=== PATIENT | female | born 1945 | race Caucasian/White ===

== ENCOUNTER → 2018-04-12 09:29 | Outpatient (CLI) | payer MEDICARE, SELFPAY ==
[2018-04-12 10:44] LABS: Creatinine Urine Random 158.2 mg/dL
[2018-04-12 10:48] LABS: Microalbumi Creatinin Ratio Ur 11.3 ug/mg CR (<30); Microalbumin Urine Random 1.8 mg/dL (0-1.6)
[2018-04-12 11:13] LABS: Alanine Aminotransferase 44 IU/L (9-52); Albumin 4.3 g/dL (3.5-5.0); Albumin Globulin Ratio 1.9 (1.0-2.8); Alkaline Phosphatase 76 U/L (38-126); Aspartate Aminotransferase 31 IU/L (14-36); BUN Creatinine Ratio 22.9 (6-22); Bilirubin Total 0.7 mg/dL (0.2-1.3); Blood Urea Nitrogen 16 mg/dL (7-17); Calcium 9.4 mg/dL (8.4-10.2); Carbon Dioxide 26 mmol/L (22-32); Chloride 102 mmol/L (98-107); Cholesterol 198 mg/dL (140-199); Estimated Glomerular Filt Rate > 60.0 mL/min (>60); Globulin 2.3 g/dL (1.7-4.1); Glucose 136 mg/dL (80-110); HDL Cholesterol 46 mg/dL (40-60); HEMOLYSIS < 15 (0-50); LDL Cholesterol Calculated 102 mg/dL (<100); Potassium 4.7 mmol/L (3.4-5.1); Sodium 141 mmol/L (137-145); Total Protein 6.6 g/dL (6.3-8.2); Triglycerides 250 mg/dL (35-150); Uric Acid 6.4 mg/dL (2.5-6.2)
[2018-04-12 11:16] LABS: Hemoglobin A1C% w Est Avg Glu 6.5 % (4.0-6.0)
== END ==
PROVIDERS: PCP Physician Assistant; Visit Provider Physician Assistant
DX: E11.9 Type 2 diabetes mellitus without complications (principal); E78.1 Pure hyperglyceridemia; I10 Essential (primary) hypertension; M10.9 Gout, unspecified
CPT/HCPCS: 36415; 80053; 80061; 82043; 82570; 83036; 84550

== ENCOUNTER → 2018-08-03 10:06 | Outpatient (CLI) | payer MEDICARE, SELFPAY ==
--- NOTE | 2018-08-03 | DI.MG.S_ITS ---
BILATERAL DIGITAL SCREENING MAMMOGRAM 3D/2D WITH CAD: 08/03/2018 CLINICAL: Routine screening. Comparison is made to exams dated: 05/27/2017 mammogram, 04/02/2016 mammogram, and 11/12/2014 mammogram - [facility]. There are scattered fibroglandular elements in both breasts. Current study was also evaluated with a Computer Aided Detection (CAD) system. No significant masses, calcifications, or other findings are seen in either breast. There has been no significant interval change. IMPRESSION: NEGATIVE There is no mammographic evidence of malignancy. A 1 year screening mammogram is recommended. This exam was interpreted at Station ID: [id number]. NOTE: For mammograms, a report in lay terms will be sent to the patient. Approximately 15% of breast malignancies will not be visualized mammographically. In the management of a palpable breast mass, a negative mammogram must not discourage biopsy of a clinically suspicious lesion. Electronically Signed By: Maury lazaro/john:08/03/2018 18:00:41 letter sent: Normal Exam ACR BI-RADS Category 1: Negative 3341F
== END ==
PROVIDERS: PCP Physician Assistant; Visit Provider Physician Assistant
DX: Z12.31 Encounter for screening mammogram for malignant neoplasm of breast (principal)
CPT/HCPCS: 77063; 77067

== ENCOUNTER → 2018-10-24 09:30 | Outpatient (CLI) | payer MEDICARE, SELFPAY ==
[2018-10-24 11:05] LABS: Hemoglobin A1C% w Est Avg Glu 6.3 % (4.0-6.0)
[2018-10-24 11:15] LABS: Alanine Aminotransferase 39 IU/L (9-52); Albumin 4.4 g/dL (3.5-5.0); Albumin Globulin Ratio 1.6 (1.0-2.8); Alkaline Phosphatase 73 U/L (38-126); Aspartate Aminotransferase 25 IU/L (14-36); BUN Creatinine Ratio 21.4 (6-22); Bilirubin Total 0.5 mg/dL (0.2-1.3); Blood Urea Nitrogen 15 mg/dL (7-17); Calcium 9.4 mg/dL (8.4-10.2); Carbon Dioxide 24 mmol/L (22-32); Chloride 102 mmol/L (98-107); Cholesterol 226 mg/dL (140-199); Estimated Glomerular Filt Rate > 60.0 mL/min (>60); Globulin 2.8 g/dL (1.7-4.1); Glucose 138 mg/dL (80-110); HDL Cholesterol 45 mg/dL (40-60); HEMOLYSIS < 15 (0-50); LDL Cholesterol Calculated 113 mg/dL (<100); Potassium 3.9 mmol/L (3.4-5.1); Sodium 138 mmol/L (137-145); Total Protein 7.2 g/dL (6.3-8.2); Triglycerides 340 mg/dL (35-150); Uric Acid 6.3 mg/dL (2.5-6.2)
== END ==
PROVIDERS: PCP Physician Assistant; Visit Provider Physician Assistant
DX: E11.9 Type 2 diabetes mellitus without complications (principal); E78.1 Pure hyperglyceridemia; I10 Essential (primary) hypertension; M10.9 Gout, unspecified; Z51.81 Encounter for therapeutic drug level monitoring
CPT/HCPCS: 36415; 80053; 80061; 83036; 84550

== ENCOUNTER → 2019-02-13 09:59 | Outpatient (CLI) | payer MEDICARE, SELFPAY ==
[2019-02-13 11:53] LABS: Hemoglobin A1C% w Est Avg Glu 6.5 % (4.0-6.0)
[2019-02-13 12:03] LABS: Aspartate Aminotransferase 30 IU/L (14-36); Cholesterol 225 mg/dL (140-199); HDL Cholesterol 52 mg/dL (40-60); LDL Cholesterol Calculated 125 mg/dL (<100); Triglycerides 242 mg/dL (35-150); Uric Acid 5.3 mg/dL (2.5-6.2)
== END ==
PROVIDERS: PCP Physician Assistant; Visit Provider Physician Assistant
DX: E11.9 Type 2 diabetes mellitus without complications (principal); M10.9 Gout, unspecified; E78.2 Mixed hyperlipidemia; Z51.81 Encounter for therapeutic drug level monitoring
CPT/HCPCS: 36415; 80061; 83036; 84450; 84550

== ENCOUNTER → 2019-02-22 10:59 | Outpatient (CLI) | payer MEDICARE, SELFPAY ==
--- NOTE | 2019-02-22 11:00 | DI.RAD.S_ITS ---
PROCEDURE: XR SHOULDER LT MIN 2V INDICATIONS: Pain at AC joint left shoulder - possible calcific tendoniti TECHNIQUE: 3 views of the shoulder were acquired. COMPARISON: None. FINDINGS: Bones: No fractures or dislocations. No suspicious bony lesions. Visualized ribs appear intact. Mild to moderate degenerative changes of the glenohumeral and acromioclavicular joints are present. There also are degenerative changes of the mid cervical spine. Soft tissues: No suspicious soft tissue calcifications. No definite calcifications overlying the humeral head are evident to suggest calcific tendinitis. IMPRESSION: Mild to moderate degenerative changes of the left shoulder joints. Dictated by: Travis Partida M.D. on 02/22/2019 at 12:25 Approved by: Travis Partida M.D. on 02/22/2019 at 12:39
== END ==
PROVIDERS: PCP Physician Assistant; Visit Provider Physician Assistant
DX: M25.512 Pain in left shoulder (principal); M19.012 Primary osteoarthritis, left shoulder; M47.812 Spondylosis without myelopathy or radiculopathy, cervical region
CPT/HCPCS: 73030

== ENCOUNTER → 2019-08-09 12:04 | Outpatient (CLI) | payer MEDICARE, SELFPAY ==
--- NOTE | 2019-08-09 | DI.MG.S_ITS ---
BILATERAL DIGITAL SCREENING MAMMOGRAM 3D/2D WITH CAD: 08/09/2019 CLINICAL: Routine screening. Comparison is made to exams dated: 08/03/2018 mammogram, 05/27/2017 mammogram, and 04/02/2016 mammogram - [facility]. There are scattered fibroglandular elements in both breasts. Current study was also evaluated with a Computer Aided Detection (CAD) system. No significant masses, calcifications, or other findings are seen in either breast. There has been no significant interval change. IMPRESSION: NEGATIVE There is no mammographic evidence of malignancy. A 1 year screening mammogram is recommended. This exam was interpreted at Station ID: [id number]. NOTE: For mammograms, a report in lay terms will be sent to the patient. Approximately 15% of breast malignancies will not be visualized mammographically. In the management of a palpable breast mass, a negative mammogram must not discourage biopsy of a clinically suspicious lesion. Electronically Signed By: Carlin boyce/john:08/09/2019 14:04:43 letter sent: Normal Exam ACR BI-RADS Category 1: Negative 3341F
== END ==
PROVIDERS: PCP Physician Assistant; Visit Provider Physician Assistant
DX: Z12.31 Encounter for screening mammogram for malignant neoplasm of breast (principal)
CPT/HCPCS: 77063; 77067

== ENCOUNTER → 2019-09-26 09:59 | Outpatient (CLI) | payer MEDICARE, SELFPAY ==
[2019-09-26 10:54] LABS: Hemoglobin A1C% w Est Avg Glu 6.5 % (4.0-6.0)
[2019-09-26 11:14] LABS: Alanine Aminotransferase 34 IU/L (<35); Albumin 4.6 g/dL (3.5-5.0); Albumin Globulin Ratio 1.6 (1.0-2.8); Alkaline Phosphatase 75 U/L (38-126); Aspartate Aminotransferase 33 IU/L (14-36); BUN Creatinine Ratio 25.7 (6-22); Bilirubin Total 0.7 mg/dL (0.2-1.3); Blood Urea Nitrogen 18 mg/dL (7-17); Calcium 10.2 mg/dL (8.4-10.2); Carbon Dioxide 25 mmol/L (22-32); Chloride 103 mmol/L (98-107); Cholesterol 226 mg/dL (140-199); Estimated Glomerular Filt Rate > 60.0 mL/min (>60); Globulin 2.8 g/dL (1.7-4.1); Glucose 135 mg/dL (80-110); HDL Cholesterol 47 mg/dL (40-60); HEMOLYSIS < 15 (0-50); LDL Cholesterol Calculated 119 mg/dL (<100); Potassium 4.3 mmol/L (3.4-5.1); Sodium 139 mmol/L (137-145); Total Protein 7.4 g/dL (6.3-8.2); Triglycerides 301 mg/dL (35-150); Uric Acid 5.5 mg/dL (2.5-6.2)
[2019-09-26 11:15] LABS: Microalbumi Creatinin Ratio Ur 9.3 ug/mg CR (<30); Microalbumin Urine Random 1.4 mg/dL (0-1.6)
== END ==
PROVIDERS: PCP Physician Assistant; Visit Provider Physician Assistant
DX: E11.9 Type 2 diabetes mellitus without complications (principal); E66.01 Morbid (severe) obesity due to excess calories; E78.2 Mixed hyperlipidemia; I10 Essential (primary) hypertension; M10.9 Gout, unspecified
CPT/HCPCS: 36415; 80053; 80061; 82043; 82570; 83036; 84550

== ENCOUNTER → 2019-12-21 10:19 | Outpatient (CLI) | payer MEDICARE, SELFPAY ==
[2019-12-21 12:56] LABS: Alanine Aminotransferase 29 IU/L (<35); Albumin 4.4 g/dL (3.5-5.0); Albumin Globulin Ratio 1.8 (1.0-2.8); Alkaline Phosphatase 68 U/L (38-126); Aspartate Aminotransferase 30 IU/L (14-36); BUN Creatinine Ratio 20.6 (6-22); Bilirubin Total 0.7 mg/dL (0.2-1.3); Blood Urea Nitrogen 14 mg/dL (7-17); Carbon Dioxide 22 mmol/L (22-32); Chloride 106 mmol/L (98-107); Cholesterol 114 mg/dL (140-199); Estimated Glomerular Filt Rate > 60.0 mL/min (>60); Globulin 2.5 g/dL (1.7-4.1); Glucose 135 mg/dL (80-110); HDL Cholesterol 47 mg/dL (40-60); HEMOLYSIS < 15 (0-50); LDL Cholesterol Calculated 36 mg/dL (<100); Potassium 4.5 mmol/L (3.4-5.1); Sodium 138 mmol/L (137-145); Total Protein 6.9 g/dL (6.3-8.2); Triglycerides 157 mg/dL (35-150)
== END ==
PROVIDERS: PCP Physician Assistant; Referring Provider Physician Assistant; Visit Provider Physician Assistant
DX: Z51.81 Encounter for therapeutic drug level monitoring (principal); E78.2 Mixed hyperlipidemia
CPT/HCPCS: 36415; 80053; 80061

== ENCOUNTER → 2020-04-25 09:50 | Outpatient (CLI) | payer MEDICARE, SELFPAY ==
[2020-04-25 11:11] LABS: Hemoglobin A1C% w Est Avg Glu 7.4 % (4.0-6.0)
[2020-04-25 11:25] LABS: Alanine Aminotransferase 32 IU/L (<35); Albumin 4.5 g/dL (3.5-5.0); Albumin Globulin Ratio 1.8 (1.0-2.8); Alkaline Phosphatase 70 U/L (38-126); Aspartate Aminotransferase 31 IU/L (14-36); BUN Creatinine Ratio 23.9 (6-22); Bilirubin Total 0.7 mg/dL (0.2-1.3); Blood Urea Nitrogen 16 mg/dL (7-17); Calcium 9.8 mg/dL (8.4-10.2); Carbon Dioxide 24 mmol/L (22-32); Chloride 103 mmol/L (98-107); Cholesterol 138 mg/dL (140-199); Estimated Glomerular Filt Rate > 60.0 mL/min (>60); Globulin 2.5 g/dL (1.7-4.1); Glucose 154 mg/dL (80-110); HDL Cholesterol 57 mg/dL (40-60); HEMOLYSIS < 15 (0-50); LDL Cholesterol Calculated 38 mg/dL (<100); Potassium 4.2 mmol/L (3.4-5.1); Sodium 137 mmol/L (137-145); Triglycerides 216 mg/dL (35-150)
[2020-04-25 11:39] LABS: Free T3, Triiodothyronine Free 3.53 pg/mL (2.77-5.27)
[2020-04-25 11:46] LABS: Creatinine Urine Random 138.4 mg/dL
[2020-04-25 11:50] LABS: Microalbumi Creatinin Ratio Ur 33.9 ug/mg CR (<30); Microalbumin Urine Random 4.7 mg/dL (0-1.6)
[2020-04-25 11:53] LABS: Thyroid Stimulating Hormone 2.42 uIU/mL (0.47-4.68)
== END ==
PROVIDERS: PCP Nurse Practitioner; Referring Provider Nurse Practitioner; Visit Provider Nurse Practitioner
DX: E11.9 Type 2 diabetes mellitus without complications (principal); E78.1 Pure hyperglyceridemia; E78.2 Mixed hyperlipidemia; I10 Essential (primary) hypertension; K21.9 Gastro-esophageal reflux disease without esophagitis; Z79.899 Other long term (current) drug therapy
CPT/HCPCS: 36415; 80053; 80061; 82043; 82570; 83036; 84439; 84443; 84481

== ENCOUNTER → 2020-07-21 14:57 | Outpatient (CLI) | payer MEDICARE, SELFPAY ==
--- NOTE | 2020-07-21 14:59 | DI.RAD.S_ITS ---
PROCEDURE: XR HIP W PEL IF DONE RT 2V INDICATIONS: evaluate for fractures, s/p falls TECHNIQUE: AP pelvis with lateral view(s) of the right hip(s). COMPARISON: None. FINDINGS: Bones: No fracture. Moderate bilateral hip joint degeneration. Lower lumbar spondylosis and facet arthropathy. There is bilateral sacroiliac sclerosis. Soft tissues: The visualized bowel gas pattern is normal. No suspicious soft tissue calcifications. IMPRESSION: Moderate bilateral hip joint degeneration. Dictated by: Jay Alcantar M.D. on 07/21/2020 at 16:36 Approved by: Jay Alcantar M.D. on 07/21/2020 at 16:40
--- NOTE | 2020-07-21 14:59 | DI.RAD.S_ITS ---
PROCEDURE: XR LUMBAR SPINE 2-3V INDICATIONS: evaluate for fractures, s/p falls TECHNIQUE: 3 views of the lumbar spine were acquired. COMPARISON: None. FINDINGS: Bones: No fracture. Grade 1 anterolisthesis of L4 on L5. Multilevel degenerative endplate sclerosis and spurring. Diffuse facet arthropathy. Grade 1 retrolisthesis of L2 on L3. Trace anterolisthesis of L3 on L4. Mild dextrocurvature. Severe diffuse narrowing of the lumbar disc spaces Soft tissues: Overlying bowel gas pattern is normal. No suspicious soft tissue calcifications. IMPRESSION: Severe multilevel lumbar spondylosis and facet arthropathy Multilevel spondylolisthesis as above. Mild dextrocurvature. Dictated by: Jay Alcantar M.D. on 07/21/2020 at 16:40 Approved by: Jay Alcantar M.D. on 07/21/2020 at 16:44
== END ==
PROVIDERS: PCP Nurse Practitioner; Referring Provider Nurse Practitioner; Visit Provider Nurse Practitioner
DX: M47.816 Spondylosis without myelopathy or radiculopathy, lumbar region (principal); M43.16 Spondylolisthesis, lumbar region; M16.0 Bilateral primary osteoarthritis of hip; W19.XXXA Unspecified fall, initial encounter
CPT/HCPCS: 72100; 73502

== ENCOUNTER → 2020-08-14 10:03 | Outpatient (CLI) | payer MEDICARE, SELFPAY ==
[2020-08-14 10:55] LABS: Hemoglobin A1C% w Est Avg Glu 7.2 % (4.0-6.0)
[2020-08-14 11:13] LABS: Alanine Aminotransferase 59 IU/L (<35); Albumin 4.2 g/dL (3.5-5.0); Albumin Globulin Ratio 1.6 (1.0-2.8); Alkaline Phosphatase 109 U/L (38-126); Aspartate Aminotransferase 43 IU/L (14-36); BUN Creatinine Ratio 21.1 (6-22); Bilirubin Total 0.6 mg/dL (0.2-1.3); Blood Urea Nitrogen 15 mg/dL (7-17); Calcium 9.6 mg/dL (8.4-10.2); Carbon Dioxide 27 mmol/L (22-32); Chloride 103 mmol/L (98-107); Cholesterol 112 mg/dL (140-199); Estimated Glomerular Filt Rate > 60.0 mL/min (>60); Globulin 2.6 g/dL (1.7-4.1); Glucose 151 mg/dL (80-110); HDL Cholesterol 49 mg/dL (40-60); HEMOLYSIS < 15 (0-50); LDL Cholesterol Calculated 41 mg/dL (<100); Potassium 4.2 mmol/L (3.4-5.1); Sodium 136 mmol/L (137-145); Total Protein 6.8 g/dL (6.3-8.2); Triglycerides 108 mg/dL (35-150)
[2020-08-14 11:19] LABS: Microalbumin Urine Random 2.4 mg/dL (0-1.6)
[2020-08-14 11:20] LABS: Microalbumi Creatinin Ratio Ur 18.6 ug/mg CR (<30)
== END ==
PROVIDERS: PCP Nurse Practitioner; Referring Provider Nurse Practitioner; Visit Provider Nurse Practitioner
DX: E11.9 Type 2 diabetes mellitus without complications (principal); E78.1 Pure hyperglyceridemia; E78.2 Mixed hyperlipidemia; Z79.899 Other long term (current) drug therapy
CPT/HCPCS: 36415; 80053; 80061; 82043; 82570; 83036

== ENCOUNTER → 2020-08-22 11:55 | Outpatient (CLI) | payer MEDICARE, SELFPAY ==
--- NOTE | 2020-08-22 | DI.MG.S_ITS ---
BILATERAL DIGITAL SCREENING MAMMOGRAM 3D/2D WITH CAD: 08/22/2020 CLINICAL: Routine screening. Comparison is made to exams dated: 08/09/2019 mammogram, 08/03/2018 mammogram, and 05/27/2017 mammogram - [facility]. There are scattered fibroglandular elements in both breasts. Current study was also evaluated with a Computer Aided Detection (CAD) system. No significant masses, calcifications, or other findings are seen in either breast. There has been no significant interval change. IMPRESSION: NEGATIVE There is no mammographic evidence of malignancy. A 1 year screening mammogram is recommended. This exam was interpreted at Station ID: [id number]. NOTE: For mammograms, a report in lay terms will be sent to the patient. Approximately 15% of breast malignancies will not be visualized mammographically. In the management of a palpable breast mass, a negative mammogram must not discourage biopsy of a clinically suspicious lesion. Electronically Signed By: Carlin boyce/john:08/22/2020 12:42:37 letter sent: Normal Exam ACR BI-RADS Category 1: Negative 3341F
== END ==
PROVIDERS: PCP Nurse Practitioner; Referring Provider Nurse Practitioner; Visit Provider Nurse Practitioner
DX: Z12.31 Encounter for screening mammogram for malignant neoplasm of breast (principal)
CPT/HCPCS: 77063; 77067

== ENCOUNTER → 2020-08-27 17:27 | Outpatient (CLI) | payer MEDICARE, SELFPAY ==
--- NOTE | 2020-08-27 17:31 | DI.MRI.S_ITS ---
PROCEDURE: MR LUMBAR SPINE WO CON INDICATIONS: Gait instability TECHNIQUE: Noncontrast sagittal T1 spin echo and T2 fast echo, sagittal STIR, axial T1 and T2 fast spin echo through the lumbar spine. In cases with scoliosis, additional coronal T2 fast spin echo may be performed. COMPARISON: None. FINDINGS: Image quality: Excellent. Alignment and Curvature: There is mild L4-L5 anterolisthesis secondary to facet hypertrophy. There is trace L2-L3 retrolisthesis. Bone Marrow: Reactive endplate changes noted adjacent to the L1-L2, L2-L3, L3-L4, L4-L5 and L5-S1 discs. No acute vertebral body compression fractures. Spinal Cord: Conus medullaris terminates at the L1 level. Visualized cord demonstrates normal signal and size. Paraspinous Soft Tissues: No paravertebral masses. T11-T12: Loss of disc signal and height. Moderate, diffuse disc bulge. Moderate bilateral facet hypertrophy. Moderate narrowing of the central canal. Moderate bilateral neural foraminal narrowing. No neural compression. T12-L1: Loss of disc signal. Minimal, diffuse disc bulge. Mild bilateral facet hypertrophy. No central stenosis. No neural foraminal narrowing. No neural compression. L1-L2: Loss of disc signal and height. Moderate, diffuse disc bulge. Mild bilateral facet hypertrophy. Mild narrowing of the central canal. Moderate bilateral neural foraminal narrowing. No neural compression. L2-L3: Loss of disc signal and height. Moderate, diffuse disc bulge. Moderate, bilateral facet hypertrophy. Mild to moderate narrowing of the central canal. Mild right and moderate left neural foraminal narrowing. No neural compression. L3-L4: Loss of disc signal. Mild, diffuse disc bulge. Moderate-sized central disc protrusion.Severe narrowing of the central canal with compression of the nerve roots of the cauda equina.. Moderate bilateral neural foraminal narrowing. L4-L5: Loss of disc signal and height. Moderate, diffuse disc bulge. Severe bilateral facet hypertrophy. Moderate ligamentum flavum hypertrophy. Severe narrowing of the central canal with compression of the nerve roots of the cauda equina. Moderate bilateral neural foraminal narrowing. L5-S1: Loss of disc signal and height. Minimal, diffuse disc bulge. Mild bilateral facet hypertrophy. No central stenosis. Moderate right and mild left neural foraminal narrowing. No neural compression. IMPRESSION: 1. Grade 1 L4-L5 degenerative spondylolisthesis. 2. Multilevel degenerative disc disease. 3. Multilevel facet arthropathy. 4. Severe L3-L4 and L4-L5 central canal narrowing with compression of traversing nerve roots of the cauda equina. Please correlate with clinical data. Dictated by: Shayy Man MD, PhD on 08/28/2020 at 11:06 Approved by: Shayy Man MD, PhD on 08/28/2020 at 11:10
== END ==
PROVIDERS: PCP Nurse Practitioner; Referring Provider Physical Medicine & Rehabilitation; Visit Provider Physical Medicine & Rehabilitation
DX: M53.3 Sacrococcygeal disorders, not elsewhere classified (principal); M51.16 Intervertebral disc disorders with radiculopathy, lumbar region; M47.26 Other spondylosis with radiculopathy, lumbar region; M48.061 Spinal stenosis, lumbar region without neurogenic claudication; M43.16 Spondylolisthesis, lumbar region; M16.9 Osteoarthritis of hip, unspecified; R26.89 Other abnormalities of gait and mobility
CPT/HCPCS: 72148

== ENCOUNTER → 2020-11-17 11:57 | Outpatient (CLI) | payer MEDICARE, SELFPAY ==
[2020-11-17] MEDS: COVID-19 VACC, Ad26(JANSSEN)/PF 0.5 ML IM (12:13)
== END ==
PROVIDERS: PCP Nurse Practitioner; Visit Provider Internal Medicine
DX: Z23 Encounter for immunization (principal)
CPT/HCPCS: 0031A; 91303

== ENCOUNTER → 2020-12-05 10:06 | Outpatient (CLI) | payer MEDICARE, SELFPAY ==
[2020-12-05 11:00] LABS: Hemoglobin A1C% w Est Avg Glu 6.7 % (4.0-6.0)
[2020-12-05 11:50] LABS: Alanine Aminotransferase 51 IU/L (<35); Albumin 4.4 g/dL (3.5-5.0); Albumin Globulin Ratio 1.6 (1.0-2.8); Alkaline Phosphatase 98 U/L (38-126); Aspartate Aminotransferase 43 IU/L (14-36); BUN Creatinine Ratio 22.9 (6-22); Bilirubin Total 0.6 mg/dL (0.2-1.3); Blood Urea Nitrogen 19 mg/dL (7-17); Calcium 10.2 mg/dL (8.4-10.2); Carbon Dioxide 25 mmol/L (22-32); Chloride 103 mmol/L (98-107); Cholesterol 130 mg/dL (140-199); Estimated Glomerular Filt Rate > 60.0 mL/min (>60); Globulin 2.7 g/dL (1.7-4.1); Glucose 140 mg/dL (80-110); HDL Cholesterol 46 mg/dL (40-60); HEMOLYSIS < 15 (0-50); LDL Cholesterol Calculated 50 mg/dL (<100); Potassium 4.6 mmol/L (3.4-5.1); Sodium 139 mmol/L (137-145); Total Protein 7.1 g/dL (6.3-8.2); Triglycerides 171 mg/dL (35-150)
== END ==
PROVIDERS: PCP Nurse Practitioner; Referring Provider Nurse Practitioner; Visit Provider Nurse Practitioner
DX: E11.9 Type 2 diabetes mellitus without complications (principal); E78.2 Mixed hyperlipidemia; I10 Essential (primary) hypertension; Z79.899 Other long term (current) drug therapy
CPT/HCPCS: 36415; 80053; 80061; 83036

== ENCOUNTER → 2021-03-18 14:01 | Outpatient (CLI) | payer MEDICARE, SELFPAY | PROVIDERS: PCP Nurse Practitioner; Referring Provider Nurse Practitioner; Visit Provider Nurse Practitioner | DX: Z78.0 Asymptomatic menopausal state (principal) | CPT/HCPCS: 77080 ==

== ENCOUNTER → 2021-03-19 10:33 | Outpatient (CLI) | payer MEDICARE, SELFPAY ==
[2021-03-19 12:33] LABS: Hemoglobin A1C% w Est Avg Glu 6.8 % (4.0-6.0)
[2021-03-19 12:37] LABS: Alanine Aminotransferase 84 IU/L (<35); Albumin 4.3 g/dL (3.5-5.0); Albumin Globulin Ratio 1.3 (1.0-2.8); Alkaline Phosphatase 98 U/L (38-126); Aspartate Aminotransferase 77 IU/L (14-36); BUN Creatinine Ratio 23.8 (6-22); Bilirubin Total 0.5 mg/dL (0.2-1.3); Blood Urea Nitrogen 19 mg/dL (7-17); Carbon Dioxide 26 mmol/L (22-32); Chloride 102 mmol/L (98-107); Cholesterol 117 mg/dL (140-199); Estimated Glomerular Filt Rate > 60.0 mL/min (>60); Globulin 3.2 g/dL (1.7-4.1); Glucose 149 mg/dL (80-110); HDL Cholesterol 46 mg/dL (40-60); HEMOLYSIS < 15 (0-50); LDL Cholesterol Calculated 43 mg/dL (<100); Potassium 4.2 mmol/L (3.4-5.1); Sodium 136 mmol/L (137-145); Total Protein 7.5 g/dL (6.3-8.2); Triglycerides 139 mg/dL (35-150)
== END ==
PROVIDERS: PCP Nurse Practitioner; Referring Provider Nurse Practitioner; Visit Provider Nurse Practitioner
DX: E11.9 Type 2 diabetes mellitus without complications (principal); E78.2 Mixed hyperlipidemia; I10 Essential (primary) hypertension; Z79.899 Other long term (current) drug therapy
CPT/HCPCS: 36415; 80053; 80061; 83036

== ENCOUNTER → 2021-04-09 14:22 | Outpatient (CLI) | payer MEDICARE, SELFPAY ==
--- NOTE | 2021-04-09 14:23 | DI.US.S_ITS ---
PROCEDURE: US ABDOMEN LIMITED INDICATIONS: elevated LFTS TECHNIQUE: Real-time focused scanning was performed of the abdomen, with image documentation. COMPARISON: None. FINDINGS: Liver is diffusely increased in echogenicity. No focal hepatic abnormalities identified. Normal hepatic size. Gallbladder is not visualized. No biliary dilatation. Normal pancreas. IMPRESSION: 1. Increased hepatic echogenicity noted possibly related to hepatic steatosis but other sources of hepatocellular disease cannot be excluded. Recommend clinical correlation. 2. Gallbladder not visualized. Recommend correlation with surgical history. Dictated by: Tyrone MCKEON Interpreted: Roshan Perry MD on 04/09/2021 at 14:50 Transcribed by: ALEX on 04/09/2021 at 14:50 Approved by: Roshan Perry M.D. on 04/09/2021 at 15:41
== END ==
PROVIDERS: PCP Nurse Practitioner; Referring Provider Nurse Practitioner; Visit Provider Nurse Practitioner
DX: R79.89 Other specified abnormal findings of blood chemistry (principal)
CPT/HCPCS: 76705

== ENCOUNTER → 2021-04-10 11:25 | Outpatient (CLI) | payer MEDICARE, SELFPAY ==
[2021-04-11 06:27] LABS: HBsAg Screen Negative (Negative); Hepatitis A Antibody IgM Negative (Negative); Hepatitis B Core Antibody IgM Negative (Negative); Hepatitis C Antibody <0.1 s/co ratio (0.0-0.9)
== END ==
PROVIDERS: PCP Nurse Practitioner; Referring Provider Nurse Practitioner; Visit Provider Nurse Practitioner
DX: R79.89 Other specified abnormal findings of blood chemistry (principal); R94.5 Abnormal results of liver function studies
CPT/HCPCS: 36415; 80074

== ENCOUNTER → 2021-07-06 11:06 | Outpatient (CLI) | payer MEDICARE, SELFPAY ==
--- NOTE | 2021-07-06 11:10 | DI.RAD.S_ITS ---
PROCEDURE: XR ANKLE LT MIN 3V INDICATIONS: left foot ankle pain, difficulty bearing weight/standing TECHNIQUE: 3 views of the ankle were acquired. COMPARISON: None. FINDINGS: Bones: No fractures or dislocations. Ankle mortise is normally aligned. No suspicious bony lesions. Soft tissues: No tibiotalar joint effusion. Achilles tendon appears normal. IMPRESSION: No acute fracture. No osseous lesion. If symptoms and/or clinical suspicion for pathology persist, further assessment with repeat, or advanced imaging (e.g., CT, MRI, or bone scan) may be helpful for further assessment. Dictated by: Dio Matta M.D. on 07/06/2021 at 15:46 Approved by: Dio Matta M.D. on 07/06/2021 at 15:47
--- NOTE | 2021-07-06 11:10 | DI.RAD.S_ITS ---
PROCEDURE: XR FOOT LT MIN 3V INDICATIONS: left foot ankle pain, difficulty bearing weight TECHNIQUE: 3 views of the foot were acquired. COMPARISON: None. FINDINGS: Bones: There is moderate to severe hallux valgus and pes planus with weight-bearing. Calcaneal pitch angle measures 9.9 degrees. Moderate osteoarthritic changes throughout midfoot and forefoot joints are seen most prominent at 1st MTP joint with dorsal marginal osteophyte formation concerning for hallux limitus. No suspicious bony lesions. Soft tissues: No tibiotalar joint effusion. Achilles tendon appears normal. IMPRESSION: Moderate to severe hallux valgus and pes planus as above. Dbgu-ze-vnbwsbuh midfoot and forefoot joint osteoarthritis more prominent at 1st MTP joint with suggestion of hallux limitus. No fracture or dislocation. Dictated by: Kyle Mcdaniels M.D. on 07/06/2021 at 13:02 Approved by: Kyle Mcdaniels M.D. on 07/06/2021 at 13:03
== END ==
PROVIDERS: PCP Nurse Practitioner; Referring Provider Nurse Practitioner; Visit Provider Nurse Practitioner
DX: M25.572 Pain in left ankle and joints of left foot (principal); M79.672 Pain in left foot; R29.898 Other symptoms and signs involving the musculoskeletal system; M20.12 Hallux valgus (acquired), left foot; M21.42 Flat foot [pes planus] (acquired), left foot; M19.072 Primary osteoarthritis, left ankle and foot
CPT/HCPCS: 73610; 73630

== ENCOUNTER → 2021-07-13 09:37 | Outpatient (CLI) | payer MEDICARE, SELFPAY ==
[2021-07-13 12:43] LABS: Hemoglobin A1C% w Est Avg Glu 6.9 % (4.0-6.0)
[2021-07-13 12:44] LABS: Alanine Aminotransferase 371 IU/L (<35); Albumin 4.5 g/dL (3.5-5.0); Albumin Globulin Ratio 1.4 (1.0-2.8); Alkaline Phosphatase 123 U/L (38-126); Aspartate Aminotransferase 216 IU/L (14-36); BUN Creatinine Ratio 22.9 (6-22); Bilirubin Total 0.7 mg/dL (0.2-1.3); Blood Urea Nitrogen 16 mg/dL (7-17); Calcium 10.1 mg/dL (8.4-10.2); Carbon Dioxide 26 mmol/L (22-32); Chloride 101 mmol/L (98-107); Cholesterol 129 mg/dL (140-199); Estimated Glomerular Filt Rate > 60.0 mL/min (>60); Globulin 3.3 g/dL (1.7-4.1); Glucose 149 mg/dL (80-110); HDL Cholesterol 49 mg/dL (40-60); HEMOLYSIS < 15 (0-50); LDL Cholesterol Calculated 54 mg/dL (<100); Potassium 4.2 mmol/L (3.4-5.1); Sodium 138 mmol/L (137-145); Total Protein 7.8 g/dL (6.3-8.2); Triglycerides 131 mg/dL (35-150)
[2021-07-13 13:04] LABS: Free T3, Triiodothyronine Free 2.68 pg/mL (2.77-5.27); Free T4, Direct Thyroxine 0.98 ng/dL (0.78-2.19)
[2021-07-13 13:18] LABS: Thyroid Stimulating Hormone 2.13 uIU/mL (0.47-4.68)
[2021-07-13 15:19] LABS: Microalbumi Creatinin Ratio Ur 7.6 ug/mg CR (<30); Microalbumin Urine Random 1.2 mg/dL (0-1.6)
== END ==
PROVIDERS: PCP Nurse Practitioner; Referring Provider Nurse Practitioner; Visit Provider Nurse Practitioner
DX: E11.9 Type 2 diabetes mellitus without complications (principal); E78.2 Mixed hyperlipidemia; I10 Essential (primary) hypertension; Z79.899 Other long term (current) drug therapy
CPT/HCPCS: 36415; 80053; 80061; 82043; 82570; 83036; 84439; 84443; 84481

== ENCOUNTER → 2021-07-15 08:44 | Outpatient (CLI) | payer MEDICARE, SELFPAY ==
--- NOTE | 2021-07-15 08:54 | DI.CT.S_ITS ---
PROCEDURE: CT ABDOMEN WO/W CON INDICATIONS: elevated LFT's TECHNIQUE: 4 phase scanning was performed. Non-contrast 5 mm axial sections acquired from the diaphragm to the iliac crests. Following the administration of intravenous contrast, 5 mm thick arterial-phase, portal venous-phase, and 5-minute delayed phase images were acquired through the liver. 5 mm thick coronal and sagittal reformats were performed. For radiation dose reduction, the following was used: automated exposure control, adjustment of mA and/or kV according to patient size. COMPARISON: [facility], , US ABDOMEN LIMITED, 04/09/2021, 14:31. FINDINGS: Image quality: Excellent. Lung bases: There is mild atelectasis in the lung bases. Heart size is normal. There is a small hiatal hernia. Liver: No discrete hepatic mass or suspicious enhancement identified. No abnormal areas of washout. Other solid organs: Gallbladder is surgically absent. Biliary system is non dilated. Pancreas is normal in morphology. Spleen is normal in size and enhancement. There is is nodular thickening the left adrenal gland measuring up to 1.2 cm. This demonstrates indeterminate attenuation values. Kidneys demonstrate no hydronephrosis. Nodes and vessels: No retroperitoneal or mesenteric adenopathy by size criteria. Aorta and inferior vena cava are normal in size. Bowel and peritoneum: Visualized bowel loops are normal in caliber. There is colonic diverticulosis noted. No free fluid or air. Bones: No suspicious bony lesions. No vertebral body compression fractures. Miscellaneous: No ventral hernias. IMPRESSION: 1. No discrete hepatic mass or suspicious enhancement. Dictated by: Maury Curry M.D. on 07/15/2021 at 10:40 Approved by: Maury Curry M.D. on 07/15/2021 at 10:45
[2021-07-15 09:42] LABS: Ammonia (NH3) < 9 umol/L (9-30)
[2021-07-15 09:44] LABS: Alanine Aminotransferase 318 IU/L (<35); Albumin 4.1 g/dL (3.5-5.0); Albumin Globulin Ratio 1.3 (1.0-2.8); Alkaline Phosphatase 116 U/L (38-126); Amylase 93 U/L (30-110); Aspartate Aminotransferase 208 IU/L (14-36); BUN Creatinine Ratio 20.2 (6-22); Bilirubin Total 0.6 mg/dL (0.2-1.3); Blood Urea Nitrogen 17 mg/dL (7-17); Calcium 9.3 mg/dL (8.4-10.2); Carbon Dioxide 26 mmol/L (22-32); Chloride 99 mmol/L (98-107); Estimated Glomerular Filt Rate > 60.0 mL/min (>60); Globulin 3.1 g/dL (1.7-4.1); Glucose 135 mg/dL (80-110); HEMOLYSIS < 15 (0-50); Lipase 219 U/L (23-300); Potassium 4.5 mmol/L (3.4-5.1); Sodium 137 mmol/L (137-145); Total Protein 7.2 g/dL (6.3-8.2)
== END ==
PROVIDERS: PCP Nurse Practitioner; Referring Provider Family Medicine; Visit Provider Family Medicine
DX: R79.89 Other specified abnormal findings of blood chemistry (principal); R74.8 Abnormal levels of other serum enzymes; K44.9 Diaphragmatic hernia without obstruction or gangrene; K57.90 Diverticulosis of intestine, part unspecified, without perforation or abscess without bleeding
CPT/HCPCS: 36415; 74170; 80053; 82140; 82150; 83690

== ENCOUNTER → 2021-07-24 09:42 | Outpatient (CLI) | payer MEDICARE, SELFPAY ==
[2021-07-24 10:59] LABS: Add Manual Diff / Slide Review NO; Basophils Absolute Auto 0 /uL (0-100); Basophils Percent Auto 0.6 % (0-2); Eosinophils Absolute Auto 200 /uL (0-450); Eosinophils Percent Auto 2.9 % (2-4); Hemoglobin 12.4 g/dL (12.0-16.0); Lymphocytes Absolute Auto 2200 /uL (1100-4500); Mean Corpuscular HGB Conc 32.6 % (30-36); Mean Corpuscular Hemoglobin 28.7 PG (26-34); Mean Corpuscular Volume 88.1 fL (80-100); Monocytes Absolute Auto 500 /uL (0-900); Monocytes Percent Auto 8.7 % (3-14); Neutrophils Absolute Auto 3300 /uL (1500-7000); Neutrophils Percent Auto 52.8 % (50-75); Platelet Count 292 X10^3/uL (150-400); Red Blood Cell Count 4.31 X10^6/uL (4.0-5.2); Red Cell Distribution Width 16.4 % (11.6-14.8); White Blood Cell Count 6.2 X10^3/uL (4.5-11.0)
[2021-07-24 11:53] LABS: Erythrocyte Sedimentation Rate 18 MM/HR (0-20)
[2021-07-24 12:04] LABS: Alanine Aminotransferase 217 IU/L (<35); Albumin 4.3 g/dL (3.5-5.0); Albumin Globulin Ratio 1.2 (1.0-2.8); Alkaline Phosphatase 109 U/L (38-126); Aspartate Aminotransferase 116 IU/L (14-36); BUN Creatinine Ratio 17.6 (6-22); Bilirubin Total 0.7 mg/dL (0.2-1.3); Blood Urea Nitrogen 18 mg/dL (7-17); Calcium 9.9 mg/dL (8.4-10.2); Carbon Dioxide 27 mmol/L (22-32); Chloride 100 mmol/L (98-107); Estimated Glomerular Filt Rate 52.7 mL/min (>60); Globulin 3.5 g/dL (1.7-4.1); Glucose 129 mg/dL (80-110); HEMOLYSIS < 15 (0-50); Potassium 4.3 mmol/L (3.4-5.1); Sodium 138 mmol/L (137-145); Total Protein 7.8 g/dL (6.3-8.2)
== END ==
PROVIDERS: PCP Nurse Practitioner; Referring Provider Nurse Practitioner; Visit Provider Nurse Practitioner
DX: R94.5 Abnormal results of liver function studies (principal)
CPT/HCPCS: 36415; 80053; 85025; 85651

== ENCOUNTER → 2021-09-21 10:12 | Outpatient (CLI) | payer MEDICARE, SELFPAY ==
[2021-09-21 12:51] LABS: Alanine Aminotransferase 31 IU/L (<35); Albumin 4.4 g/dL (3.5-5.0); Albumin Globulin Ratio 1.4 (1.0-2.8); Alkaline Phosphatase 73 U/L (38-126); Aspartate Aminotransferase 32 IU/L (14-36); Bilirubin Total 0.6 mg/dL (0.2-1.3); Bilirubin Unconjugated 0.5 mg/dL (0.0-1.1); Globulin 3.2 g/dL (1.7-4.1); HEMOLYSIS < 15 (0-50); Total Protein 7.6 g/dL (6.3-8.2)
== END ==
PROVIDERS: PCP Nurse Practitioner; Referring Provider Nurse Practitioner; Visit Provider Nurse Practitioner
DX: R94.5 Abnormal results of liver function studies (principal); Z78.9 Other specified health status
CPT/HCPCS: 36415; 80076

== ENCOUNTER → 2021-09-23 14:27 | Outpatient (CLI) | payer MEDICARE, SELFPAY ==
--- NOTE | 2021-09-23 14:29 | DI.MG.S_ITS ---
BILATERAL DIGITAL SCREENING MAMMOGRAM 3D/2D WITH CAD: 09/23/2021 CLINICAL: Routine screening. Comparison is made to exams dated: 08/22/2020 mammogram, 08/09/2019 mammogram, and 08/03/2018 mammogram - [facility]. There are scattered fibroglandular elements in both breasts. Current study was also evaluated with a Computer Aided Detection (CAD) system. No significant masses, calcifications, or other findings are seen in either breast. There has been no significant interval change. IMPRESSION: NEGATIVE There is no mammographic evidence of malignancy. A 1 year screening mammogram is recommended. This exam was interpreted at Station ID: [id number]. NOTE: For mammograms, a report in lay terms will be sent to the patient. Approximately 15% of breast malignancies will not be visualized mammographically. In the management of a palpable breast mass, a negative mammogram must not discourage biopsy of a clinically suspicious lesion. Electronically Signed By: Darío Chandler M.D., jr/john:09/23/2021 15:02:13 letter sent: Normal Exam ACR BI-RADS Category 1: Negative 3341F
== END ==
PROVIDERS: PCP Nurse Practitioner; Referring Provider Nurse Practitioner; Visit Provider Nurse Practitioner
DX: Z12.31 Encounter for screening mammogram for malignant neoplasm of breast (principal)
CPT/HCPCS: 77063; 77067

== ENCOUNTER → 2021-12-07 10:11 | Outpatient (CLI) | payer MEDICARE, SELFPAY ==
[2021-12-07 11:55] LABS: Hemoglobin A1C% w Est Avg Glu 6.4 % (4.0-6.0)
[2021-12-07 12:01] LABS: Alanine Aminotransferase 26 IU/L (<35); Albumin 4.3 g/dL (3.5-5.0); Albumin Globulin Ratio 1.7 (1.0-2.8); Alkaline Phosphatase 67 U/L (38-126); Aspartate Aminotransferase 24 IU/L (14-36); BUN Creatinine Ratio 18.4 (6-22); Bilirubin Total 0.5 mg/dL (0.2-1.3); Blood Urea Nitrogen 16 mg/dL (7-17); Calcium 9.7 mg/dL (8.4-10.2); Carbon Dioxide 25 mmol/L (22-32); Chloride 103 mmol/L (98-107); Cholesterol 202 mg/dL (140-199); Estimated Glomerular Filt Rate > 60.0 mL/min (>60); Globulin 2.6 g/dL (1.7-4.1); Glucose 133 mg/dL (80-110); HDL Cholesterol 43 mg/dL (40-60); HEMOLYSIS < 15 (0-50); LDL Cholesterol Calculated 110 mg/dL (<100); Potassium 4.5 mmol/L (3.4-5.1); Sodium 136 mmol/L (137-145); Total Protein 6.9 g/dL (6.3-8.2); Triglycerides 244 mg/dL (35-150)
[2021-12-07 12:56] LABS: Microalbumi Creatinin Ratio Ur 13.8 ug/mg CR (<30); Microalbumin Urine Random 2.5 mg/dL (0-1.6)
== END ==
PROVIDERS: PCP Nurse Practitioner; Referring Provider Nurse Practitioner; Visit Provider Nurse Practitioner
DX: Z79.899 Other long term (current) drug therapy (principal); I10 Essential (primary) hypertension; R94.5 Abnormal results of liver function studies; E78.2 Mixed hyperlipidemia; E78.1 Pure hyperglyceridemia
CPT/HCPCS: 36415; 80053; 80061; 82043; 82570; 83036

== ENCOUNTER → 2022-03-18 09:51 | Outpatient (CLI) | payer MEDICARE, SELFPAY ==
[2022-03-18 10:49] LABS: Hemoglobin A1C% w Est Avg Glu 6.7 % (4.0-6.0)
[2022-03-18 10:58] LABS: Alanine Aminotransferase 29 IU/L (<35); Albumin 4.5 g/dL (3.5-5.0); Albumin Globulin Ratio 1.6 (1.0-2.8); Alkaline Phosphatase 70 U/L (38-126); Aspartate Aminotransferase 27 IU/L (14-36); BUN Creatinine Ratio 19.6 (6-22); Bilirubin Total 0.6 mg/dL (0.2-1.3); Blood Urea Nitrogen 18 mg/dL (7-17); Calcium 9.8 mg/dL (8.4-10.2); Carbon Dioxide 21 mmol/L (22-32); Chloride 102 mmol/L (98-107); Cholesterol 115 mg/dL (140-199); Creatinine Urine Random 160.7 mg/dL; Estimated Glomerular Filt Rate > 60 mL/min (>60); Globulin 2.8 g/dL (1.7-4.1); Glucose 134 mg/dL (80-110); HDL Cholesterol 46 mg/dL (40-60); HEMOLYSIS < 15 (0-50); LDL Cholesterol Calculated 33 mg/dL (<100); Potassium 4.3 mmol/L (3.4-5.1); Sodium 136 mmol/L (137-145); Total Protein 7.3 g/dL (6.3-8.2); Triglycerides 181 mg/dL (35-150)
[2022-03-18 11:04] LABS: Microalbumi Creatinin Ratio Ur 7.4 ug/mg CR (<30); Microalbumin Urine Random 1.2 mg/dL (0-1.6)
[2022-03-18 11:30] LABS: Free T3, Triiodothyronine Free 3.15 pg/mL (2.77-5.27); Free T4, Direct Thyroxine 0.94 ng/dL (0.78-2.19)
[2022-03-18 11:44] LABS: Thyroid Stimulating Hormone 4.15 uIU/mL (0.47-4.68)
== END ==
PROVIDERS: PCP Nurse Practitioner; Referring Provider Nurse Practitioner; Visit Provider Nurse Practitioner
DX: E11.9 Type 2 diabetes mellitus without complications (principal); E78.2 Mixed hyperlipidemia; I10 Essential (primary) hypertension; R94.5 Abnormal results of liver function studies; Z79.899 Other long term (current) drug therapy
CPT/HCPCS: 36415; 80053; 80061; 82043; 82570; 83036; 84439; 84443; 84481

== ENCOUNTER → 2022-09-17 10:52 | Outpatient (CLI) | payer MEDICARE, SELFPAY ==
[2022-09-17 12:19] LABS: Hemoglobin A1C% w Est Avg Glu 6.8 % (4.0-6.0)
[2022-09-17 12:23] LABS: Alanine Aminotransferase 35 IU/L (<35); Albumin 4.6 g/dL (3.5-5.0); Albumin Globulin Ratio 1.8 (1.0-2.8); Alkaline Phosphatase 72 U/L (38-126); Aspartate Aminotransferase 32 IU/L (14-36); BUN Creatinine Ratio 17.9 (6-22); Bilirubin Total 0.6 mg/dL (0.2-1.3); Blood Urea Nitrogen 14 mg/dL (7-17); Calcium 9.5 mg/dL (8.4-10.2); Carbon Dioxide 25 mmol/L (22-32); Chloride 101 mmol/L (98-107); Cholesterol 120 mg/dL (140-199); Estimated Glomerular Filt Rate > 60 mL/min (>60); Globulin 2.6 g/dL (1.7-4.1); Glucose 135 mg/dL (80-110); HDL Cholesterol 51 mg/dL (40-60); HEMOLYSIS < 15 (0-50); LDL Cholesterol Calculated 32 mg/dL (<100); Potassium 4.7 mmol/L (3.4-5.1); Sodium 138 mmol/L (137-145); Total Protein 7.2 g/dL (6.3-8.2); Triglycerides 184 mg/dL (35-150)
[2022-09-17 17:57] LABS: Creatinine Urine Random 155.2 mg/dL
[2022-09-17 17:58] LABS: Microalbumin Urine Random 1.4 mg/dL (0-1.6)
== END ==
PROVIDERS: PCP Nurse Practitioner; Referring Provider Nurse Practitioner; Visit Provider Nurse Practitioner
DX: E11.9 Type 2 diabetes mellitus without complications (principal); E78.1 Pure hyperglyceridemia; E78.2 Mixed hyperlipidemia; I10 Essential (primary) hypertension
CPT/HCPCS: 36415; 80053; 80061; 82043; 82570; 83036

== ENCOUNTER → 2022-09-28 14:14 | Outpatient (CLI) | payer MEDICARE, SELFPAY ==
--- NOTE | 2022-09-28 14:16 | DI.MG.S_ITS ---
BILATERAL DIGITAL SCREENING MAMMOGRAM 3D/2D WITH CAD: 09/28/2022 CLINICAL: Routine screening. Comparison is made to exams dated: 09/23/2021 mammogram, 08/22/2020 mammogram, and 08/09/2019 mammogram - [facility]. There are scattered areas of fibroglandular density in both breasts (category b / 25%-50% glandular tissue). Current study was also evaluated with a Computer Aided Detection (CAD) system. No significant masses, calcifications, or other findings are seen in either breast. There has been no significant interval change. IMPRESSION: NEGATIVE There is no mammographic evidence of malignancy. A 1 year screening mammogram is recommended. Based on the Tyrer Cuzick model (a risk assessment model) the patient's lifetime risk is 2.7% and her 10 year risk is 0.0%. According to the ACR, ACS, and NCCN guidelines, an annual breast MRI exam along with mammogram is recommended if the patient's lifetime risk is 20% or greater. This exam was interpreted at Station ID: [id number]. NOTE: For mammograms, a report in lay terms will be sent to the patient. Approximately 15% of breast malignancies will not be visualized mammographically. In the management of a palpable breast mass, a negative mammogram must not discourage biopsy of a clinically suspicious lesion. Electronically Signed By: Carlin phillips/john:09/28/2022 18:59:44 letter sent: Normal Exam ACR BI-RADS Category 1: Negative 3341F
== END ==
PROVIDERS: PCP Nurse Practitioner; Referring Provider Nurse Practitioner; Visit Provider Nurse Practitioner
DX: Z12.31 Encounter for screening mammogram for malignant neoplasm of breast (principal)
CPT/HCPCS: 77063; 77067

== ENCOUNTER → 2022-12-29 13:40 | Outpatient (CLI) | payer MEDICARE, SELFPAY ==
--- NOTE | 2022-12-29 13:42 | DI.RAD.S_ITS ---
PROCEDURE: XR LUMBAR SPINE MIN 4V INDICATIONS: low back pain TECHNIQUE: 5 views of the lumbar spine were acquired, including bilateral oblique views. COMPARISON: [facility], , XR LUMBAR SPINE 2-3V, 07/21/2020, 15:05. FINDINGS: Bones: 5 nonrib-bearing vertebrae are present. There is normal bony alignment. No vertebral body compression fractures. No suspicious bony lesions. Convex right lumbar scoliosis present. Diffuse disc space narrowing and anterior osteophytes present with sclerotic facet joints. Grade 1 anterior spondylolisthesis at L4-5 Soft tissues: Overlying bowel gas pattern is normal. No suspicious soft tissue calcifications. Surgical clips in the right upper quadrant Oblique images: No pars defects. IMPRESSION: Degenerative disc disease and arthropathy associated with lumbar dextroscoliosis Approved by: Matt Lawson M.D. on 12/29/2022 at 17:26
== END ==
PROVIDERS: PCP Nurse Practitioner; Referring Provider Anesthesiology; Visit Provider Anesthesiology
DX: M51.16 Intervertebral disc disorders with radiculopathy, lumbar region (principal); M47.26 Other spondylosis with radiculopathy, lumbar region; M43.16 Spondylolisthesis, lumbar region; M41.9 Scoliosis, unspecified; M79.604 Pain in right leg; M54.9 Dorsalgia, unspecified
CPT/HCPCS: 72110; 99214

== ENCOUNTER → 2023-01-05 18:32 | Outpatient (CLI) | payer MEDICARE, SELFPAY ==
--- NOTE | 2023-01-05 18:33 | DI.MRI.S_ITS ---
PROCEDURE: MR LUMBAR SPINE WO CON INDICATIONS: Lumbar radiculopathy TECHNIQUE: Noncontrast sagittal T1 spin echo and T2 fast echo, sagittal STIR, and T2 fast spin echo through the lumbar spine. In cases with scoliosis, additional coronal T2 fast spin echo may be performed. COMPARISON: [facility], MR, MR LUMBAR SPINE WO CON, 08/27/2020, 17:57. [facility], CT, CT ABDOMEN WO/W CON, 07/15/2021, 8:56. FINDINGS: Image quality: Excellent. Alignment and Curvature: There is mild S shaped scoliotic curvature. Minimal retrolisthesis can be seen at L1-L2 and L2-L3. Mild grade 1 anterolisthesis is seen at the L4-L5 level, without associated pars defects. Minimal retrolisthesis is seen at L5-S1. Bone Marrow: Marrow is of normal overall signal. No acute vertebral body compression fractures. Spinal Cord: Conus medullaris terminates at the L1 level. Visualized cord demonstrates normal signal and size. Paraspinous Soft Tissues: No paravertebral masses. T11-T12: Moderate loss of disc height is seen. Loss of disc signal is seen. At least moderate disc bulge is seen, which is eccentric the right. There is a superimposed central disc protrusion. Mild to moderate facet hypertrophy is seen. There is moderate to severe right-sided neural foraminal narrowing, with a degree of compression upon the right T11 nerve. Moderate left-sided neural narrowing is seen. Moderate central canal narrowing is seen, with mild mass effect upon the ventral spinal cord. When comparison is made with the prior images, these findings are similar. T12-L1: The disc height is well-preserved. Loss of disc signal is seen at this level. Moderate disc bulge is seen, which is eccentric to the right. There is a superimposed central disc protrusion. Moderate facet joint hypertrophy is seen. Moderate bilateral neural foraminal narrowing is seen. Minimal central canal narrowing is seen. These imaging findings have progressed compared to the prior study. L1-L2: At least moderate loss of disc height and disc signal can be seen. Reactive marrow endplate changes are seen, which are hyperintense on T1-weighted and T2-weighted imaging and most consistent with fatty metaplasia (Modic type II changes). Bridging endplate osteophytes are seen. Moderate generalized disc bulge is seen. There is a superimposed central disc protrusion. Moderate facet joint hypertrophy is seen. There is at least moderate left-sided and zaxh-zo-ivdfqgzd right-sided neural foraminal narrowing. Moderate central canal narrowing is seen. The degree of central canal narrowing is mildly progressed compared to 2020. L2-L3: Moderate loss of disc height is seen. Loss of disc signal is seen. Bridging Moderate generalized disc bulge is seen. There is a superimposed central disc protrusion. Moderate facet joint hypertrophy is seen. There is at least moderate left-sided and fchp-kd-vqigrcoy right-sided neural foraminal narrowing. Moderate central canal narrowing is seen. The degree of central canal narrowing is worse than in 2020. L3-L4: The disc height is well-preserved. Loss of disc signal is seen at this level. Moderate disc bulge is seen, which is eccentric to the left. There is a central disc protrusion, with superior migration of the disc material. Moderate to prominent facet hypertrophy is seen. Associated hypertrophy of the ligamentum flavum can be seen. There is at least moderate bilateral neural foraminal narrowing seen. Moderate to severe central canal narrowing is seen, as on series 5, image 22. There is mild progression of degenerative change compared to the prior MRI. L4-L5: Ybzd-hy-gsnkraxc loss of disc height and disc signal can be seen. Moderate disc bulge is seen, which is eccentric to the left. There is a central disc protrusion. Moderate to prominent facet hypertrophy is seen. Associated hypertrophy of the ligamentum flavum can be seen. There is moderate to severe left-sided neural foraminal narrowing, with a degree of compression upon the exiting left L4 nerve root. There is moderate right-sided neural foraminal narrowing. Severe central canal narrowing is seen, as on series 6, image 11. These imaging findings have progressed compared to the prior study. L5-S1: Moderate loss of disc height is seen. Loss of disc signal is seen. Reactive marrow endplate changes are seen, which are hyperintense on T1-weighted and T2-weighted imaging and most consistent with fatty metaplasia (Modic type II changes). Moderate disc bulge is seen, which is eccentric to the right. There is a focal annular fissure seen posteriorly. Moderate facet hypertrophy is seen on the right and there is apbg-mn-wfnikpix facet hypertrophy on the left. Moderate bilateral neural foraminal narrowing is seen. Moderate central canal narrowing is seen. When comparison is made with the prior images, these findings are similar. IMPRESSION: Multiple levels of significant lumbar spine degenerative change can be seen, which have progressed at several levels compared to 2020. Dictated by: Krystian Gray M.D. on 01/06/2023 at 9:52 Approved by: Krystian Gray M.D. on 01/06/2023 at 10:08
== END ==
PROVIDERS: PCP Nurse Practitioner; Referring Provider Anesthesiology; Visit Provider Anesthesiology
DX: R27.0 Ataxia, unspecified; M47.26 Other spondylosis with radiculopathy, lumbar region; M47.27 Other spondylosis with radiculopathy, lumbosacral region
CPT/HCPCS: 72148

== ENCOUNTER 2023-02-02 12:46 | Outpatient (CLI) | payer MEDICARE, SELFPAY ==
--- NOTE | 2023-02-02 12:47 | DI.RAD.S_ITS ---
PROCEDURE: PAIN L/SI FACET INJ/BLK 1STL INDICATIONS: SPONDYLOSIS COMPARISON: None. FINDINGS: Fluoroscopic spot filming was performed to verify placement of spinal needles at the right-side of L3, L4 and L5 level(s), as labeled on the films. Appropriate location(s) of the needle tip(s) was confirmed by injection of iodinated contrast. IMPRESSION: Fluoro guidance was provided intraoperatively for right L3, L4, and L5 medial branch block performed by the ordering physician. Dictated by: Kyle Mcdaniels M.D. on 02/02/2023 at 15:39 Approved by: Kyle Mcdaniels M.D. on 02/02/2023 at 15:44
[2023-02-02 12:50] VITALS: BP 169/81; PULSE 92; RESP 18; TEMP 36.9; O2SAT 99
[2023-02-02 13:05] VITALS: BP 178/77; PULSE 96; RESP 20; O2SAT 99
[2023-02-02] MEDS: IOPAMIDOL 15 ML VIAL 3 ML INJ (13:08)
[2023-02-02] MEDS: BUPIVACAINE 0.5% (PF) 10 ML VIAL 5 ML INJ (13:08)
[2023-02-02 13:10] VITALS: BP 157/68; PULSE 92; RESP 20; O2SAT 98
[2023-02-02 13:14] VITALS: BP 147/68; PULSE 89; RESP 18; O2SAT 97
[2023-02-02 13:17] VITALS: BP 166/72; PULSE 83; RESP 20; O2SAT 98
--- NOTE | 2023-02-02 13:21 | P.PCN_ITS ---
Date/Time/Diagnoses Date of procedure: 02/02/23 Time of procedure: 13:00 Procedure Notes Physician: Timo Garcia Total Fluoroscopy time (seconds): 13 Total sedation minutes: 0 Procedure in detail & Post-procedure care: Right L3, 4, 5 Lumbar Medial Branch Blocks Indications: Nola is presenting for treatment of lumbar spondylosis with low back pain. Preoperative diagnosis: Right lumbar spondylosis Postoperative diagnosis: Same Pre-procedure History: F Patient demonstrates today moderate to severe non- radicular back pain without neurologic deficit aggravated by hyperextension yes Back pain greater than leg pain? yes Patient today has tenderness over the suspected joint(s) yes History of post-traumatic injury? no Hypertrophic arthropathy yes Back pain associated with suspected motion segment instability, hypermobility or pseudoarthrosis no Pre-testing pain score (VAS): 5/10 Focused Examination: Ax3 Mood and affect are normal Vital Signs: VSS Consent: Following review of allergies and potential side effects/complications, including, but not necessarily limited to, infection, allergic reaction, local tissue breakdown, stroke, temporary or permanent nerve injury, paralysis, and possible , the patient indicated that they understood and agreed to proceed.? An informed consent document was signed by the patient, witnessed by a nurse and placed in the patient's chart.? Additionally, other treatment options including medications and physical therapy were reviewed with the patient. All questions were answered. Site was then marked. Anesthesia: Local Position: Prone Monitoring: NIBP, Pulse oximetry, 3 lead EKG Needle used: 22G 3.5 inch spinal needle Contrast: Isovue 300M Injectate: 0.5% bupivacaine 1 mL per site Procedure: The patient was brought into the procedure room and positioned into the prone position. Skin was prepped with a Chloraprep solution, allowed to air dry, and then draped in sterile fashion.? The right L4-5 and L5-S1 facet joints were visually identified with fluoroscopy. Lidocaine 1% was used to anesthetize the skin over each target destination with a 25ga needle. A 25 ga, 3.5 inch spinal needle was advanced to the location of the medial branch at the junction of the superior articular process and the transverse process at L3,4,5 using intermittent fluoroscopy in the AP view. Isovue 300M contrast 0.2ml was injected at each level outlining the medial borders for each level and the base of the SAP of the sacrum in the AP and lateral views. There was no evidence of vascular or intrathecal uptake. The above injectate was slowly injected at each target destination. At the end of the procedure the needles were withdrawn and Band- Aids were applied for a dressing. Post Procedure: Patient was taken to the recovery and monitored. The patient was provided a Pain Log to continue to record the patient's response to the target- specific procedure prior to the patient's follow-up visit with the referring physician. Patient was stable upon discharge. Detailed post procedure instructions were provided. Patient was asked to call in the event of worsening pain, fever, weakness, numbness or bladder or bowel incontinence. Postoperatively, today patient demonstrates the following changes with hyperextension and with tenderness over the suspected joint(s). Provacative testing using the Arellano's facet loading test Right side Left side Directly before the block ?VAS (0-10) = 5/10 VAS (0-10) = 5/10 5 minutes after the block VAS (0-10) = 0/10 VAS (0-10) = 0/10 Percentage relief obtained with this diagnostic block 100% 100% Any improved physical functioning directly after the blocks? Range of motion Based on the medial branches blocked today, if the patient [facility], the treatment should result in the denervation of the right L4-5 and L5-S1 facet joint nerves. We would expect to denervate a total of 2 facets during the radiofrequency ablation.
== END 2023-02-02 13:22 | disposition home or self-care (01) ==
LOC: RAD 12:47
PROVIDERS: PCP Nurse Practitioner; Referring Provider Anesthesiology; Visit Provider Anesthesiology
DX: M47.816 Spondylosis without myelopathy or radiculopathy, lumbar region (principal)
CPT/HCPCS: 64493; 64494

== ENCOUNTER 2023-02-16 08:52 | Outpatient (CLI) | payer MEDICARE, SELFPAY ==
--- NOTE | 2023-02-16 08:53 | DI.RAD.S_ITS ---
PROCEDURE: PAIN L/SI FACET INJ/BLK 1STL INDICATIONS: SPONDYLOSIS COMPARISON: [facility], , PAIN L/SI FACET INJ/BLK 1STL, 02/02/2023, 13:07. FINDINGS: Fluoroscopic spot filming was performed to verify placement of spinal needles at the L3, L4 and L5 level(s), as labeled on the films. Appropriate location(s) of the needle tip(s) was confirmed by injection of iodinated contrast. IMPRESSION: Fluoroscopic guidance Approved by: Matt Lawson M.D. on 02/16/2023 at 13:22
[2023-02-16 09:15] VITALS: BP 157/75; PULSE 86; RESP 18; TEMP 36.6; O2SAT 99
[2023-02-16 09:24] VITALS: BP 183/74; PULSE 89; RESP 19; O2SAT 99
[2023-02-16] MEDS: LIDOCAINE 2% INJ MDV 20ML 20 ML INJ (09:26)
[2023-02-16] MEDS: IOPAMIDOL 15 ML VIAL 3 ML INJ (09:27)
[2023-02-16 09:29] VITALS: BP 159/70; PULSE 85; RESP 19; O2SAT 99
[2023-02-16 09:35] VITALS: BP 144/76; PULSE 87; RESP 20; O2SAT 97
[2023-02-16 09:40] VITALS: BP 166/74; PULSE 89; RESP 16; O2SAT 98
--- NOTE | 2023-02-16 09:47 | P.PCN_ITS ---
Date/Time/Diagnoses Date of procedure: 02/16/23 Time of procedure: 09:30 Procedure Notes Physician: Timo Garcia Total Fluoroscopy time (seconds): 13 Total sedation minutes: 0 Procedure in detail & Post-procedure care: Right L3, 4, 5 Lumbar Medial Branch Blocks Indications: Nola is presenting for treatment of lumbar spondylosis with low back pain. Preoperative diagnosis: Right lumbar spondylosis Postoperative diagnosis: Same Pre-procedure History: Patient demonstrates today moderate to severe non- radicular back pain without neurologic deficit aggravated by hyperextension yes Back pain greater than leg pain? yes Patient today has tenderness over the suspected joint(s) yes History of post-traumatic injury? no Hypertrophic arthropathy yes Back pain associated with suspected motion segment instability, hypermobility or pseudoarthrosis no Pre-testing pain score (VAS): 5/10 Focused Examination: Ax3 Mood and affect are normal Vital Signs: VSS Consent: Following review of allergies and potential side effects/complications, including, but not necessarily limited to, infection, allergic reaction, local tissue breakdown, stroke, temporary or permanent nerve injury, paralysis, and possible , the patient indicated that they understood and agreed to proceed.? An informed consent document was signed by the patient, witnessed by a nurse and placed in the patient's chart.? Additionally, other treatment options including medications and physical therapy were reviewed with the patient. All questions were answered. Site was then marked. Anesthesia: Local Position: Prone Monitoring: NIBP, Pulse oximetry, 3 lead EKG Needle used: 25G 3.5 inch spinal needle Contrast: Isovue 300M Injectate: 2% Lidocaine 1 mL per site Procedure: The patient was brought into the procedure room and positioned into the prone position. Skin was prepped with a Chloraprep solution, allowed to air dry, and then draped in sterile fashion.? The right L4-5 and L5-S1 facet joints were visually identified with fluoroscopy. Lidocaine 1% was used to anesthetize the skin over each target destination with a 25ga needle. A 25 ga, 3.5 inch spinal needle was advanced to the location of the medial branch at the junction of the superior articular process and the transverse process at L3, 4 using intermittent fluoroscopy in the AP view. Isovue 300M contrast 0.2ml was injected at each level outlining the medial borders for each level and the base of the SAP of the sacrum in the AP and lateral views. There was no evidence of vascular or intrathecal uptake. The above injectate was slowly injected at each target destination. Post Procedure: Patient was taken to the recovery and monitored. The patient was provided a Pain Log to continue to record the patient's response to the target- specific procedure prior to the patient's follow-up visit with the referring physician. Patient was stable upon discharge. Detailed post procedure instructions were provided. Patient was asked to call in the event of worsening pain, fever, weakness, numbness or bladder or bowel incontinence. Postoperatively, today patient demonstrates the following changes with hyp erextension and with tenderness over the suspected joint(s). Provacative testing using the Arellano's facet loading test Right side Left side Directly before the block ?VAS (0-10) = 5/10 VAS (0-10) = 5/10 5 minutes after the block VAS (0-10) = 0/10 VAS (0-10) = 0/10 Percentage relief obtained with this diagnostic block 100 % 100 % Any improved physical functioning directly after the blocks? Range of motion Based on the medial branches blocked today, if the patient meets insurance criteria for radiofrequency, the treatment should result in the denervation of the right L4-5 and L5-S1 facet joint nerves. We would expect to denervate a total of 2 facets during the radiofrequency ablation.
== END 2023-02-16 09:45 | disposition home or self-care (01) ==
LOC: RAD 08:53
PROVIDERS: PCP Nurse Practitioner; Referring Provider Anesthesiology; Visit Provider Anesthesiology
DX: M47.816 Spondylosis without myelopathy or radiculopathy, lumbar region (principal)
CPT/HCPCS: 64493; 64494

== ENCOUNTER 2023-03-02 10:26 | Outpatient (CLI) | payer MEDICARE, SELFPAY ==
--- NOTE | 2023-03-02 10:27 | DI.RAD.S_ITS ---
PROCEDURE: PAIN L/S MED/LAT N RFA INDICATIONS: Right L3, 4, 5 RFA COMPARISON: [facility], CR, XR LUMBAR SPINE MIN 4V, 12/29/2022, 13:39. FINDINGS: Fluoroscopic spot filming was performed to verify placement of spinal needles at the right L3, L4, and L5 levels, as labeled on the films. Appropriate locations of the needle tips was confirmed by injection of iodinated contrast. IMPRESSION: Intraprocedural examination demonstrates appropriate needle position. Approved by: Roshan Perry M.D. on 03/02/2023 at 13:20
[2023-03-02 10:43] VITALS: BP 165/77; PULSE 94; RESP 16; TEMP 36.6; O2SAT 98
[2023-03-02 10:57] VITALS: BP 190/86; PULSE 96; RESP 21; O2SAT 95
[2023-03-02] MEDS: DEXAMETHASONE 10 MG/ML VIAL INJ (11:01)
[2023-03-02] MEDS: LIDOCAINE 2% INJ MDV 20ML 5 ML INJ (11:01)
[2023-03-02 11:02] VITALS: BP 152/67; PULSE 91; RESP 20; O2SAT 95
[2023-03-02] MEDS: BUPIVACAINE 0.5% (PF) 10 ML VIAL 5 ML INJ (11:02)
[2023-03-02 11:07] VITALS: BP 140/70; PULSE 91; RESP 19; O2SAT 93
[2023-03-02 11:12] VITALS: BP 149/73; PULSE 87; RESP 15; O2SAT 93
--- NOTE | 2023-03-02 11:24 | P.PCN_ITS ---
Date/Time/Diagnoses Date of procedure: 03/02/23 Time of procedure: 11:00 Procedure Notes Physician: Timo Garcia Total Fluoroscopy time (seconds): 16 Total sedation minutes: 0 Procedure in detail & Post-procedure care: Right L3, 4, 5 Lumbar Medial Branch Radio Frequency Ablation Indications: Nola presents for treatment of lumbar spondylosis with low back pain. Preoperative diagnosis: Right lumbar spondylosis Postoperative diagnosis: Same Pre-procedure History: Patient demonstrates today moderate to severe non-radicular low back pain without neurologic deficit aggravated by hyperextension yes Back pain greater than leg pain? yes Patient today has tenderness over the suspected joint(s) yes History of post-traumatic injury? no Hypertrophic arthropathy yes Back pain associated with suspected motion segment instability, hypermobility or pseudoarthrosis no Focused Examination: Ax3 Mood and affect are normal Vital Signs: VSS Consent: Following review of allergies and potential side effects/complications, including, but not necessarily limited to, infection, allergic reaction, local tissue breakdown, stroke, temporary or permanent nerve injury, paralysis, and possible , the patient indicated that they understood and agreed to proceed.? An informed consent document was signed by the patient, witnessed by a nurse and placed in the patient's chart.? Additionally, other treatment options including medications and physical therapy were reviewed with the patient. All questions were answered. Site was then marked. Position: Prone Monitoring: NIBP, Pulse oximetry, 3 lead EKG Needle used: 18 guage, 100 mm, 10 mm active tip Anesthesia: Local Procedure: The patient was brought into the procedure room and positioned into the prone position. Skin was prepped with a Chloraprep solution, allowed to air dry, and then draped in sterile fashion.? The right L4-5 and L5-S1 facet joints were visually identified with fluoroscopy. Lidocaine 1% was used to anesthetize the skin over each target destination with a 25ga needle. An 18 ga, 100 mm RFA needle with a 10 mm active tip was advanced to the location of the medial branch at the junction of the superior articular process and the transverse process at L3,4,5 using intermittent fluoroscopy in the oblique view with caudal tilt. AP and lateral radiographs were taken to confirm proper needle placement. No paresthesias were noted. The stylet was removed and the radiofrequency probe was inserted through the cannula. Each level was individually tested.? Motor stimulation up to 2V elicited multifidus twitching in the lumbar spine. There was no motor stimulation in the lower extremities. After negative aspiration, 1ml of 2% lidocaine was injected at each of the levels and radiofrequency denervation carried out using 80 degrees Celsius for 90 seconds. The needles were then rotated 90 degrees and a second ablation was performed at 80 degrees Celsius for 90 seconds. After ablation, a mixture of 20 mg dexamethasone with 0.5% bupivacaine 4 mL was injected in equal amounts among the sites (1 mL per site). At the end of the procedure the needles were withdrawn and Band-Aids were applied for a dressing. This procedure is expected to denervate the right L4-5 and L5-S1 facet joints. Post Procedure: Patient was taken to the recovery and monitored. The patient was provided a Pain Log to continue to record the patient's response to the target- specific procedure prior to the patient's follow-up visit with the referring physician. Patient was stable upon discharge. Detailed post procedure instructions were provided. Patient was asked to call in the event of worsening pain, fever, weakness, numbness or bladder or bowel incontinence. Complications: None
[2023-03-02 11:26] VITALS: BP 148/63; PULSE 82; RESP 16; O2SAT 99
== END 2023-03-02 11:28 | disposition home or self-care (01) ==
LOC: RAD 10:27
PROVIDERS: PCP Nurse Practitioner; Referring Provider Anesthesiology; Visit Provider Anesthesiology
DX: M47.816 Spondylosis without myelopathy or radiculopathy, lumbar region (principal)
CPT/HCPCS: 64635; 64636; 82962; J1100

== ENCOUNTER → 2023-03-22 10:28 | Outpatient (CLI) | payer MEDICARE, SELFPAY ==
[2023-03-22 12:15] LABS: Alanine Aminotransferase 37 IU/L (<35); Albumin 4.2 g/dL (3.5-5.0); Albumin Globulin Ratio 1.8 (1.0-2.8); Alkaline Phosphatase 74 U/L (38-126); Aspartate Aminotransferase 28 IU/L (14-36); BUN Creatinine Ratio 18.7 (6-22); Bilirubin Total 0.4 mg/dL (0.2-1.3); Blood Urea Nitrogen 20 mg/dL (7-17); Calcium 9.6 mg/dL (8.4-10.2); Carbon Dioxide 23 mmol/L (22-32); Chloride 101 mmol/L (98-107); Cholesterol 124 mg/dL (140-199); Estimated Glomerular Filt Rate 53 mL/min (>60); Globulin 2.4 g/dL (1.7-4.1); Glucose 137 mg/dL (80-110); HDL Cholesterol 46 mg/dL (40-60); HEMOLYSIS < 15 (0-50); LDL Cholesterol Calculated 33 mg/dL (<100); Potassium 4.8 mmol/L (3.4-5.1); Sodium 135 mmol/L (137-145); Total Protein 6.6 g/dL (6.3-8.2); Triglycerides 227 mg/dL (35-150)
[2023-03-22 12:32] LABS: Free T3, Triiodothyronine Free 3.55 pg/mL (2.77-5.27); Free T4, Direct Thyroxine 1.05 ng/dL (0.78-2.19)
[2023-03-22 12:45] LABS: Thyroid Stimulating Hormone 2.66 uIU/mL (0.47-4.68)
[2023-03-23 06:05] LABS: Labcorp Hemoglobin (Hb) A1c 6.9 % (4.8-5.6)
== END ==
PROVIDERS: PCP Nurse Practitioner; Referring Provider Nurse Practitioner; Visit Provider Nurse Practitioner
DX: E11.9 Type 2 diabetes mellitus without complications (principal); E78.2 Mixed hyperlipidemia; I10 Essential (primary) hypertension; R94.5 Abnormal results of liver function studies
CPT/HCPCS: 36415; 80053; 80061; 83036; 84439; 84443; 84481

== ENCOUNTER 2023-05-06 16:52 | Emergency (ER) | payer MEDICARE, SELFPAY ==
[2023-05-06 17:16] VITALS: BP 145/65; PULSE 100; RESP 20; TEMP 36.5; O2SAT 96; BMI 46.5
== END 2023-05-06 19:47 | disposition left against medical advice (07) ==
PROVIDERS: Emergency Provider Emergency Medicine; PCP Nurse Practitioner
DX: U07.1 COVID-19 (principal)
CPT/HCPCS: 99281

== ENCOUNTER → 2023-08-01 11:15 | Outpatient (CLI) | payer MEDICARE, SELFPAY ==
[2023-08-01 12:00] LABS: Hemoglobin A1C% w Est Avg Glu 6.5 % (4.0-6.0)
[2023-08-01 12:03] LABS: Alanine Aminotransferase 29 IU/L (<35); Albumin 4.3 g/dL (3.5-5.0); Albumin Globulin Ratio 1.4 (1.0-2.8); Alkaline Phosphatase 66 U/L (38-126); Aspartate Aminotransferase 29 IU/L (14-36); BUN Creatinine Ratio 17.4 (6-22); Bilirubin Total 0.6 mg/dL (0.2-1.3); Blood Urea Nitrogen 20 mg/dL (7-17); Calcium 10.1 mg/dL (8.4-10.2); Carbon Dioxide 23 mmol/L (22-32); Chloride 102 mmol/L (98-107); Cholesterol 116 mg/dL (140-199); Estimated Glomerular Filt Rate 49 mL/min (>60); Globulin 3.1 g/dL (1.7-4.1); Glucose 129 mg/dL (80-110); HDL Cholesterol 42 mg/dL (40-60); HEMOLYSIS < 15 (0-50); LDL Cholesterol Calculated 35 mg/dL (<100); Potassium 4.5 mmol/L (3.4-5.1); Sodium 136 mmol/L (137-145); Total Protein 7.4 g/dL (6.3-8.2); Triglycerides 193 mg/dL (35-150)
[2023-08-01 12:23] LABS: Free T3, Triiodothyronine Free 3.16 pg/mL (2.77-5.27); Free T4, Direct Thyroxine 1.11 ng/dL (0.78-2.19)
[2023-08-01 12:32] LABS: Creatinine Urine Random 266.4 mg/dL
[2023-08-01 12:37] LABS: Microalbumi Creatinin Ratio Ur 17.2 ug/mg CR (<30); Microalbumin Urine Random 4.6 mg/dL (0-1.6)
== END ==
PROVIDERS: PCP Nurse Practitioner; Referring Provider Nurse Practitioner; Visit Provider Nurse Practitioner
DX: R94.5 Abnormal results of liver function studies (principal); E11.9 Type 2 diabetes mellitus without complications; E78.2 Mixed hyperlipidemia; I10 Essential (primary) hypertension
CPT/HCPCS: 36415; 80053; 80061; 82043; 82570; 83036; 84439; 84443; 84481

== ENCOUNTER → 2023-10-13 14:56 | Outpatient (CLI) | payer MEDICARE, SELFPAY ==
--- NOTE | 2023-10-13 | DI.MG.S_ITS ---
BILATERAL DIGITAL SCREENING MAMMOGRAM 3D/2D WITH CAD: 10/13/2023 CLINICAL: Routine screening. Comparison is made to exams dated: 09/28/2022 mammogram, 09/23/2021 mammogram, and 08/22/2020 mammogram - [facility]. Both breasts are almost entirely fatty (category a/<25% glandular tissue). Current study was also evaluated with a Computer Aided Detection (CAD) system. No significant masses, calcifications, or other findings are seen in either breast. There has been no significant interval change. IMPRESSION: NEGATIVE There is no mammographic evidence of malignancy. A 1 year screening mammogram is recommended. Based on the Tyrer Cuzick model (a risk assessment model) the patient's lifetime risk is 1.6% and her 10 year risk is 0.0%. According to the ACR, ACS, and NCCN guidelines, an annual breast MRI exam along with mammogram is recommended if the patient's lifetime risk is 20% or greater. This exam was interpreted at Station ID: [id number]. NOTE: For mammograms, a report in lay terms will be sent to the patient. Approximately 15% of breast malignancies will not be visualized mammographically. In the management of a palpable breast mass, a negative mammogram must not discourage biopsy of a clinically suspicious lesion. Electronically Signed By: Tirso torres/john:10/14/2023 15:51:40 letter sent: Normal Exam ACR BI-RADS Category 1: Negative [id number]
== END ==
PROVIDERS: PCP Nurse Practitioner; Referring Provider Nurse Practitioner; Visit Provider Nurse Practitioner
DX: Z12.31 Encounter for screening mammogram for malignant neoplasm of breast (principal)
CPT/HCPCS: 77063; 77067

== ENCOUNTER → 2023-11-05 10:35 | Outpatient (CLI) | payer MEDICARE, SELFPAY ==
[2023-11-05 11:46] LABS: Alanine Aminotransferase 22 IU/L (<35); Albumin 4.1 g/dL (3.5-5.0); Albumin Globulin Ratio 1.5 (1.0-2.8); Alkaline Phosphatase 70 U/L (38-126); Aspartate Aminotransferase 24 IU/L (14-36); BUN Creatinine Ratio 15.3 (6-22); Bilirubin Total 0.5 mg/dL (0.2-1.3); Blood Urea Nitrogen 19 mg/dL (7-17); Calcium 9.7 mg/dL (8.4-10.2); Carbon Dioxide 26 mmol/L (22-32); Chloride 103 mmol/L (98-107); Estimated Glomerular Filt Rate 45 mL/min (>60); Globulin 2.7 g/dL (1.7-4.1); Glucose 100 mg/dL (80-110); HEMOLYSIS < 15 (0-50); Potassium 4.9 mmol/L (3.4-5.1); Sodium 138 mmol/L (137-145); Total Protein 6.8 g/dL (6.3-8.2)
[2023-11-05 12:03] LABS: Hemoglobin A1C% w Est Avg Glu 5.7 % (4.0-6.0)
== END ==
PROVIDERS: PCP Nurse Practitioner; Referring Provider Nurse Practitioner; Visit Provider Nurse Practitioner
DX: E11.9 Type 2 diabetes mellitus without complications (principal); I10 Essential (primary) hypertension
CPT/HCPCS: 36415; 80053; 83036

== ENCOUNTER → 2023-12-22 | Outpatient (CLI) | payer MEDICARE, SELFPAY ==
--- NOTE | 2023-12-22 14:31 | DI.ECHO.S_ITS ---
[facility] : : [address] : : [place] : : [address] : : Phone: [phone] Echocardiogram Report + + :Name: SHANNA HARVEY Study Date: 12/22/2023 Height: 58 in : :[facility] ReadingLocation: Weight: 183 lb : : Gender: Female BSA: 1.8 m2 : :: 1945 Age: 78 yrs BP: 108/74 mmHg: :Reason For Study: ESSENTIAL HYPERTENSION : :Ordering Physician: RAHEL, : :STANLEY Performed By: Darío Anthony : :Referring: STANLEY MCGINNIS : + + Interpretation Summary TDS - BODY HABITUS The left ventricle is normal in size and wall thickness. The ejection fraction is estimated to be 45-50%. There is anterior wall hypokinesis. The right ventricle is normal size. The right ventricular systolic function is normal. No significant valvular pathology is seen. The IVC is of normal diameter and collapses greater than 50% with a sniff. This suggests a low right atrial pressure of 3 mm Hg. Procedure: A two-dimensional transthoracic echocardiogram with color flow and Doppler was performed. The study quality was technically difficult. A contrast injection of Definity was performed to improve assessment of LV function. There is no prior echocardiogram noted for this patient. The heart rate ranged between 80-90 bpm during the study. The patient was in normal sinus rhythm during the exam. Left Ventricle: The left ventricle is normal in size and wall thickness. There is no thrombus. The ejection fraction is estimated to be 45-50%. There is anterior wall hypokinesis. MV E/A: 0.72 Med Peak E' Willy: 4.9 cm/sec E/E' med: 15.3. Right Ventricle: The right ventricle is normal size. The right ventricular systolic function is normal. Atria: The left atrial size is normal. The right atrium is borderline dilated. The interatrial septum grossly appears intact with no obvious evidence for an atrial septal defect. Mitral Valve: The mitral valve is grossly normal. There is no mitral valve stenosis. There is trace mitral regurgitation. Aortic Valve: The aortic valve is grossly normal. The aortic valve is trileaflet. The aortic valve is slightly calcified. There is no aortic valve stenosis. No aortic regurgitation is present. Tricuspid Valve: The tricuspid valve is not well visualized, but is grossly normal. There has been no significant change since the previous study. There is trace tricuspid regurgitation. The right ventricular systolic pressure is estimated to be at least 28 mmHg based on an estimated right atrial pressure of 3 mm Hg. Pulmonic Valve: The pulmonic valve is not well visualized. There is no pulmonic valvular stenosis. There is no pulmonic valvular regurgitation. Great Vessels: The aortic root is normal size. The dimensions of the ascending aorta are normal. Aortic arch is not well-visualized. The IVC is of normal diameter and collapses greater than 50% with a sniff. This suggests a low right atrial pressure of 3 mm Hg. Pericardium/ Pleura There is no pericardial effusion. There is no pleural effusion. MMode/2D Measurements & Calculations LVIDd: 4.4 cm LVOT diam: 1.8 cm LVIDs: 3.0 cm Ao root diam: 2.6 cm FS: 30.7 % asc Aorta Diam: 2.8 cm IVSd: 1.1 cm Ao Arch Diam (Prox Trans): 2.7 cm LVPWd: 0.85 cm LV caceres. diameter/BSA (cm/m^2): 2.5 LV sys. diameter/BSA (cm/m^2): 1.7 LA A2 area: 13.4 cm2 RA long axis: 4.4 cm LA A4 area: 15.9 cm2 RA area: 13.4 cm2 LA length (vol): 4.9 cm RA vol: 34.7 ml LA vol: 36.7 ml RA : 19.8 ml/m2 LA vol index: 20.9 ml/m2 IVC diam: 1.9 cm RVD1 (basal): 3.4 cm RVD2 (mid): 2.8 cm TAPSE: 1.9 cm Doppler Measurements & Calculations Ao V2 max: 151.9 cm/sec LVOT Max Willy: 89.6 cm/sec Ao V2 mean: 109.0 cm/sec LV V1 max P.2 mmHg Ao max P.2 mmHg LV V1 VTI: 20.9 cm Ao mean P.2 mmHg JUNIOR(I,D): 1.9 cm2 Ao V2 VTI: 28.2 cm JUNIOR(V,D): 1.5 cm2 sev ratio: 0.74 JUNIOR indexed to BSA (cm^2/m^2): 1.1 MV E max willy: 74.9 cm/sec TR max willy: 253.4 cm/sec MV A max willy: 104.5 cm/sec TR max P.7 mmHg MV E/A: 0.72 PA V2 max: 124.8 cm/sec Med Peak E' Willy: 4.9 cm/sec PA V2 mean: 79.0 cm/sec E/E' med: 15.3 PA mean P.9 mmHg Lat Peak E' Willy: 5.7 cm/sec PA pr(Accel): 48.2 mmHg E/E' lat: 13.1 E/e' average: 14.2 MV dec time: 0.17 sec SV(LVOT): 53.5 ml Reading Physician:03:51 PM
== END ==
LOC: ECHO 14:29
PROVIDERS: PCP Nurse Practitioner; Referring Provider Nurse Practitioner; Visit Provider Nurse Practitioner
DX: I10 Essential (primary) hypertension (principal)
CPT/HCPCS: C8929; Q9957

== ENCOUNTER → 2024-01-19 12:49 | Outpatient (CLI) | payer MEDICARE, SELFPAY ==
[2024-01-19 14:24] LABS: Hematocrit 33.9 % (36-46); Hemoglobin 10.8 g/dL (12.0-16.0)
[2024-01-19 18:52] LABS: BUN Creatinine Ratio 22.5 (6-22); Blood Urea Nitrogen 34 mg/dL (7-17); Carbon Dioxide 20 mmol/L (22-32); Chloride 104 mmol/L (98-107); Estimated Glomerular Filt Rate 35 mL/min (>60); Glucose 100 mg/dL (80-110); HEMOLYSIS < 15 (0-50); Potassium 5.1 mmol/L (3.4-5.1); Sodium 136 mmol/L (137-145)
[2024-01-19 20:52] LABS: Protein (Total) Urine Random < 5 mg/dL (0-12)
[2024-01-19 21:06] LABS: Creatinine Urine Random 127.84 mg/dL; Protein Creatinine Ratio Urine 0.03 GRAM/24H
== END ==
PROVIDERS: PCP Nurse Practitioner; Referring Provider Student in an Organized Health Care Education/Training Program; Visit Provider Student in an Organized Health Care Education/Training Program
DX: N05.9 Unspecified nephritic syndrome with unspecified morphologic changes (principal); D63.1 Anemia in chronic kidney disease; D70.9 Neutropenia, unspecified; R80.9 Proteinuria, unspecified
CPT/HCPCS: 36415; 80048; 82570; 84156; 85014; 85018

== ENCOUNTER → 2024-02-03 11:15 | Outpatient (CLI) | payer MEDICARE, SELFPAY ==
[2024-02-03 13:40] LABS: Alanine Aminotransferase 17 IU/L (<35); Albumin 4.5 g/dL (3.5-5.0); Alkaline Phosphatase 79 U/L (38-126); Aspartate Aminotransferase 23 IU/L (14-36); BUN Creatinine Ratio 21.5 (6-22); Bilirubin Total 0.6 mg/dL (0.2-1.3); Blood Urea Nitrogen 32 mg/dL (7-17); Calcium 9.8 mg/dL (8.4-10.2); Carbon Dioxide 22 mmol/L (22-32); Chloride 102 mmol/L (98-107); Cholesterol 97 mg/dL (140-199); Estimated Glomerular Filt Rate 36 mL/min (>60); Globulin 2.3 g/dL (1.7-4.1); Glucose 115 mg/dL (80-110); HDL Cholesterol 44 mg/dL (40-60); HEMOLYSIS < 15 (0-50); LDL Cholesterol Calculated 11 mg/dL (<100); Potassium 5.1 mmol/L (3.4-5.1); Sodium 134 mmol/L (137-145); Total Protein 6.8 g/dL (6.3-8.2); Triglycerides 212 mg/dL (35-150)
[2024-02-03 13:55] LABS: Free T3, Triiodothyronine Free 2.57 pg/mL (2.77-5.27); Free T4, Direct Thyroxine 0.97 ng/dL (0.78-2.19)
[2024-02-03 14:09] LABS: Thyroid Stimulating Hormone 3.31 uIU/mL (0.47-4.68)
[2024-02-03 15:22] LABS: Creatinine Urine Random 200.07 mg/dL
[2024-02-03 15:26] LABS: Microalbumin Urine Random 1.5 mg/dL (0-1.6)
== END ==
PROVIDERS: PCP Nurse Practitioner; Referring Provider Nurse Practitioner; Visit Provider Nurse Practitioner
DX: E11.22 Type 2 diabetes mellitus with diabetic chronic kidney disease (principal); N18.30 Chronic kidney disease, stage 3 unspecified; E66.01 Morbid (severe) obesity due to excess calories; E78.2 Mixed hyperlipidemia; E11.9 Type 2 diabetes mellitus without complications; I10 Essential (primary) hypertension; E78.1 Pure hyperglyceridemia
CPT/HCPCS: 36415; 80053; 80061; 82043; 82570; 84439; 84443; 84481

== ENCOUNTER → 2024-02-16 13:08 | Outpatient (CLI) | payer MEDICARE, SELFPAY ==
--- NOTE | 2024-02-16 13:10 | DI.US.S_ITS ---
PROCEDURE: US RENAL COMPLETE INDICATIONS: proteinurea TECHNIQUE: Real-time scanning was performed of the kidneys and bladder, with image documentation. COMPARISON: None. FINDINGS: Kidneys: Kidneys are normal in size. Right kidney measures 10.2 cm long; left kidney measures 8.9 cm long. Right renal cortical thickness is 0.8 cm; left renal cortical thickness is 0.8 cm. No hydronephrosis or nephrolithiasis. No suspicious solid mass lesions. Bladder: Pre-void bladder volume is 29 mL. Post-void residual is less than 1 mL. Pre-void images demonstrate no intraluminal masses or stones. On pre-void images, left ureteral jet is noted with color Doppler interrogation. (Of note, ureteral jets may not be detectable in up to 25% of cases due to insufficient differences in specific gravity between ureteral and bladder urine). Miscellaneous: No free pelvic fluid. IMPRESSION: 1. Mild bilateral renal cortical thinning. No renal stones or hydronephrosis. No gross solid appearing renal lesion. 2. Normal appearing partially distended urinary bladder. Dictated by: Kyle Mcdaniels M.D. on 02/16/2024 at 15:14 Approved by: Kyle Mcdaniels M.D. on 02/16/2024 at 15:15
[2024-02-16 16:26] LABS: Hematocrit 32.6 % (36-46); Hemoglobin 10.9 g/dL (12.0-16.0)
[2024-02-16 16:46] LABS: BUN Creatinine Ratio 14.7 (6-22); Blood Urea Nitrogen 23 mg/dL (7-17); Calcium 9.5 mg/dL (8.4-10.2); Carbon Dioxide 28 mmol/L (22-32); Chloride 98 mmol/L (98-107); Estimated Glomerular Filt Rate 34 mL/min (>60); Glucose 128 mg/dL (80-110); HEMOLYSIS < 15 (0-50); Phosphorous 4.1 mg/dL (2.8-4.1); Potassium 4.5 mmol/L (3.4-5.1); Sodium 133 mmol/L (137-145)
[2024-02-16 17:53] LABS: Appearance Urine UA CLEAR; Bilirubin Urine UA NEGATIVE (NEGATIVE); Color Urine UA YELLOW; Glucose Urine UA NEGATIVE (Negative); Ketones Urine UA NEGATIVE (NEGATIVE); Leukocyte Esterase Urine UA 1+ (NEGATIVE); Nitrite Urine UA NEGATIVE (Negative); Occult Blood Urine UA NEGATIVE (Negative); Protein Urine UA NEGATIVE (Negative)
[2024-02-16 18:00] LABS: Creatinine Urine Random 91.04 mg/dL; Protein (Total) Urine Random 6 mg/dL (0-12); Protein Creatinine Ratio Urine 0.06 GRAM/24H
[2024-02-16 18:19] LABS: Urine Volume 10mL (spun)
[2024-02-16 18:21] LABS: Bacteria Urine Few (2-10); Culture Indicated Urine Specimen Cultured; RBC Urine None Seen (0-5/HPF); Squamous Epithelial Cell Urine 0-1 /HPF (0-5/HPF); WBC Urine 0-1/HPF (0-5/HPF)
[2024-02-19 08:07] LABS: Parathyroid Hormone Int 28 pg/mL (15-65)
== END ==
PROVIDERS: Student in an Organized Health Care Education/Training Program; PCP Nurse Practitioner; Referring Provider Nurse Practitioner; Visit Provider Nurse Practitioner
DX: E11.29 Type 2 diabetes mellitus with other diabetic kidney complication (principal); R80.9 Proteinuria, unspecified; N05.9 Unspecified nephritic syndrome with unspecified morphologic changes; N30.00 Acute cystitis without hematuria; D70.9 Neutropenia, unspecified; D63.1 Anemia in chronic kidney disease; E83.30 Disorder of phosphorus metabolism, unspecified; N25.81 Secondary hyperparathyroidism of renal origin
CPT/HCPCS: 36415; 76770; 80048; 81001; 82570; 83970; 84100; 84156; 85014; 85018; 87086

== ENCOUNTER → 2024-02-23 12:53 | Outpatient (CLI) | payer MEDICARE, SELFPAY ==
--- NOTE | 2024-03-02 13:34 | DIET.CONS ---
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 Madison's goals are continued weight loss, continued BG management, and CKD3 management. Reports she hasn't changed diet since starting semaglutide and is not eating as much as usual. She wants to work on including more fruits and vegetables in her diet. Has not had BM in 4 days. Diet recall: Brunch: honey hebrew yogurt (1/2 c), cherrios or leftovers D- ham/chicken/fish (4 oz) and pasta or rice 2 coffees diet soda 2-3x/month 35-42 g protein per recall A1c 5.7%, GFR 34, K+ and phos WNL Ht: 4 ft 9 in Wt: 176 lb 8 oz BMI: 38.2 weight hx: 80.059 kg on 02/08/24 (9.5% loss in 3 months, significant) 88.507 kg on 11/08/23 97.522 kg on 05/06/23 Nutrition Diagnosis: Inadequate oral intake r/t decreased appetite and nutrition knowledge deficit aeb diet recall, 9.5% weight loss in 3 months, severe Inadequate fiber intake r/t nutrition knowledge deficit aeb diet recall Interventions: 1. Increase energy intake/increase intake of fibrous foods -Discussed balanced meals/plate method r/t DM and CKD, adequate protein/energy intake, fiber sources, plant based proteins, label reading Goals: 1. Progressively include 1 extra source of fruit/veg every 1-2 weeks 2. 8-10 g protein + fiber + portioned carb snack EER: 50-55 g protein (CKD3+DM) Monitoring/Evaluations: weight, labs, diet recall Electronically Signed by: Maira Arias 03/02/24 13:34 Clinical Dietitian [address] [id number]
== END ==
PROVIDERS: PCP Nurse Practitioner; Referring Provider Nurse Practitioner
DX: E11.22 Type 2 diabetes mellitus with diabetic chronic kidney disease (principal); N18.2 Chronic kidney disease, stage 2 (mild); Z71.3 Dietary counseling and surveillance; Z68.38 Body mass index [BMI] 38.0-38.9, adult
CPT/HCPCS: 97802

== ENCOUNTER → 2024-04-05 13:43 | Outpatient (CLI) | payer MEDICARE, SELFPAY ==
--- NOTE | 2024-04-05 13:45 | DIET.OUTPTC ---
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 Madison reports experiencing constipation. Has been having 1-2 c cherries for snack, but is still working to incorporate additional fiber sources daily. Is wanting to expand dinner options to include vegetables and different grain options. Tried whole wheat pasta and brown rice. Is on Tirzepatide. Experiences low appetite. Diet recall: Brunch: honey icelandic yogurt (1/2 c) with granola OR instant oatmeal 1-2 x/wk delays breakfast until 1p 1-2 c cherries D- ham/chicken/pork (4 oz) and pasta or rice 2 coffees diet soda 2-3x/month 35-42 g protein per recall A1c 5.7%, GFR 34, K+ and phos WNL Ht: 4 ft 9 in Wt: 176 lb 8 oz BMI: 38.2 Weight History: 79 kg on 04/05/24 per pt 80.059 kg on 02/08/24 (9.5% loss in 3 months, significant) 88.507 kg on 11/08/23 97.522 kg on 05/06/23 Nutrition Diagnosis: Inadequate fiber intake r/t nutrition knowledge deficit aeb diet recall Interventions: 1. Increase fiber intake -Reviewed fiber sources -Goal setting with NV 2. Consistent carbohydrate/balanced plate w/ protein+fiber -Reviewed plant based protein options -Carb w/ fiber+protein snack between meals 3. Consistent adequate fluid intake -Reviewed fluid needs Goals: 1. Fruit with breakfast 2. Whole grain options at dinner (brown rice, whole wheat pasta, quinoa) and/or vegetable 3. Adequate fluid intake 65-75 oz (25-30 mL/kg per age) EER: 45-50 g protein (CKD3+DM) 21 g fiber Monitoring/Evaluations: weight, labs, diet recall, bowel movements f/u in 2 months Electronically Signed by: Maira Arias 04/05/24 13:45 Clinical Dietitian [address] [address]
== END ==
PROVIDERS: PCP Nurse Practitioner; Referring Provider Nurse Practitioner
DX: E11.22 Type 2 diabetes mellitus with diabetic chronic kidney disease (principal); N18.30 Chronic kidney disease, stage 3 unspecified; K59.00 Constipation, unspecified; Z71.3 Dietary counseling and surveillance; Z68.38 Body mass index [BMI] 38.0-38.9, adult
CPT/HCPCS: 97803

== ENCOUNTER → 2024-04-05 14:04 | Outpatient (CLI) | payer MEDICARE, SELFPAY ==
[2024-04-05 16:00] LABS: BUN Creatinine Ratio 14.2 (6-22); Blood Urea Nitrogen 19 mg/dL (7-17); Calcium 9.5 mg/dL (8.4-10.2); Carbon Dioxide 28 mmol/L (22-32); Chloride 96 mmol/L (98-107); Estimated Glomerular Filt Rate 41 mL/min (>60); Glucose 130 mg/dL (80-110); HEMOLYSIS 16 (0-50); Potassium 3.3 mmol/L (3.4-5.1); Sodium 134 mmol/L (137-145)
[2024-04-05 16:22] LABS: Creatinine Urine Random 216.59 mg/dL; Protein (Total) Urine Random 10 mg/dL (0-12); Protein Creatinine Ratio Urine 0.04 GRAM/24H
== END ==
PROVIDERS: PCP Nurse Practitioner; Referring Provider Student in an Organized Health Care Education/Training Program; Visit Provider Student in an Organized Health Care Education/Training Program
DX: N05.9 Unspecified nephritic syndrome with unspecified morphologic changes (principal); R80.9 Proteinuria, unspecified; E11.22 Type 2 diabetes mellitus with diabetic chronic kidney disease; N18.30 Chronic kidney disease, stage 3 unspecified; K59.00 Constipation, unspecified; Z71.3 Dietary counseling and surveillance; Z68.38 Body mass index [BMI] 38.0-38.9, adult
CPT/HCPCS: 36415; 80048; 82570; 84156; 97803

== ENCOUNTER → 2024-04-10 11:21 | Outpatient (CLI) | payer MEDICARE, SELFPAY ==
[2024-04-10 12:26] LABS: Protein (Total) Urine Random 6 mg/dL (0-12); Protein Creatinine Ratio Urine 0.03 GRAM/24H
[2024-04-10 13:18] LABS: BUN Creatinine Ratio 14.4 (6-22); Blood Urea Nitrogen 19 mg/dL (7-17); Calcium 9.6 mg/dL (8.4-10.2); Carbon Dioxide 33 mmol/L (22-32); Chloride 95 mmol/L (98-107); Estimated Glomerular Filt Rate 41 mL/min (>60); Glucose 126 mg/dL (80-110); HEMOLYSIS < 15 (0-50); Potassium 4.1 mmol/L (3.4-5.1); Sodium 134 mmol/L (137-145)
== END ==
PROVIDERS: PCP Nurse Practitioner; Referring Provider Student in an Organized Health Care Education/Training Program; Visit Provider Student in an Organized Health Care Education/Training Program
DX: R80.9 Proteinuria, unspecified (principal); E87.5 Hyperkalemia; N05.9 Unspecified nephritic syndrome with unspecified morphologic changes
CPT/HCPCS: 36415; 80048; 82570; 84156

== ENCOUNTER → 2024-04-25 16:32 | Outpatient (CLI) | payer MEDICARE, SELFPAY ==
[2024-04-25 18:47] LABS: Influenza A - CEPHEID Flu A NEGATIVE (NEGATIVE); Influenza B - CEPHEID Flu B NEGATIVE (NEGATIVE); Respiratory Syncytial Virus Negative (Negative)
[2024-04-25 18:48] LABS: COVID-19 CEPHEID 4-PLEX PCR Negative (Negative)
== END ==
PROVIDERS: PCP Nurse Practitioner; Visit Provider Physician Assistant Surgical
DX: R05.1 Acute cough (principal)
CPT/HCPCS: 0241U

== ENCOUNTER → 2024-04-30 14:10 | Outpatient (CLI) | payer MEDICARE, SELFPAY ==
--- NOTE | 2024-04-30 14:11 | DI.RAD.S_ITS ---
PROCEDURE: XR CHEST 2V INDICATIONS: Cough TECHNIQUE: 2 views of the chest were acquired. COMPARISON: None. FINDINGS: Surgical changes and devices: None. Lungs and pleura: Strand-like bibasilar opacities. No significant pleural effusion or pneumothorax. Mediastinum: Mediastinal contours are normal. Heart size is normal. Bones and chest wall: No suspicious bony abnormalities. Soft tissues appear unremarkable. IMPRESSION: Linear bibasilar opacities may reflect atelectasis or infection. Correlate clinically. Dictated by: Shantelle Fournier M.D. on 04/30/2024 at 16:40 Approved by: Shantelle Fournier M.D. on 04/30/2024 at 16:40
== END ==
PROVIDERS: PCP Nurse Practitioner; Referring Provider Physician Assistant Surgical; Visit Provider Physician Assistant Surgical
DX: R05.9 Cough, unspecified (principal)
CPT/HCPCS: 71046

== ENCOUNTER → 2024-05-14 11:28 | Outpatient (CLI) | payer MEDICARE, SELFPAY ==
[2024-05-14 12:34] LABS: Add Manual Diff / Slide Review NO; Basophils Absolute Auto 0 /uL (0-100); Basophils Percent Auto 0.7 % (0-2); Eosinophils Absolute Auto 200 /uL (0-450); Eosinophils Percent Auto 3.6 % (2-4); Hematocrit 33.7 % (36-46); Lymphocytes Absolute Auto 2500 /uL (1100-4500); Lymphocytes Percent Auto 38.8 % (25-40); Mean Corpuscular HGB Conc 32.7 % (30-36); Mean Corpuscular Hemoglobin 27.9 PG (26-34); Mean Corpuscular Volume 85.6 fL (80-100); Monocytes Absolute Auto 400 /uL (0-900); Monocytes Percent Auto 5.9 % (3-14); Neutrophils Absolute Auto 3300 /uL (1500-7000); Platelet Count 385 X10^3/uL (150-400); Red Blood Cell Count 3.94 X10^6/uL (4.0-5.2); White Blood Cell Count 6.5 X10^3/uL (4.5-11.0)
[2024-05-14 12:52] LABS: HEMOLYSIS < 15 (0-50); Iron 37 ug/dL (37-170)
[2024-05-14 13:02] LABS: Alanine Aminotransferase 15 IU/L (<35); Albumin 3.9 g/dL (3.5-5.0); Albumin Globulin Ratio 1.6 (1.0-2.8); Alkaline Phosphatase 88 U/L (38-126); Aspartate Aminotransferase 24 IU/L (14-36); Bilirubin Total 0.5 mg/dL (0.2-1.3); Blood Urea Nitrogen 18 mg/dL (7-17); Calcium 10.1 mg/dL (8.4-10.2); Carbon Dioxide 29 mmol/L (22-32); Chloride 99 mmol/L (98-107); Cholesterol 130 mg/dL (140-199); Estimated Glomerular Filt Rate 46 mL/min (>60); Globulin 2.5 g/dL (1.7-4.1); Glucose 112 mg/dL (80-110); HDL Cholesterol 50 mg/dL (40-60); HEMOLYSIS < 15 (0-50); LDL Cholesterol Calculated 41 mg/dL (<100); Potassium 3.5 mmol/L (3.4-5.1); Sodium 136 mmol/L (137-145); Total Protein 6.4 g/dL (6.3-8.2); Triglycerides 193 mg/dL (35-150)
[2024-05-14 13:04] LABS: Percent Iron Saturation 11 % (15-50); Total Iron Binding Capacity 329 ug/dL (265-497); Transferrin 258 mg/dL (206-381)
[2024-05-14 13:12] LABS: Free T3, Triiodothyronine Free 3.24 pg/mL (2.77-5.27); Free T4, Direct Thyroxine 0.97 ng/dL (0.78-2.19)
[2024-05-14 13:16] LABS: Hemoglobin A1C% w Est Avg Glu 5.8 % (4.0-6.0)
[2024-05-14 15:09] LABS: Creatinine Urine Random 330.57 mg/dL
[2024-05-14 15:15] LABS: Microalbumin Urine Random 15.2 mg/dL (0-1.6)
== END ==
PROVIDERS: PCP Nurse Practitioner; Referring Provider Nurse Practitioner; Visit Provider Nurse Practitioner
DX: E11.29 Type 2 diabetes mellitus with other diabetic kidney complication (principal); R80.9 Proteinuria, unspecified; E11.22 Type 2 diabetes mellitus with diabetic chronic kidney disease; N18.30 Chronic kidney disease, stage 3 unspecified; E78.2 Mixed hyperlipidemia; E78.1 Pure hyperglyceridemia; D63.8 Anemia in other chronic diseases classified elsewhere; Z79.899 Other long term (current) drug therapy; I12.9 Hypertensive chronic kidney disease with stage 1 through stage 4 chronic kidney disease, or unspecified chronic kidney disease
CPT/HCPCS: 36415; 80053; 80061; 82043; 82570; 83036; 83540; 83550; 84439; 84443; 84481; 85025

== ENCOUNTER → 2024-08-08 10:56 | Outpatient (CLI) | payer MEDICARE, SELFPAY ==
[2024-08-08 11:25] LABS: Add Manual Diff / Slide Review NO; Basophils Absolute Auto 0 /uL (0-100); Basophils Percent Auto 0.4 % (0-2); Eosinophils Absolute Auto 200 /uL (0-450); Eosinophils Percent Auto 2.7 % (2-4); Hematocrit 38.9 % (36-46); Hemoglobin 12.9 g/dL (12.0-16.0); Lymphocytes Absolute Auto 2900 /uL (1100-4500); Lymphocytes Percent Auto 33.2 % (25-40); Mean Corpuscular HGB Conc 33.1 % (30-36); Mean Corpuscular Hemoglobin 28.4 PG (26-34); Monocytes Absolute Auto 500 /uL (0-900); Monocytes Percent Auto 5.4 % (3-14); Neutrophils Absolute Auto 5000 /uL (1500-7000); Neutrophils Percent Auto 58.3 % (50-75); Platelet Count 330 X10^3/uL (150-400); Red Blood Cell Count 4.52 X10^6/uL (4.0-5.2); Red Cell Distribution Width 17.1 % (11.6-14.8); White Blood Cell Count 8.6 X10^3/uL (4.5-11.0)
[2024-08-08 12:12] LABS: HEMOLYSIS 20 (0-50); Iron 70 ug/dL (37-170)
[2024-08-08 12:13] LABS: Creatinine Urine Random 312.54 mg/dL
[2024-08-08 12:14] LABS: Hemoglobin A1C% w Est Avg Glu 5.3 % (4.0-6.0)
[2024-08-08 12:17] LABS: Microalbumin Urine Random 3.7 mg/dL (0-1.6)
[2024-08-08 12:25] LABS: Percent Iron Saturation 28 % (15-50); Total Iron Binding Capacity 254 ug/dL (265-497); Transferrin 232 mg/dL (206-381)
== END ==
PROVIDERS: PCP Family Medicine; Referring Provider Nurse Practitioner; Visit Provider Nurse Practitioner
DX: E11.29 Type 2 diabetes mellitus with other diabetic kidney complication (principal); R80.9 Proteinuria, unspecified; E11.22 Type 2 diabetes mellitus with diabetic chronic kidney disease; D63.8 Anemia in other chronic diseases classified elsewhere; N18.30 Chronic kidney disease, stage 3 unspecified; R94.5 Abnormal results of liver function studies
CPT/HCPCS: 36415; 82043; 82570; 83036; 83540; 83550; 85025

== ENCOUNTER → 2024-11-05 10:57 | Outpatient (CLI) | payer MEDICARE, SELFPAY ==
[2024-11-05 11:44] LABS: Hematocrit 37.9 % (36-46); Hemoglobin 12.8 g/dL (12.0-16.0)
[2024-11-05 12:08] LABS: BUN Creatinine Ratio 17.9 (6-22); Blood Urea Nitrogen 20 mg/dL (7-17); Carbon Dioxide 31 mmol/L (22-32); Chloride 94 mmol/L (98-107); Estimated Glomerular Filt Rate 50 mL/min (>60); Glucose 94 mg/dL (80-110); HEMOLYSIS < 15 (0-50); Potassium 3.7 mmol/L (3.4-5.1); Sodium 134 mmol/L (137-145)
[2024-11-05 12:22] LABS: Creatinine Urine Random 145.51 mg/dL; Protein (Total) Urine Random 5 mg/dL (0-12); Protein Creatinine Ratio Urine 0.03 GRAM/24H
[2024-11-06 19:07] LABS: Calcium 10.1 mg/dL (8.7-10.3); Parathyroid Hormone, Intact 38 pg/mL (15-65)
== END ==
PROVIDERS: PCP Family Medicine; Referring Provider Student in an Organized Health Care Education/Training Program; Visit Provider Student in an Organized Health Care Education/Training Program
DX: N05.9 Unspecified nephritic syndrome with unspecified morphologic changes (principal); D70.9 Neutropenia, unspecified; D63.1 Anemia in chronic kidney disease; N25.81 Secondary hyperparathyroidism of renal origin; R80.9 Proteinuria, unspecified
CPT/HCPCS: 36415; 80048; 82310; 82570; 83970; 84156; 85014; 85018

== ENCOUNTER → 2024-11-26 16:14 | Outpatient (CLI) | payer MEDICARE, SELFPAY ==
--- NOTE | 2024-11-26 16:15 | DI.MG.S_ITS ---
MM screening mammo BI: 11/26/2024. BI-RADS: 1 CLINICAL: 79-year old female for bilateral screening mammogram. Tyrer-Cuzick lifetime risk of 1.8%. No personal or first-degree family history of breast cancer. History of ovarian cancer in one first-degree relative. PRIOR EXAMS 10/13/2023, 09/28/2022, 09/23/2021, 08/22/2020, 08/09/2019, 08/03/2018, 05/27/2017, 04/02/2016. MAMMOGRAPHY TECHNIQUE: 2D and 3D (tomosynthesis) digital mammographic views obtained, with additional images as needed for full coverage. Current study was also evaluated with a Computer Aided Detection (CAD) system. DENSITY B. There are scattered areas of fibroglandular density. MAMMOGRAPHY FINDINGS Bilateral: No suspicious mass, asymmetry, microcalcification, or other abnormality seen. No significant change from comparison. IMPRESSION: * No evidence of malignancy. RECOMMENDATIONS Bilateral * Annual screening mammography. OVERALL ASSESSMENT CATEGORY BI-RADS-1: Negative. The [employer] recommends annual screening mammography beginning at age 40 for women with average risk of breast cancer. ELECTRONICALLY SIGNED: Sammi Koroma M.D. on 11/27/2024 at 11:57:57 AM PT Interpreting Station ID: [id number]
== END ==
PROVIDERS: PCP Family Medicine; Referring Provider Family Medicine; Visit Provider Family Medicine
DX: Z12.31 Encounter for screening mammogram for malignant neoplasm of breast (principal); Z80.41 Family history of malignant neoplasm of ovary
CPT/HCPCS: 77063; 77067

== ENCOUNTER 2025-02-21 13:45 | Outpatient (RCR) | payer MEDICARE, SELFPAY ==
--- NOTE | 2024-12-19 18:38 | PT.OIE ---
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 Class 3 obesity Controlled type 2 diabetes mellitus without complication, without long-term current use of insulin Degenerative joint disease (DJD) of hip Diabetes (Unknown) Diverticular disease (Unknown) Diverticulosis of intestine (04/05/14) Dorsalgia Essential hypertension Facet arthropathy, lumbar Fall Gastroesophageal reflux disease GERD (gastroesophageal reflux disease) (Unknown) Gout Gout (Unknown) Heart murmur (01/05/11) Heart murmur (Unknown) Hemorrhoids (Unknown) Hyperlipemia (Unknown) Hypertension (Unknown) Hypertriglyceridemia Lumbar radiculopathy Lumbar spondylosis Microalbuminuria Non-insulin dependent diabetes mellitus Osteoarthritis (Unknown) Other care home (current) drug therapy Pain of back and right lower extremity Plantar fasciitis (05/2014) Primary osteoarthritis of both knees (06/09/15) Proteinuria due to type 2 diabetes mellitus Sacral dysfunction Sciatic leg pain Spondylolisthesis at L4-L5 level Past Surgical History (Last Reviewed 05/15/24 @ 15:56 by TIMBO Monae) H/O wisdom tooth extraction History of cataract removal with insertion of prosthetic lens History of tonsillectomy Status post cholecystectomy Visit Care Team Role Provider Type Kiara Kennedy DO Attending Provider Physician Family Provider Primary Care Provider Referring Provider Specialty: Family Practice Address: [address] [place] [address], [address], [facility] Email: [email or web address] Physical Therapy Initial Evaluation PT-OP-A Visit Information Start: 12/19/24 08:13 Freq: Status: Active Protocol: Document 12/19/24 13:00 [facility] (Rec: 12/19/24 15:22 [facility] [id number]) Out-Patient Physical Therapy Visit Information Visit Information Visit Type Initial Evaluation Visit Start Time 13:46 Visit Stop Time 14:31 Visit Number 1 Number of SOFT BOARDER Visits 0 PT-OP-B Current Condition Start: 12/19/24 08:13 Freq: Status: Active Protocol: Document 12/19/24 13:00 [facility] (Rec: 12/19/24 15:22 [facility] [id number]) Current Condition History of Current Condition Current Complaints balance, weakness, difficulty in walking History of Current Condition Pt reports she has been tripping and she thinks it is the shoes. She is touching things to help w/balance. She has recently started ozempic for sugar control and wants to go for walks. Dgt says she feels like robel is off balance and has a different style of walking now where she lat leans and is in ext. Dgt thinks there is something going on that is causing her to walk differently. Its been the past year that she has had this decline. Dgt saw her fall 3 times, caught her once before she face planted. She has been falling once a month. They are trips each time d/t catching her to, so always forward. She has a fear of stepping up/down a curb. Has SPC but hasn't used. pt reports B knee pain -up a slight incline hurts. It is sporadic. Got injections in B knees tuesday and that has made a lot of difference. Pt had R buttocks pain and lumbar spine and Dr. Garcia did injections and that helped. Now it occ pulls. The walking change has been the past couple years. Its been 5 years since she went for walks ( stopped d/t pain and SOB). Pt used to have issues w/R ankle hurting out of no where and would look like it wanted to turn then got better and the L felt better after. Treatment Goals Patient/Caregiver Goals go for walks PT-OP-C Subjective Start: 12/19/24 08:13 Freq: Status: Active Protocol: Document 12/19/24 13:00 [facility] (Rec: 12/19/24 15:22 [facility] [id number]) Patient Questionnaires Lower Extremity Functional Scale LEFS Score 52/80 PT-OP-D Balance Start: 12/19/24 08:13 Freq: Status: Active Protocol: Document 12/19/24 13:00 [facility] (Rec: 12/19/24 15:22 [facility] [id number]) Balance Tests Warren Balance Test Warren Balance Test Score 44 PT-OP-E Functional Tests Start: 12/19/24 18:22 Freq: Status: Active Protocol: Document 12/19/24 13:00 [facility] (Rec: 12/19/24 18:24 [facility] [id number]) Functional Tests 6 Minute Walk Test Distance 520ft Device Used Gaitbelt Comments 3 min 45 sec max pt could do 30 Second Sit to Stand Test Score 10 Comments silver chair Five Times Sit to Stand Test Score 16 sec Comments silver chair PT-OP-J Posture/Palpation/Skin Start: 12/19/24 08:13 Freq: Status: Active Protocol: Document 12/19/24 13:00 [facility] (Rec: 12/19/24 18:37 [facility] [id number]) Posture Evaluation [facility] Postural Classification System Roxie Postural Classifications Posterior/Anterior PT-OP-L Special Tests Start: 12/19/24 08:13 Freq: Status: Active Protocol: Document 12/19/24 13:00 [facility] (Rec: 12/19/24 15:22 [facility] [id number]) Special Tests Other Special Tests Special Tests B patellar reflexes WNL; R achilles unable to elicit but pt did not relax, L WNL PT-OP-M Strength Start: 12/19/24 08:13 Freq: Status: Active Protocol: Document 12/19/24 13:00 [facility] (Rec: 12/19/24 15:22 [facility] [id number]) Hip Strength Hip Manual Muscle Testing Right Flexion (L2) 3 Fair Extension (S1) 3- Fair- Abduction 3 Fair External Rotation 3 Fair Internal Rotation 4 Good Left Flexion (L2) 3+ Fair+ Extension (S1) 3 Fair Abduction 3 Fair External Rotation 3 Fair Internal Rotation 4- Good- Knee Strength Knee Manual Muscle Testing Right Flexion (S2) 4- Good- Extension (L3) 4- Good- Left Flexion (S2) 4- Good- Extension (L3) 4- Good- Ankle/Foot Strength Ankle and Foot Manual Muscle Testing Right Dorsiflexion (L4) 4 Good Plantarflexion (S1) 4+ Good+ Comments PF tested seated Left Dorsiflexion (L4) 4 Good Plantarflexion (S1) 4+ Good+ PT-OP-Q Treatments Start: 12/19/24 08:13 Freq: Status: Active Protocol: Document 12/19/24 13:00 [facility] (Rec: 12/19/24 15:22 [facility] [id number]) Gait Training Gait Activity 4WW Distance/Duration 8 min Comments edu on set up, use of brakes, and walking w/device-amb 50ft Self-Care/Home Management Treatment Education Other Education 15 min: edu re: safety and using walker to avoid falls so she can progress slowly. edu to start small 3 min walks not to point of too much fatigue. Edu on PT for strength and balance to improve her mobility and importance of cont this. Edu on why she needs a walker now and make the goal to get rid of it later PT-OP-T Assessment and Plan Start: 12/19/24 08:13 Freq: Status: Active Protocol: Document 12/19/24 13:00 [facility] (Rec: 12/19/24 15:22 [facility] [id number]) Physical Therapy Assessment Rehab Potential Rehabilitation Potential Good Evaluation Complexity Number of Personal Factors/Comorbidities 3 or More Number of Body Systems Impaired 4 or More Clinical Presentation at Evaluation Evolving Impairments Impairments Activity Tolerance,Balance, Functional Activities, Functional Mobility,Gait,Pain, Posture,Soft Tissue Mobility, Strength Goals sit to stand Impairment 5x in 16 sec Prison Goal (LTG) Pt will improve 5x sit to stand to no greater than 13 sec to meet age related norms and dec risk for falls. LTG Duration 03/13 6 min walk Short Term Goal (STG) Pt will be able to complete a 6 min walk test STG Duration 02/01 Instrumentation Designer Goal (LTG) Pt will be able to amb at least 1000ft in 6 min w/o inc pain greater than 2/10 to show improved activity tolerance. LTG Duration 03/13 DGI Impairment 14 Short Term Goal (STG) Pt will score at least 17 on DGI to show dec risk for falls . STG Duration 02/01 Prison Goal (LTG) Pt will score at least 20 on DGI to show dec risk for falls . LTG Duration 03/13 Assessment Summary Assessment Pt presents w/main c/o dec balance and impaired gait mechanics along w/frequent falls especially in the past year. Per pt and dgt, the past few years, pt has had instances of pain that have limited her mobility and her gait has changed along w/her posture throughout this time and she has had frequent falls but none w/o major injury. She notes mild hip pain and knee pain B w/hx of pain down her leg and in B ankles but not currently. She used to walk and is very motivated to return to this. She would benefit from skilled PT to return to these activities. Physical Therapy Plan Frequency and Duration Frequency of Treatment 2x/Week Duration of treatment (weeks) 12 Plan of Care Start Date 12/19/24 Plan of Care End Date 03/13/25 Therapeutic Interventions Therapeutic Interventions Balance Training,Gait Training ,Home Exercise Program,Joint Mobilizations,Manual Therapy, Orthotic/Prosthetic Management ,Patient/Caregiver Education, Self-Care/Home Management,Soft Tissue Mobilization,Taping, Therapeutic Activities, Therapeutic Exercises, Vestibular Rehabilitation Modalities Cold Pack/Ice Massage,Electric Stimulation,Hot Packs Next Visit Focus/Plan Next Note Type Treatment Note
--- NOTE | 2024-12-19 18:38 | PT.OPPOC ---
Physical, Occupational & Speech Therapy At [facility] Current Diagnoses Other chronic pain (12/19/24) Pain in right knee (12/19/24) Pain in left knee (12/19/24) Sciatica, right side (12/19/24) Sciatica, left side (12/19/24) Difficulty in walking, not elsewhere classified (12/19/24) Other abnormalities of gait and mobility (12/19/24) Visit Care Team Role Provider Type Kiara Kennedy DO Attending Provider Physician Family Provider Primary Care Provider Referring Provider Specialty: Family Practice Address: [address] [place] [address], [address], [address] Email: [email or web address] Plan Of Care PT-OP-B Current Condition Start: 12/19/24 08:13 Freq: Status: Active Protocol: Document 12/19/24 13:00 [facility] (Rec: 12/19/24 15:22 [facility] [id number]) Current Condition History of Current Condition Current Complaints balance, weakness, difficulty in walking History of Current Condition Pt reports she has been tripping and she thinks it is the shoes. She is touching things to help w/balance. She has recently started ozempic for sugar control and wants to go for walks. Dgt says she feels like robel is off balance and has a different style of walking now where she lat leans and is in ext. Dgt thinks there is something going on that is causing her to walk differently. Its been the past year that she has had this decline. Dgt saw her fall 3 times, caught her once before she face planted. She has been falling once a month. They are trips each time d/t catching her to, so always forward. She has a fear of stepping up/down a curb. Has SPC but hasn't used. pt reports B knee pain -up a slight incline hurts. It is sporadic. Got injections in B knees tuesday and that has made a lot of difference. Pt had R buttocks pain and lumbar spine and Dr. Garcia did injections and that helped. Now it occ pulls. The walking change has been the past couple years. Its been 5 years since she went for walks ( stopped d/t pain and SOB). Pt used to have issues w/R ankle hurting out of no where and would look like it wanted to turn then got better and the L felt better after. Treatment Goals Patient/Caregiver Goals go for walks PT-OP-T Assessment and Plan Start: 12/19/24 08:13 Freq: Status: Active Protocol: Document 12/19/24 13:00 [facility] (Rec: 12/19/24 15:22 [facility] [id number]) Physical Therapy Assessment Rehab Potential Rehabilitation Potential Good Evaluation Complexity Number of Personal Factors/Comorbidities 3 or More Number of Body Systems Impaired 4 or More Clinical Presentation at Evaluation Evolving Impairments Impairments Activity Tolerance,Balance, Functional Activities, Functional Mobility,Gait,Pain, Posture,Soft Tissue Mobility, Strength Goals sit to stand Impairment 5x in 16 sec Spinning Lathe Operator Hydraulic Goal (LTG) Pt will improve 5x sit to stand to no greater than 13 sec to meet age related norms and dec risk for falls. LTG Duration 03/13 6 min walk Short Term Goal (STG) Pt will be able to complete a 6 min walk test STG Duration 02/01 Spinning Lathe Operator Hydraulic Goal (LTG) Pt will be able to amb at least 1000ft in 6 min w/o inc pain greater than 2/10 to show improved activity tolerance. LTG Duration 03/13 DGI Impairment 14 Short Term Goal (STG) Pt will score at least 17 on DGI to show dec risk for falls . STG Duration 02/01 Spinning Lathe Operator Hydraulic Goal (LTG) Pt will score at least 20 on DGI to show dec risk for falls . LTG Duration 03/13 Assessment Summary Assessment Pt presents w/main c/o dec balance and impaired gait mechanics along w/frequent falls especially in the past year. Per pt and dgt, the past few years, pt has had instances of pain that have limited her mobility and her gait has changed along w/her posture throughout this time and she has had frequent falls but none w/o major injury. She notes mild hip pain and knee pain B w/hx of pain down her leg and in B ankles but not currently. She used to walk and is very motivated to return to this. She would benefit from skilled PT to return to these activities. Physical Therapy Plan Frequency and Duration Frequency of Treatment 2x/Week Duration of treatment (weeks) 12 Plan of Care Start Date 12/19/24 Plan of Care End Date 03/13/25 Therapeutic Interventions Therapeutic Interventions Balance Training,Gait Training ,Home Exercise Program,Joint Mobilizations,Manual Therapy, Orthotic/Prosthetic Management ,Patient/Caregiver Education, Self-Care/Home Management,Soft Tissue Mobilization,Taping, Therapeutic Activities, Therapeutic Exercises, Vestibular Rehabilitation Modalities Cold Pack/Ice Massage,Electric Stimulation,Hot Packs Next Visit Focus/Plan Next Note Type Treatment Note Plan of Care Dates Plan of Care Start Date 12/19/24 Plan of Care End Date 03/13/25 Electronically Signed by: Yasmine Mcghee, PT 12/19/24 1686 If you are in agreement with this Plan of Care, please return a signed and dated copy. I have reviewed this Plan of Care and certify that the skilled therapy services above are required to meet the patient?s needs. Physician Signature Date Printed Name and Credentials Clinical Instructor Signature Printed Name and Credentials
--- NOTE | 2024-12-24 10:43 | PT.OTN ---
Current Diagnoses Other chronic pain (12/24/24) Pain in right knee (12/24/24) Pain in left knee (12/24/24) Sciatica, right side (12/24/24) Sciatica, left side (12/24/24) Difficulty in walking, not elsewhere classified (12/24/24) Other abnormalities of gait and mobility (12/24/24) Physical Therapy Treatment Note PT-OP-A Visit Information Start: 12/19/24 08:13 Freq: Status: Active Protocol: Document 12/24/24 08:44 [facility] (Rec: 12/24/24 10:39 [facility] [id number]) Out-Patient Physical Therapy Visit Information Visit Information Visit Type Treatment Note Visit Start Time 09:46 Visit Stop Time 10:26 Visit Number 2 Number of PUBLIC SAFETY TELECOMMUNICATOR Visits 0 PT-OP-B Current Condition Start: 12/19/24 08:13 Freq: Status: Active Protocol: Document 12/19/24 13:00 [facility] (Rec: 12/19/24 15:22 [facility] [id number]) Current Condition History of Current Condition Current Complaints balance, weakness, difficulty in walking History of Current Condition Pt reports she has been tripping and she thinks it is the shoes. She is touching things to help w/balance. She has recently started ozempic for sugar control and wants to go for walks. Dgt says she feels like robel is off balance and has a different style of walking now where she lat leans and is in ext. Dgt thinks there is something going on that is causing her to walk differently. Its been the past year that she has had this decline. Dgt saw her fall 3 times, caught her once before she face planted. She has been falling once a month. They are trips each time d/t catching her to, so always forward. She has a fear of stepping up/down a curb. Has SPC but hasn't used. pt reports B knee pain -up a slight incline hurts. It is sporadic. Got injections in B knees tuesday and that has made a lot of difference. Pt had R buttocks pain and lumbar spine and Dr. Garcia did injections and that helped. Now it occ pulls. The walking change has been the past couple years. Its been 5 years since she went for walks ( stopped d/t pain and SOB). Pt used to have issues w/R ankle hurting out of no where and would look like it wanted to turn then got better and the L felt better after. Treatment Goals Patient/Caregiver Goals go for walks PT-OP-C Subjective Start: 12/19/24 08:13 Freq: Status: Active Protocol: Document 12/24/24 08:44 [facility] (Rec: 12/24/24 10:39 [facility] [id number]) OP-PT Subjective Patient Comments Patient Comments Pt reports she is using her 4WW PT-OP-D Balance Start: 12/19/24 08:13 Freq: Status: Active Protocol: Document 12/19/24 13:00 [facility] (Rec: 12/19/24 15:22 [facility] [id number]) Balance Tests Warren Balance Test Warren Balance Test Score 44 PT-OP-E Functional Tests Start: 12/19/24 18:22 Freq: Status: Active Protocol: Document 12/19/24 13:00 [facility] (Rec: 12/19/24 18:24 [facility] [id number]) Functional Tests 6 Minute Walk Test Distance 520ft Device Used Gaitbelt Comments 3 min 45 sec max pt could do 30 Second Sit to Stand Test Score 10 Comments silver chair Five Times Sit to Stand Test Score 16 sec Comments silver chair PT-OP-J Posture/Palpation/Skin Start: 12/19/24 08:13 Freq: Status: Active Protocol: Document 12/19/24 13:00 [facility] (Rec: 12/19/24 18:37 [facility] [id number]) Posture Evaluation Roxie Postural Classification System Roxie Postural Classifications Posterior/Anterior PT-OP-L Special Tests Start: 12/19/24 08:13 Freq: Status: Active Protocol: Document 12/19/24 13:00 [facility] (Rec: 12/19/24 15:22 [facility] [id number]) Special Tests Other Special Tests Special Tests B patellar reflexes WNL; R achilles unable to elicit but pt did not relax, L WNL PT-OP-M Strength Start: 12/19/24 08:13 Freq: Status: Active Protocol: Document 12/19/24 13:00 [facility] (Rec: 12/19/24 15:22 [facility] [id number]) Hip Strength Hip Manual Muscle Testing Right Flexion (L2) 3 Fair Extension (S1) 3- Fair- Abduction 3 Fair External Rotation 3 Fair Internal Rotation 4 Good Left Flexion (L2) 3+ Fair+ Extension (S1) 3 Fair Abduction 3 Fair External Rotation 3 Fair Internal Rotation 4- Good- Knee Strength Knee Manual Muscle Testing Right Flexion (S2) 4- Good- Extension (L3) 4- Good- Left Flexion (S2) 4- Good- Extension (L3) 4- Good- Ankle/Foot Strength Ankle and Foot Manual Muscle Testing Right Dorsiflexion (L4) 4 Good Plantarflexion (S1) 4+ Good+ Comments PF tested seated Left Dorsiflexion (L4) 4 Good Plantarflexion (S1) 4+ Good+ PT-OP-Q Treatments Start: 12/19/24 08:13 Freq: Status: Active Protocol: Document 12/24/24 08:44 [facility] (Rec: 12/24/24 10:39 [facility] [id number]) Gym Equipment Shuttle Recovery Bilateral Squats Resistance 67# Reps/Time 20 Therapeutic Exercises Sitting Exercises hip ER Side bilateral Equipment Used L3 Reps/Minutes 1 min hold march Side bilateral Equipment Used L3 Reps/Minutes 15 Standing Exercises DF/PF Standing Exercise Name DL Side bilateral Reps/Minutes 20 ea Comments cues posture and no lean wall posture Standing Exercise Name wall roll up Side bilateral Reps/Minutes 90 sec march Side bilateral Equipment Used lvl 1 around feet Reps/Minutes 10 Comments cues posture hip abd Side bilateral Equipment Used lvl 1 Reps/Minutes 15 ea Comments cues posture sit to stands Side bilateral Reps/Minutes 15 Comments chair taps Neuro Re-Education Treatment Balance Activities hurdles Details 1-2 hands on rail Comments 1. fwd recip x6 2. sidestep x2 B SLS Comments november w/finger on rail x10 Tandem Details 2 fingers on rail and hold prn Comments 1. B stance trials 2 fwd walk 4x15ft PT-OP-T Assessment and Plan Start: 12/19/24 08:13 Freq: Status: Active Protocol: Document 12/24/24 08:44 [facility] (Rec: 12/24/24 10:39 [facility] [id number]) Physical Therapy Assessment Goals sit to stand Impairment 5x in 16 sec Snf Goal (LTG) Pt will improve 5x sit to stand to no greater than 13 sec to meet age related norms and dec risk for falls. LTG Duration 7/9 6 min walk Short Term Goal (STG) Pt will be able to complete a 6 min walk test STG Duration 02/01 Loan Workout Officer Goal (LTG) Pt will be able to amb at least 1000ft in 6 min w/o inc pain greater than 2/10 to show improved activity tolerance. LTG Duration 03/13 DGI Impairment 14 Short Term Goal (STG) Pt will score at least 17 on DGI to show dec risk for falls . STG Duration 02/01 Loan Workout Officer Goal (LTG) Pt will score at least 20 on DGI to show dec risk for falls . LTG Duration 03/13 Assessment Summary Assessment Pt did well with exercises but did fatigue significantly. She needed hand rails for safety and control w/all balance tasks today. Discussed safety w/doing exercises at home. edu to always have walker locked if standing in placce Physical Therapy Plan Frequency and Duration Frequency of Treatment 2x/Week Duration of treatment (weeks) 12 Plan of Care Start Date 12/19/24 Plan of Care End Date 03/13/25 Next Visit Focus/Plan Next Note Type Treatment Note Next Visit Plan review exercises, work on LE strength and balance.
--- NOTE | 2024-12-26 10:39 | PT.OTN ---
Current Diagnoses Other chronic pain (12/26/24) Pain in right knee (12/26/24) Pain in left knee (12/26/24) Sciatica, right side (12/26/24) Sciatica, left side (12/26/24) Difficulty in walking, not elsewhere classified (12/26/24) Other abnormalities of gait and mobility (12/26/24) Physical Therapy Treatment Note PT-OP-A Visit Information Start: 12/19/24 08:13 Freq: Status: Active Protocol: Document 12/26/24 08:57 AB (Rec: 12/26/24 10:39 AB Laptop) Out-Patient Physical Therapy Visit Information Visit Information Visit Type Treatment Note Visit Note Visit [email or web address] Access Code: [email or web address] Visit Start Time 09:48 Visit Stop Time 10:31 Visit Number 3 Number of FOREST TECHNICIAN Visits 1 PT-OP-B Current Condition Start: 12/19/24 08:13 Freq: Status: Active Protocol: Document 12/19/24 13:00 [facility] (Rec: 12/19/24 15:22 [facility] [id number]) Current Condition History of Current Condition Current Complaints balance, weakness, difficulty in walking History of Current Condition Pt reports she has been tripping and she thinks it is the shoes. She is touching things to help w/balance. She has recently started ozempic for sugar control and wants to go for walks. Dgt says she feels like robel is off balance and has a different style of walking now where she lat leans and is in ext. Dgt thinks there is something going on that is causing her to walk differently. Its been the past year that she has had this decline. Dgt saw her fall 3 times, caught her once before she face planted. She has been falling once a month. They are trips each time d/t catching her to, so always forward. She has a fear of stepping up/down a curb. Has SPC but hasn't used. pt reports B knee pain -up a slight incline hurts. It is sporadic. Got injections in B knees tuesday and that has made a lot of difference. Pt had R buttocks pain and lumbar spine and Dr. Garcia did injections and that helped. Now it occ pulls. The walking change has been the past couple years. Its been 5 years since she went for walks ( stopped d/t pain and SOB). Pt used to have issues w/R ankle hurting out of no where and would look like it wanted to turn then got better and the L felt better after. Treatment Goals Patient/Caregiver Goals go for walks PT-OP-C Subjective Start: 12/19/24 08:13 Freq: Status: Active Protocol: Document 12/26/24 08:57 AB (Rec: 12/26/24 10:39 AB Laptop) OP-PT Subjective Patient Comments Patient Comments Patient reports using her FWW when out of home, and took it to the movie theatre. Madison reports having groin pain post Tuesday session which was gone by the next morning. PT-OP-D Balance Start: 12/19/24 08:13 Freq: Status: Active Protocol: Document 12/19/24 13:00 [facility] (Rec: 12/19/24 15:22 [id number] Balance Tests Warren Balance Test Warren Balance Test Score 44 PT-OP-E Functional Tests Start: 12/19/24 18:22 Freq: Status: Active Protocol: Document 12/19/24 13:00 [facility] (Rec: 12/19/24 18:24 [id number] Functional Tests 6 Minute Walk Test Distance 520ft Device Used Gaitbelt Comments 3 min 45 sec max pt could do 30 Second Sit to Stand Test Score 10 Comments silver chair Five Times Sit to Stand Test Score 16 sec Comments silver chair PT-OP-J Posture/Palpation/Skin Start: 12/19/24 08:13 Freq: Status: Active Protocol: Document 12/19/24 13:00 [facility] (Rec: 12/19/24 18:37 [id number] Posture Evaluation Roxie Postural Classification System Roxie Postural Classifications Posterior/Anterior PT-OP-L Special Tests Start: 12/19/24 08:13 Freq: Status: Active Protocol: Document 12/19/24 13:00 [facility] (Rec: 12/19/24 15:22 [id number] Special Tests Other Special Tests Special Tests B patellar reflexes WNL; R achilles unable to elicit but pt did not relax, L WNL PT-OP-M Strength Start: 12/19/24 08:13 Freq: Status: Active Protocol: Document 12/19/24 13:00 [facility] (Rec: 12/19/24 15:22 [facility] [id number]) Hip Strength Hip Manual Muscle Testing Right Flexion (L2) 3 Fair Extension (S1) 3- Fair- Abduction 3 Fair External Rotation 3 Fair Internal Rotation 4 Good Left Flexion (L2) 3+ Fair+ Extension (S1) 3 Fair Abduction 3 Fair External Rotation 3 Fair Internal Rotation 4- Good- Knee Strength Knee Manual Muscle Testing Right Flexion (S2) 4- Good- Extension (L3) 4- Good- Left Flexion (S2) 4- Good- Extension (L3) 4- Good- Ankle/Foot Strength Ankle and Foot Manual Muscle Testing Right Dorsiflexion (L4) 4 Good Plantarflexion (S1) 4+ Good+ Comments PF tested seated Left Dorsiflexion (L4) 4 Good Plantarflexion (S1) 4+ Good+ PT-OP-Q Treatments Start: 12/19/24 08:13 Freq: Status: Active Protocol: Document 12/26/24 08:57 AB (Rec: 12/26/24 10:39 AB Laptop) Therapeutic Exercises Sitting Exercises hip ER Sitting Exercise Name HEP Side bilateral Equipment Used L3 Reps/Minutes 1 min hold Comments verbal cues march Side bilateral Equipment Used L3 Reps/Minutes 15 Standing Exercises DF/PF Standing Exercise Name DL/PF Side bilateral Equipment Used HEP Reps/Minutes 15 Comments with UE support, VC to lower heels slowly with heel raise march Side bilateral Equipment Used without band for HEP review, 4WW locked Reps/Minutes 10 Comments cues posture hip abd Standing Exercise Name HEP review Side bilateral Equipment Used lvl 1 Reps/Minutes 15 ea Comments verbal cues to avoid toeing out sit to stands Standing Exercise Name HEP review Side bilateral Reps/Minutes 15 Comments chair taps/ monitored for pain Gait Training Gait Activity 4WW Distance/Duration 1 min Comments ed on squeezing brakes when going down hill to decelerate. Good return demonstration post instruction Neuro Re-Education Treatment Balance Activities step up taps Surface 6 inch steps Reps/Duration X10 Comments CGA hands above bars hurdles Details 1-2 hands on rail Comments 1. fwd recip x2 with UE use X 4 with CGA w/ hands above bars 2. sidestep x2 B with UE use SLS Details SLS with CGA without UE use Reps/Duration X 3 X 3 Tandem Details 2 fingers on rail and hold prn Comments 1. B stance trials 30 sec X 2 HEP review 2 fwd walk 4x15ft PT-OP-T Assessment and Plan Start: 12/19/24 08:13 Freq: Status: Active Protocol: Document 12/26/24 08:57 AB (Rec: 12/26/24 10:39 AB Laptop) Physical Therapy Assessment Goals sit to stand Impairment 5x in 16 sec Packing Room Supervisor Goal (LTG) Pt will improve 5x sit to stand to no greater than 13 sec to meet age related norms and dec risk for falls. LTG Duration 03/13 6 min walk Short Term Goal (STG) Pt will be able to complete a 6 min walk test STG Duration 02/01 Packing Room Supervisor Goal (LTG) Pt will be able to amb at least 1000ft in 6 min w/o inc pain greater than 2/10 to show improved activity tolerance. LTG Duration 03/13 DGI Impairment 14 Short Term Goal (STG) Pt will score at least 17 on DGI to show dec risk for falls . STG Duration 30 Packing Room Supervisor Goal (LTG) Pt will score at least 20 on DGI to show dec risk for falls . LTG Duration 03/13 Assessment Summary Assessment SLS improved with shoes removed, L continues to be significantly limited compared to R LE. Madison reports performing some of the exercises at homes, was waiting for her daughter to assist for the exercise with the band. Discussed buying shoes that are more snug around the heel and do not have soles that extend past the back of the heel as patient reports plans for shoe buying trip. Nola rates pain 0/10 end of session. Physical Therapy Plan Frequency and Duration Frequency of Treatment 2x/Week Duration of treatment (weeks) 12 Plan of Care Start Date 12/19/24 Plan of Care End Date 03/13/25 Therapeutic Interventions Therapeutic Interventions Balance Training,Gait Training ,Home Exercise Program,Joint Mobilizations,Manual Therapy, Orthotic/Prosthetic Management ,Patient/Caregiver Education, Self-Care/Home Management,Soft Tissue Mobilization,Taping, Therapeutic Activities, Therapeutic Exercises, Vestibular Rehabilitation Modalities Cold Pack/Ice Massage,Electric Stimulation,Hot Packs Next Visit Focus/Plan Next Note Type Treatment Note Next Visit Plan review exercises, work on LE strength and balance.
--- NOTE | 2024-12-31 10:43 | PT.OTN ---
Current Diagnoses Other chronic pain (12/31/24) Pain in right knee (12/31/24) Pain in left knee (12/31/24) Sciatica, right side (12/31/24) Sciatica, left side (12/31/24) Difficulty in walking, not elsewhere classified (12/31/24) Other abnormalities of gait and mobility (12/31/24) Physical Therapy Treatment Note PT-OP-A Visit Information Start: 12/19/24 08:13 Freq: Status: Active Protocol: Document 12/31/24 09:48 [facility] (Rec: 12/31/24 10:43 [facility] [id number]) Out-Patient Physical Therapy Visit Information Visit Information Visit Type Treatment Note Visit Start Time 09:50 Visit Stop Time 10:30 Visit Number 4 Number of WARD SERVICE SUPERVISOR Visits 0 PT-OP-B Current Condition Start: 12/19/24 08:13 Freq: Status: Active Protocol: Document 12/19/24 13:00 [facility] (Rec: 12/19/24 15:22 [facility] [id number]) Current Condition History of Current Condition Current Complaints balance, weakness, difficulty in walking History of Current Condition Pt reports she has been tripping and she thinks it is the shoes. She is touching things to help w/balance. She has recently started ozempic for sugar control and wants to go for walks. Dgt says she feels like robel is off balance and has a different style of walking now where she lat leans and is in ext. Dgt thinks there is something going on that is causing her to walk differently. Its been the past year that she has had this decline. Dgt saw her fall 3 times, caught her once before she face planted. She has been falling once a month. They are trips each time d/t catching her to, so always forward. She has a fear of stepping up/down a curb. Has SPC but hasn't used. pt reports B knee pain -up a slight incline hurts. It is sporadic. Got injections in B knees tuesday and that has made a lot of difference. Pt had R buttocks pain and lumbar spine and Dr. Garcia did injections and that helped. Now it occ pulls. The walking change has been the past couple years. Its been 5 years since she went for walks ( stopped d/t pain and SOB). Pt used to have issues w/R ankle hurting out of no where and would look like it wanted to turn then got better and the L felt better after. Treatment Goals Patient/Caregiver Goals go for walks PT-OP-C Subjective Start: 12/19/24 08:13 Freq: Status: Active Protocol: Document 12/31/24 09:48 [facility] (Rec: 12/31/24 10:43 [facility] [id number]) OP-PT Subjective Patient Comments Patient Comments Pt reports she has been busy w /visitors so hasn't done her exercises as much PT-OP-D Balance Start: 12/19/24 08:13 Freq: Status: Active Protocol: Document 12/19/24 13:00 [facility] (Rec: 12/19/24 15:22 [facility] [id number]) Balance Tests Warren Balance Test Warren Balance Test Score 44 PT-OP-E Functional Tests Start: 12/19/24 18:22 Freq: Status: Active Protocol: Document 12/19/24 13:00 [facility] (Rec: 12/19/24 18:24 [facility] [id number]) Functional Tests 6 Minute Walk Test Distance 520ft Device Used Gaitbelt Comments 3 min 45 sec max pt could do 30 Second Sit to Stand Test Score 10 Comments silver chair Five Times Sit to Stand Test Score 16 sec Comments silver chair PT-OP-J Posture/Palpation/Skin Start: 12/19/24 08:13 Freq: Status: Active Protocol: Document 12/19/24 13:00 [facility] (Rec: 12/19/24 18:37 [facility] [id number]) Posture Evaluation Roxie Postural Classification System Roxie Postural Classifications Posterior/Anterior PT-OP-L Special Tests Start: 12/19/24 08:13 Freq: Status: Active Protocol: Document 12/19/24 13:00 [facility] (Rec: 12/19/24 15:22 [facility] [id number]) Special Tests Other Special Tests Special Tests B patellar reflexes WNL; R achilles unable to elicit but pt did not relax, L WNL PT-OP-M Strength Start: 12/19/24 08:13 Freq: Status: Active Protocol: Document 12/19/24 13:00 [facility] (Rec: 12/19/24 15:22 [facility] [id number]) Hip Strength Hip Manual Muscle Testing Right Flexion (L2) 3 Fair Extension (S1) 3- Fair- Abduction 3 Fair External Rotation 3 Fair Internal Rotation 4 Good Left Flexion (L2) 3+ Fair+ Extension (S1) 3 Fair Abduction 3 Fair External Rotation 3 Fair Internal Rotation 4- Good- Knee Strength Knee Manual Muscle Testing Right Flexion (S2) 4- Good- Extension (L3) 4- Good- Left Flexion (S2) 4- Good- Extension (L3) 4- Good- Ankle/Foot Strength Ankle and Foot Manual Muscle Testing Right Dorsiflexion (L4) 4 Good Plantarflexion (S1) 4+ Good+ Comments PF tested seated Left Dorsiflexion (L4) 4 Good Plantarflexion (S1) 4+ Good+ PT-OP-Q Treatments Start: 12/19/24 08:13 Freq: Status: Active Protocol: Document 12/31/24 09:48 [facility] (Rec: 12/31/24 10:43 [facility] [id number]) Gym Equipment Shuttle Recovery Bilateral Squats Resistance 75# (2 navy); 87# (2 navy), 100# (3 navy) Reps/Time 10 ea weight Therapeutic Exercises Standing Exercises DF/PF Standing Exercise Name DL for ea Side bilateral Equipment Used HEP Reps/Minutes 15 ea Comments cues no leaning fwd/back & rail prn march Side bilateral Resistance L1 around feet Equipment Used 1 rail Reps/Minutes 10 Comments cues posture hip abd Standing Exercise Name HEP review Side bilateral Equipment Used lvl 1 Reps/Minutes 10 ea Comments cues control Neuro Re-Education Treatment Balance Activities tilt board Details 1. fwd/back 2. lat Comments 1. balance ea position 2. tilts ea position step up taps Comments 1. step up x10 B 4in step-rail prn 2. step taps 6 in step x10 B- rail prn hurdles Details 1-2 hands on rail prn Equipment 1# ankle wt Comments 1. fwd recip x6 2. sidestep x2 B PT-OP-T Assessment and Plan Start: 12/19/24 08:13 Freq: Status: Active Protocol: Document 12/31/24 09:48 [facility] (Rec: 12/31/24 10:43 [facility] [id number]) Physical Therapy Assessment Goals sit to stand Impairment 5x in 16 sec Print Line Inspector Goal (LTG) Pt will improve 5x sit to stand to no greater than 13 sec to meet age related norms and dec risk for falls. LTG Duration 03/13 6 min walk Short Term Goal (STG) Pt will be able to complete a 6 min walk test STG Duration 02/01 Alf Goal (LTG) Pt will be able to amb at least 1000ft in 6 min w/o inc pain greater than 2/10 to show improved activity tolerance. LTG Duration 03/13 DGI Impairment 14 Short Term Goal (STG) Pt will score at least 17 on DGI to show dec risk for falls . STG Duration 02/01 Alf Goal (LTG) Pt will score at least 20 on DGI to show dec risk for falls . LTG Duration 03/13 Assessment Summary Assessment pt did well with balance but has difficulty w/lifting her LE with hurdles and other exercises, she was challenged by doing the step up activities. Physical Therapy Plan Frequency and Duration Frequency of Treatment 2x/Week Duration of treatment (weeks) 12 Plan of Care Start Date 12/19/24 Plan of Care End Date 03/13/25 Next Visit Focus/Plan Next Note Type Treatment Note Next Visit Plan review/advance exercises as needed, work on LE strength and balance.
--- NOTE | 2025-01-02 10:41 | PT.OTN ---
Current Diagnoses Other chronic pain (01/02/25) Pain in right knee (01/02/25) Pain in left knee (01/02/25) Sciatica, right side (01/02/25) Sciatica, left side (01/02/25) Difficulty in walking, not elsewhere classified (01/02/25) Other abnormalities of gait and mobility (01/02/25) Physical Therapy Treatment Note PT-OP-A Visit Information Start: 12/19/24 08:13 Freq: Status: Active Protocol: Document 01/02/25 09:46 [facility] (Rec: 01/02/25 10:40 [facility] [id number]) Out-Patient Physical Therapy Visit Information Visit Information Visit Type Treatment Note Visit Start Time 09:48 Visit Stop Time 10:30 Visit Number 5 Number of BEAD WRAPPER Visits 0 PT-OP-B Current Condition Start: 12/19/24 08:13 Freq: Status: Active Protocol: Document 12/19/24 13:00 [facility] (Rec: 12/19/24 15:22 [facility] [id number]) Current Condition History of Current Condition Current Complaints balance, weakness, difficulty in walking History of Current Condition Pt reports she has been tripping and she thinks it is the shoes. She is touching things to help w/balance. She has recently started ozempic for sugar control and wants to go for walks. Dgt says she feels like robel is off balance and has a different style of walking now where she lat leans and is in ext. Dgt thinks there is something going on that is causing her to walk differently. Its been the past year that she has had this decline. Dgt saw her fall 3 times, caught her once before she face planted. She has been falling once a month. They are trips each time d/t catching her to, so always forward. She has a fear of stepping up/down a curb. Has SPC but hasn't used. pt reports B knee pain -up a slight incline hurts. It is sporadic. Got injections in B knees tuesday and that has made a lot of difference. Pt had R buttocks pain and lumbar spine and Dr. Garcia did injections and that helped. Now it occ pulls. The walking change has been the past couple years. Its been 5 years since she went for walks ( stopped d/t pain and SOB). Pt used to have issues w/R ankle hurting out of no where and would look like it wanted to turn then got better and the L felt better after. Treatment Goals Patient/Caregiver Goals go for walks PT-OP-C Subjective Start: 12/19/24 08:13 Freq: Status: Active Protocol: Document 01/02/25 09:46 [facility] (Rec: 01/02/25 10:40 [facility] [id number]) OP-PT Subjective Patient Comments Patient Comments pt reports leaves for vacation soon PT-OP-D Balance Start: 12/19/24 08:13 Freq: Status: Active Protocol: Document 12/19/24 13:00 [facility] (Rec: 12/19/24 15:22 [facility] [id number]) Balance Tests Warren Balance Test Warren Balance Test Score 44 PT-OP-E Functional Tests Start: 12/19/24 18:22 Freq: Status: Active Protocol: Document 12/19/24 13:00 [facility] (Rec: 12/19/24 18:24 [facility] [id number]) Functional Tests 6 Minute Walk Test Distance 520ft Device Used Gaitbelt Comments 3 min 45 sec max pt could do 30 Second Sit to Stand Test Score 10 Comments silver chair Five Times Sit to Stand Test Score 16 sec Comments silver chair PT-OP-J Posture/Palpation/Skin Start: 12/19/24 08:13 Freq: Status: Active Protocol: Document 12/19/24 13:00 [facility] (Rec: 12/19/24 18:37 [facility] [id number]) Posture Evaluation Roxie Postural Classification System Roxie Postural Classifications Posterior/Anterior PT-OP-L Special Tests Start: 12/19/24 08:13 Freq: Status: Active Protocol: Document 12/19/24 13:00 [facility] (Rec: 12/19/24 15:22 [facility] [id number]) Special Tests Other Special Tests Special Tests B patellar reflexes WNL; R achilles unable to elicit but pt did not relax, L WNL PT-OP-M Strength Start: 12/19/24 08:13 Freq: Status: Active Protocol: Document 12/19/24 13:00 [facility] (Rec: 12/19/24 15:22 [facility] [id number]) Hip Strength Hip Manual Muscle Testing Right Flexion (L2) 3 Fair Extension (S1) 3- Fair- Abduction 3 Fair External Rotation 3 Fair Internal Rotation 4 Good Left Flexion (L2) 3+ Fair+ Extension (S1) 3 Fair Abduction 3 Fair External Rotation 3 Fair Internal Rotation 4- Good- Knee Strength Knee Manual Muscle Testing Right Flexion (S2) 4- Good- Extension (L3) 4- Good- Left Flexion (S2) 4- Good- Extension (L3) 4- Good- Ankle/Foot Strength Ankle and Foot Manual Muscle Testing Right Dorsiflexion (L4) 4 Good Plantarflexion (S1) 4+ Good+ Comments PF tested seated Left Dorsiflexion (L4) 4 Good Plantarflexion (S1) 4+ Good+ PT-OP-Q Treatments Start: 12/19/24 08:13 Freq: Status: Active Protocol: Document 01/02/25 09:46 [facility] (Rec: 01/02/25 10:40 [facility] [id number]) Gym Equipment Shuttle Recovery Bilateral Squats Resistance 100# (4 navy), 112# (4 navy) Reps/Time 12 ea weight Therapeutic Exercises Sitting Exercises hip ER Sitting Exercise Name HEP Side bilateral Equipment Used L3 Reps/Minutes 1 min hold Comments verbal cues march Sitting Exercise Name back off chair Side bilateral Reps/Minutes 20 Standing Exercises resisted walks Standing Exercise Name 1. sidesteps 2. fwd monster walk/back walk Side bilateral Reps/Minutes 20ft ea DF/PF Standing Exercise Name DL for ea Side bilateral Equipment Used HEP Reps/Minutes 20 ea Comments cues no leaning fwd/back & rail prn Neuro Re-Education Treatment Balance Activities tilt board Details 1. fwd/back 2. lat Comments 1. balance ea position EC 2. tilts ea position step up taps Comments 1. step up x8 B 4in step-rail prn 2. step taps 6 in step x12 B- rail prn hurdles Details rail prn- more w/lifting RLE Comments 1. fwd recip x8 2. sidestep x2 B SLS Details B trials Tandem Details rail prn Comments 1. B stance trials 30 sec X 2 HEP review 2 fwd walk 2x15ft PT-OP-T Assessment and Plan Start: 12/19/24 08:13 Freq: Status: Active Protocol: Document 01/02/25 09:46 [facility] (Rec: 01/02/25 10:40 [facility] [id number]) Physical Therapy Assessment Goals sit to stand Impairment 5x in 16 sec Prison Goal (LTG) Pt will improve 5x sit to stand to no greater than 13 sec to meet age related norms and dec risk for falls. LTG Duration 03/13 6 min walk Short Term Goal (STG) Pt will be able to complete a 6 min walk test STG Duration 02/01 Prison Goal (LTG) Pt will be able to amb at least 1000ft in 6 min w/o inc pain greater than 2/10 to show improved activity tolerance. LTG Duration 03/13 DGI Impairment 14 Short Term Goal (STG) Pt will score at least 17 on DGI to show dec risk for falls . STG Duration 02/01 Prison Goal (LTG) Pt will score at least 20 on DGI to show dec risk for falls . LTG Duration 03/13 Assessment Summary Assessment Pt did better w/balance exercises and had less UE use. She was able to do more resistance w/leg press also. Physical Therapy Plan Frequency and Duration Frequency of Treatment 2x/Week Duration of treatment (weeks) 12 Plan of Care Start Date 12/19/24 Plan of Care End Date 03/13/25 Next Visit Focus/Plan Next Note Type Progress Note Next Visit Plan review/advance exercises as needed, work on LE strength and balance.
--- NOTE | 2025-01-22 13:53 | PT.OTN ---
Addendum entered and electronically signed by Yasmine Mcghee, PT 01/29/25 08:16: PT direct supervision and direction to student PT Paty David throughout session Original Note: Current Diagnoses Other chronic pain (01/22/25) Pain in right knee (01/22/25) Pain in left knee (01/22/25) Sciatica, right side (01/22/25) Sciatica, left side (01/22/25) Difficulty in walking, not elsewhere classified (01/22/25) Other abnormalities of gait and mobility (01/22/25) Physical Therapy Treatment Note PT-OP-A Visit Information Start: 12/19/24 08:13 Freq: Status: Active Protocol: Document 01/22/25 11:03 GG (Rec: 01/22/25 11:28 GG Laptop) Out-Patient Physical Therapy Visit Information Visit Information Visit Type Progress Note Visit Start Time 09:08 Visit Stop Time 09:48 Visit Number 6 Number of SPORTS COORDINATOR Visits 0 PT-OP-B Current Condition Start: 12/19/24 08:13 Freq: Status: Active Protocol: Document 12/19/24 13:00 [facility] (Rec: 12/19/24 15:22 [facility] [id number]) Current Condition History of Current Condition Current Complaints balance, weakness, difficulty in walking History of Current Condition Pt reports she has been tripping and she thinks it is the shoes. She is touching things to help w/balance. She has recently started ozempic for sugar control and wants to go for walks. Dgt says she feels like robel is off balance and has a different style of walking now where she lat leans and is in ext. Dgt thinks there is something going on that is causing her to walk differently. Its been the past year that she has had this decline. Dgt saw her fall 3 times, caught her once before she face planted. She has been falling once a month. They are trips each time d/t catching her to, so always forward. She has a fear of stepping up/down a curb. Has SPC but hasn't used. pt reports B knee pain -up a slight incline hurts. It is sporadic. Got injections in B knees tuesday and that has made a lot of difference. Pt had R buttocks pain and lumbar spine and Dr. Garcia did injections and that helped. Now it occ pulls. The walking change has been the past couple years. Its been 5 years since she went for walks ( stopped d/t pain and SOB). Pt used to have issues w/R ankle hurting out of no where and would look like it wanted to turn then got better and the L felt better after. Treatment Goals Patient/Caregiver Goals go for walks PT-OP-C Subjective Start: 12/19/24 08:13 Freq: Status: Active Protocol: Document 01/22/25 11:03 GG (Rec: 01/22/25 11:28 GG Laptop) OP-PT Subjective Patient Comments Patient Comments Pt reports that she has started walking outside more w / her 4WW. She brought in a pair of shoes that she thinks may be causing her to catch her toe. PT-OP-D Balance Start: 12/19/24 08:13 Freq: Status: Active Protocol: Document 12/19/24 13:00 [facility] (Rec: 12/19/24 15:22 [facility] [id number]) Balance Tests Warren Balance Test Warren Balance Test Score 44 PT-OP-E Functional Tests Start: 12/19/24 18:22 Freq: Status: Active Protocol: Document 01/22/25 11:03 GG (Rec: 01/22/25 11:28 GG Laptop) Functional Tests 6 Minute Walk Test Distance 862ft Comments stopped at 5:45 d/t fatigue; increased toe catching toward end, SBA Dynamic Gait Index (DGI) Score 15/24 Five Times Sit to Stand Test Score 13 sec PT-OP-J Posture/Palpation/Skin Start: 12/19/24 08:13 Freq: Status: Active Protocol: Document 12/19/24 13:00 [facility] (Rec: 12/19/24 18:37 [facility] [id number]) Posture Evaluation Roxie Postural Classification System Roxie Postural Classifications Posterior/Anterior PT-OP-L Special Tests Start: 12/19/24 08:13 Freq: Status: Active Protocol: Document 12/19/24 13:00 [facility] (Rec: 12/19/24 15:22 [facility] [id number]) Special Tests Other Special Tests Special Tests B patellar reflexes WNL; R achilles unable to elicit but pt did not relax, L WNL PT-OP-M Strength Start: 12/19/24 08:13 Freq: Status: Active Protocol: Document 12/19/24 13:00 [facility] (Rec: 12/19/24 15:22 [facility] [id number]) Hip Strength Hip Manual Muscle Testing Right Flexion (L2) 3 Fair Extension (S1) 3- Fair- Abduction 3 Fair External Rotation 3 Fair Internal Rotation 4 Good Left Flexion (L2) 3+ Fair+ Extension (S1) 3 Fair Abduction 3 Fair External Rotation 3 Fair Internal Rotation 4- Good- Knee Strength Knee Manual Muscle Testing Right Flexion (S2) 4- Good- Extension (L3) 4- Good- Left Flexion (S2) 4- Good- Extension (L3) 4- Good- Ankle/Foot Strength Ankle and Foot Manual Muscle Testing Right Dorsiflexion (L4) 4 Good Plantarflexion (S1) 4+ Good+ Comments PF tested seated Left Dorsiflexion (L4) 4 Good Plantarflexion (S1) 4+ Good+ PT-OP-Q Treatments Start: 12/19/24 08:13 Freq: Status: Active Protocol: Document 01/22/25 11:03 GG (Rec: 01/22/25 11:28 GG Laptop) Therapeutic Exercises Standing Exercises walking Comments performed 6MWT sit to stands Comments 5x Neuro Re-Education Treatment Balance Activities testing Comments DGI step up taps Reps/Duration 20 bilateral Comments step tap on 4 step with weight shift into front leg w/ o rail hurdles Comments 6 hurdles in parallel bars 1. stepping reciprocally (2 laps) 2. step to w/ cueing for high knees and toe lifting for clearance (4 laps) Tandem Details rail prn Reps/Duration B 30 sec Comments initially tried SLS, but was unable to hold for > 2 sec PT-OP-T Assessment and Plan Start: 12/19/24 08:13 Freq: Status: Active Protocol: Document 01/22/25 11:03 GG (Rec: 01/22/25 11:28 GG Laptop) Physical Therapy Assessment Goals sit to stand Impairment 5x in 16 sec Conservation Specialist Goal (LTG) Pt will improve 5x sit to stand to no greater than 13 sec to meet age related norms and dec risk for falls. 01/22 - goal met LTG Duration 7/9 6 min walk Short Term Goal (STG) Pt will be able to complete a 6 min walk test 01/22 - stopped at 5:45 d/t fatigue; no c/o pain STG Duration 02/01 Senior Care Goal (LTG) Pt will be able to amb at least 1000ft in 6 min w/o inc pain greater than 2/10 to show improved activity tolerance. LTG Duration 03/13 DGI Impairment 14 Short Term Goal (STG) Pt will score at least 17 on DGI to show dec risk for falls . 01/22 - scored 15/20 STG Duration 02/01 Conservation Specialist Goal (LTG) Pt will score at least 20 on DGI to show dec risk for falls . LTG Duration 03/13 Assessment Summary Assessment Pt has made good progress toward her goals as seen by her functional testing showing improved endurance and activity tolerance. She continues to have toe catching and dragging when fatigued, which puts her at increased risk of falls. Pt will continue to benefit from skilled PT to improve endurance and LE clearance during ambulation. Provided pt education regarding her concerns about her shoes and about the toe shape that may be contributing to her catching her toe more easily, but also that the toe catching may be more from fatigue. Physical Therapy Plan Frequency and Duration Frequency of Treatment 2x/Week Duration of treatment (weeks) 12 Plan of Care Start Date 12/19/24 Plan of Care End Date 03/13/25 Next Visit Focus/Plan Next Note Type Treatment Note Next Visit Plan review/advance exercises as needed, work on LE strength and balance. consider adding a seated or standing march to work on hip flexion
--- NOTE | 2025-01-22 16:19 | PT.OPPN ---
Addendum entered and electronically signed by Yasmine Mcghee, PT 01/29/25 08:15: PT direct supervision and direction to student PT Paty David throughout session Original Note: Current Diagnoses Other chronic pain (01/22/25) Pain in right knee (01/22/25) Pain in left knee (01/22/25) Sciatica, right side (01/22/25) Sciatica, left side (01/22/25) Difficulty in walking, not elsewhere classified (01/22/25) Other abnormalities of gait and mobility (01/22/25) Physical Therapy Progress Note PT-OP-A Visit Information Start: 12/19/24 08:13 Freq: Status: Active Protocol: Document 01/22/25 11:03 GG (Rec: 01/22/25 11:28 GG Laptop) Out-Patient Physical Therapy Visit Information Visit Information Visit Type Progress Note Visit Start Time 09:08 Visit Stop Time 09:48 Visit Number 6 Number of DATA CONVERSION ANALYST Visits 0 PT-OP-B Current Condition Start: 12/19/24 08:13 Freq: Status: Active Protocol: Document 12/19/24 13:00 [facility] (Rec: 12/19/24 15:22 [facility] [id number]) Current Condition History of Current Condition Current Complaints balance, weakness, difficulty in walking History of Current Condition Pt reports she has been tripping and she thinks it is the shoes. She is touching things to help w/balance. She has recently started ozempic for sugar control and wants to go for walks. Dgt says she feels like robel is off balance and has a different style of walking now where she lat leans and is in ext. Dgt thinks there is something going on that is causing her to walk differently. Its been the past year that she has had this decline. Dgt saw her fall 3 times, caught her once before she face planted. She has been falling once a month. They are trips each time d/t catching her to, so always forward. She has a fear of stepping up/down a curb. Has SPC but hasn't used. pt reports B knee pain -up a slight incline hurts. It is sporadic. Got injections in B knees tuesday and that has made a lot of difference. Pt had R buttocks pain and lumbar spine and Dr. Garcia did injections and that helped. Now it occ pulls. The walking change has been the past couple years. Its been 5 years since she went for walks ( stopped d/t pain and SOB). Pt used to have issues w/R ankle hurting out of no where and would look like it wanted to turn then got better and the L felt better after. Treatment Goals Patient/Caregiver Goals go for walks PT-OP-C Subjective Start: 12/19/24 08:13 Freq: Status: Active Protocol: Document 01/22/25 11:03 GG (Rec: 01/22/25 11:28 GG Laptop) OP-PT Subjective Patient Comments Patient Comments Pt reports that she has started walking outside more w / her 4WW. She brought in a pair of shoes that she thinks may be causing her to catch her toe. PT-OP-D Balance Start: 12/19/24 08:13 Freq: Status: Active Protocol: Document 12/19/24 13:00 [facility] (Rec: 12/19/24 15:22 [facility] [id number]) Balance Tests Warren Balance Test Warren Balance Test Score 44 PT-OP-E Functional Tests Start: 12/19/24 18:22 Freq: Status: Active Protocol: Document 01/22/25 11:03 GG (Rec: 01/22/25 11:28 GG Laptop) Functional Tests 6 Minute Walk Test Distance 862ft Comments stopped at 5:45 d/t fatigue; increased toe catching toward end, SBA Dynamic Gait Index (DGI) Score 15/24 Five Times Sit to Stand Test Score 13 sec PT-OP-J Posture/Palpation/Skin Start: 12/19/24 08:13 Freq: Status: Active Protocol: Document 12/19/24 13:00 [facility] (Rec: 12/19/24 18:37 [facility] [id number]) Posture Evaluation Roxie Postural Classification System Roxie Postural Classifications Posterior/Anterior PT-OP-L Special Tests Start: 12/19/24 08:13 Freq: Status: Active Protocol: Document 12/19/24 13:00 [facility] (Rec: 12/19/24 15:22 [facility] [id number]) Special Tests Other Special Tests Special Tests B patellar reflexes WNL; R achilles unable to elicit but pt did not relax, L WNL PT-OP-M Strength Start: 12/19/24 08:13 Freq: Status: Active Protocol: Document 12/19/24 13:00 [facility] (Rec: 12/19/24 15:22 [facility] [id number]) Hip Strength Hip Manual Muscle Testing Right Flexion (L2) 3 Fair Extension (S1) 3- Fair- Abduction 3 Fair External Rotation 3 Fair Internal Rotation 4 Good Left Flexion (L2) 3+ Fair+ Extension (S1) 3 Fair Abduction 3 Fair External Rotation 3 Fair Internal Rotation 4- Good- Knee Strength Knee Manual Muscle Testing Right Flexion (S2) 4- Good- Extension (L3) 4- Good- Left Flexion (S2) 4- Good- Extension (L3) 4- Good- Ankle/Foot Strength Ankle and Foot Manual Muscle Testing Right Dorsiflexion (L4) 4 Good Plantarflexion (S1) 4+ Good+ Comments PF tested seated Left Dorsiflexion (L4) 4 Good Plantarflexion (S1) 4+ Good+ PT-OP-T Assessment and Plan Start: 12/19/24 08:13 Freq: Status: Active Protocol: Document 01/22/25 11:03 GG (Rec: 01/22/25 11:28 GG Laptop) Physical Therapy Assessment Goals sit to stand Impairment 5x in 16 sec Jail Goal (LTG) Pt will improve 5x sit to stand to no greater than 13 sec to meet age related norms and dec risk for falls. 01/22 - goal met LTG Duration 03/13 6 min walk Short Term Goal (STG) Pt will be able to complete a 6 min walk test 01/22 - stopped at 5:45 d/t fatigue; no c/o pain STG Duration 02/01 Direct Marketing Specialist Goal (LTG) Pt will be able to amb at least 1000ft in 6 min w/o inc pain greater than 2/10 to show improved activity tolerance. LTG Duration 03/13 DGI Impairment 14 Short Term Goal (STG) Pt will score at least 17 on DGI to show dec risk for falls . 01/22 - scored 15/20 STG Duration 02/01 Jail Goal (LTG) Pt will score at least 20 on DGI to show dec risk for falls . LTG Duration 03/13 Assessment Summary Assessment Pt has made good progress toward her goals as seen by her functional testing showing improved endurance and activity tolerance. She continues to have toe catching and dragging when fatigued, which puts her at increased risk of falls. Pt will continue to benefit from skilled PT to improve endurance and LE clearance during ambulation. Provided pt education regarding her concerns about her shoes and about the toe shape that may be contributing to her catching her toe more easily, but also that the toe catching may be more from fatigue. Physical Therapy Plan Frequency and Duration Frequency of Treatment 2x/Week Duration of treatment (weeks) 12 Plan of Care Start Date 12/19/24 Plan of Care End Date 03/13/25 Next Visit Focus/Plan Next Note Type Treatment Note Next Visit Plan review/advance exercises as needed, work on LE strength and balance. consider adding a seated or standing march to work on hip flexion
--- NOTE | 2025-01-30 15:48 | PT.OTN ---
Addendum entered and electronically signed by Yasmine Mcghee PT 02/04/25 09:22: PT direct supervision and direction to student PT Paty David throughout session Original Note: Current Diagnoses Other chronic pain (01/30/25) Pain in right knee (01/30/25) Pain in left knee (01/30/25) Sciatica, right side (01/30/25) Sciatica, left side (01/30/25) Difficulty in walking, not elsewhere classified (01/30/25) Other abnormalities of gait and mobility (01/30/25) Physical Therapy Treatment Note PT-OP-A Visit Information Start: 12/19/24 08:13 Freq: Status: Active Protocol: Document 01/30/25 14:56 GG (Rec: 01/30/25 15:23 GG Laptop) Out-Patient Physical Therapy Visit Information Visit Information Visit Type Treatment Note Visit Start Time 11:34 Visit Stop Time 12:17 Visit Number 7 Number of JOINT MACHINE OPERATOR Visits 0 PT-OP-B Current Condition Start: 12/19/24 08:13 Freq: Status: Active Protocol: Document 12/19/24 13:00 [facility] (Rec: 12/19/24 15:22 [facility] [id number]) Current Condition History of Current Condition Current Complaints balance, weakness, difficulty in walking History of Current Condition Pt reports she has been tripping and she thinks it is the shoes. She is touching things to help w/balance. She has recently started ozempic for sugar control and wants to go for walks. Dgt says she feels like robel is off balance and has a different style of walking now where she lat leans and is in ext. Dgt thinks there is something going on that is causing her to walk differently. Its been the past year that she has had this decline. Dgt saw her fall 3 times, caught her once before she face planted. She has been falling once a month. They are trips each time d/t catching her to, so always forward. She has a fear of stepping up/down a curb. Has SPC but hasn't used. pt reports B knee pain -up a slight incline hurts. It is sporadic. Got injections in B knees tuesday and that has made a lot of difference. Pt had R buttocks pain and lumbar spine and Dr. Garcia did injections and that helped. Now it occ pulls. The walking change has been the past couple years. Its been 5 years since she went for walks ( stopped d/t pain and SOB). Pt used to have issues w/R ankle hurting out of no where and would look like it wanted to turn then got better and the L felt better after. Treatment Goals Patient/Caregiver Goals go for walks PT-OP-C Subjective Start: 12/19/24 08:13 Freq: Status: Active Protocol: Document 01/30/25 14:56 GG (Rec: 01/30/25 15:23 GG Laptop) OP-PT Subjective Patient Comments Patient Comments Pt presents to appt today w/ no AD and walking well. She went to the grocery store prior to appt and said she felt good walking around and doesn't report catching her toe at all. PT-OP-D Balance Start: 12/19/24 08:13 Freq: Status: Active Protocol: Document 12/19/24 13:00 [facility] (Rec: 12/19/24 15:22 [facility] [id number]) Balance Tests Warren Balance Test Warren Balance Test Score 44 PT-OP-E Functional Tests Start: 12/19/24 18:22 Freq: Status: Active Protocol: Document 01/22/25 11:03 GG (Rec: 01/22/25 11:28 GG Laptop) Functional Tests 6 Minute Walk Test Distance 862ft Comments stopped at 5:45 d/t fatigue; increased toe catching toward end, SBA Dynamic Gait Index (DGI) Score 15/24 Five Times Sit to Stand Test Score 13 sec PT-OP-J Posture/Palpation/Skin Start: 12/19/24 08:13 Freq: Status: Active Protocol: Document 12/19/24 13:00 [facility] (Rec: 12/19/24 18:37 [facility] [id number]) Posture Evaluation Roxie Postural Classification System Roxie Postural Classifications Posterior/Anterior PT-OP-L Special Tests Start: 12/19/24 08:13 Freq: Status: Active Protocol: Document 12/19/24 13:00 [facility] (Rec: 12/19/24 15:22 [facility] [id number]) Special Tests Other Special Tests Special Tests B patellar reflexes WNL; R achilles unable to elicit but pt did not relax, L WNL PT-OP-M Strength Start: 12/19/24 08:13 Freq: Status: Active Protocol: Document 12/19/24 13:00 [facility] (Rec: 12/19/24 15:22 [facility] [id number]) Hip Strength Hip Manual Muscle Testing Right Flexion (L2) 3 Fair Extension (S1) 3- Fair- Abduction 3 Fair External Rotation 3 Fair Internal Rotation 4 Good Left Flexion (L2) 3+ Fair+ Extension (S1) 3 Fair Abduction 3 Fair External Rotation 3 Fair Internal Rotation 4- Good- Knee Strength Knee Manual Muscle Testing Right Flexion (S2) 4- Good- Extension (L3) 4- Good- Left Flexion (S2) 4- Good- Extension (L3) 4- Good- Ankle/Foot Strength Ankle and Foot Manual Muscle Testing Right Dorsiflexion (L4) 4 Good Plantarflexion (S1) 4+ Good+ Comments PF tested seated Left Dorsiflexion (L4) 4 Good Plantarflexion (S1) 4+ Good+ PT-OP-Q Treatments Start: 12/19/24 08:13 Freq: Status: Active Protocol: Document 01/30/25 14:56 GG (Rec: 01/30/25 15:23 GG Laptop) Therapeutic Exercises Standing Exercises steps Standing Exercise Name 1. step ups w/ 4 step 2. lat step downs w/ 2 step Side bilateral Reps/Minutes x20 ea Comments cues for weight shift and standing closer w/ step ups; cues for soft knee hip ext Side bilateral Reps/Minutes 2x10 Comments rail; cue for smaller range march Side bilateral Reps/Minutes 2x10 Comments rail prn; cue for core activation hip abd Side bilateral Reps/Minutes 2x10 ea sit to stands Reps/Minutes 10x Comments to chair Neuro Re-Education Treatment Balance Activities hip hikes Details pressing ball into wall w/ hip then rolling up/down wall Reps/Duration x15 B Comments cues for movement and leg positioning hurdles Equipment 4 hurdles Reps/Duration 6 laps ea Comments 1. stepping reciprocally 2. side stepping cues for high knees and stepping over not around Tandem Details rail prn Equipment foam Reps/Duration B 45 sec Comments semi-tandem PT-OP-T Assessment and Plan Start: 12/19/24 08:13 Freq: Status: Active Protocol: Document 01/30/25 14:56 GG (Rec: 01/30/25 15:23 GG Laptop) Physical Therapy Assessment Goals sit to stand Impairment 5x in 16 sec Game Advisor Goal (LTG) Pt will improve 5x sit to stand to no greater than 13 sec to meet age related norms and dec risk for falls. 01/22 - goal met LTG Duration 03/13 6 min walk Short Term Goal (STG) Pt will be able to complete a 6 min walk test 01/22 - stopped at 5:45 d/t fatigue; no c/o pain STG Duration 02/01 Game Advisor Goal (LTG) Pt will be able to amb at least 1000ft in 6 min w/o inc pain greater than 2/10 to show improved activity tolerance. LTG Duration 03/13 DGI Impairment 14 Short Term Goal (STG) Pt will score at least 17 on DGI to show dec risk for falls . 01/22 - scored 15/20 STG Duration 02/01 [facility] Goal (LTG) Pt will score at least 20 on DGI to show dec risk for falls . LTG Duration 03/13 Assessment Summary Assessment Pt was able to do standing exercises for the duration of appt today even after walking at the store prior to appt showing improved standing endurance. Pt performs DL exercises well, but shows signs of poor coordination and strength during SL activities and maintaining level hips, which requires greater cueing for positioning and overall movement pattern. Physical Therapy Plan Frequency and Duration Frequency of Treatment 2x/Week Duration of treatment (weeks) 12 Plan of Care Start Date 12/19/24 Plan of Care End Date 03/13/25 Next Visit Focus/Plan Next Note Type Treatment Note Next Visit Plan review/advance exercises as needed, work on LE strength and balance. cont w standing exercises. SL activities to challenge hip stabilizers
--- NOTE | 2025-02-01 14:12 | PT.OTN ---
Current Diagnoses Other chronic pain (02/01/25) Pain in right knee (02/01/25) Pain in left knee (02/01/25) Sciatica, right side (02/01/25) Sciatica, left side (02/01/25) Difficulty in walking, not elsewhere classified (02/01/25) Other abnormalities of gait and mobility (02/01/25) Physical Therapy Treatment Note PT-OP-A Visit Information Start: 12/19/24 08:13 Freq: Status: Active Protocol: Document 02/01/25 12:59 AB (Rec: 02/01/25 13:49 AB Laptop) Out-Patient Physical Therapy Visit Information Visit Information Visit Type Treatment Note Visit Start Time 13:02 Visit Stop Time 13:47 Visit Number 8 (PN by 02/21/2025) Number of NURSES MEDICAL ASSISTANTS PHLEBOTOMISTS Visits 1 PT-OP-B Current Condition Start: 12/19/24 08:13 Freq: Status: Active Protocol: Document 12/19/24 13:00 [facility] (Rec: 12/19/24 15:22 [facility] [id number]) Current Condition History of Current Condition Current Complaints balance, weakness, difficulty in walking History of Current Condition Pt reports she has been tripping and she thinks it is the shoes. She is touching things to help w/balance. She has recently started ozempic for sugar control and wants to go for walks. Dgt says she feels like robel is off balance and has a different style of walking now where she lat leans and is in ext. Dgt thinks there is something going on that is causing her to walk differently. Its been the past year that she has had this decline. Dgt saw her fall 3 times, caught her once before she face planted. She has been falling once a month. They are trips each time d/t catching her to, so always forward. She has a fear of stepping up/down a curb. Has SPC but hasn't used. pt reports B knee pain -up a slight incline hurts. It is sporadic. Got injections in B knees tuesday and that has made a lot of difference. Pt had R buttocks pain and lumbar spine and Dr. Garcia did injections and that helped. Now it occ pulls. The walking change has been the past couple years. Its been 5 years since she went for walks ( stopped d/t pain and SOB). Pt used to have issues w/R ankle hurting out of no where and would look like it wanted to turn then got better and the L felt better after. Treatment Goals Patient/Caregiver Goals go for walks PT-OP-C Subjective Start: 12/19/24 08:13 Freq: Status: Active Protocol: Document 02/01/25 12:59 AB (Rec: 02/01/25 13:49 AB Laptop) OP-PT Subjective Patient Comments Patient Comments Patient reports she fell in the kitchen earlier today, landed on buttocks, reports some discomfort L knee, Patient did not make MD aware. PT, Tiffany Duong in to assess patient, patient cleared to participate in physical therapy today. SLS 1 sec on L 3 sec L without UE use without shoes, without sketchers in place, less than one second each LE with sketchers in place PT-OP-D Balance Start: 12/19/24 08:13 Freq: Status: Active Protocol: Document 12/19/24 13:00 [facility] (Rec: 12/19/24 15:22 [facility] [id number]) Balance Tests Warren Balance Test Warren Balance Test Score 44 PT-OP-E Functional Tests Start: 12/19/24 18:22 Freq: Status: Active Protocol: Document 01/22/25 11:03 GG (Rec: 01/22/25 11:28 GG Laptop) Functional Tests 6 Minute Walk Test Distance 862ft Comments stopped at 5:45 d/t fatigue; increased toe catching toward end, SBA Dynamic Gait Index (DGI) Score 15/24 Five Times Sit to Stand Test Score 13 sec PT-OP-J Posture/Palpation/Skin Start: 12/19/24 08:13 Freq: Status: Active Protocol: Document 12/19/24 13:00 [facility] (Rec: 12/19/24 18:37 [facility] [id number]) Posture Evaluation Roxie Postural Classification System Roxie Postural Classifications Posterior/Anterior PT-OP-L Special Tests Start: 12/19/24 08:13 Freq: Status: Active Protocol: Document 12/19/24 13:00 [facility] (Rec: 12/19/24 15:22 [facility] [id number]) Special Tests Other Special Tests Special Tests B patellar reflexes WNL; R achilles unable to elicit but pt did not relax, L WNL PT-OP-M Strength Start: 12/19/24 08:13 Freq: Status: Active Protocol: Document 12/19/24 13:00 [facility] (Rec: 12/19/24 15:22 [facility] [id number]) Hip Strength Hip Manual Muscle Testing Right Flexion (L2) 3 Fair Extension (S1) 3- Fair- Abduction 3 Fair External Rotation 3 Fair Internal Rotation 4 Good Left Flexion (L2) 3+ Fair+ Extension (S1) 3 Fair Abduction 3 Fair External Rotation 3 Fair Internal Rotation 4- Good- Knee Strength Knee Manual Muscle Testing Right Flexion (S2) 4- Good- Extension (L3) 4- Good- Left Flexion (S2) 4- Good- Extension (L3) 4- Good- Ankle/Foot Strength Ankle and Foot Manual Muscle Testing Right Dorsiflexion (L4) 4 Good Plantarflexion (S1) 4+ Good+ Comments PF tested seated Left Dorsiflexion (L4) 4 Good Plantarflexion (S1) 4+ Good+ PT-OP-Q Treatments Start: 12/19/24 08:13 Freq: Status: Active Protocol: Document 02/01/25 12:59 AB (Rec: 02/01/25 13:49 AB Laptop) Therapeutic Exercises Sitting Exercises hip ER Sitting Exercise Name HEP Side bilateral Equipment Used L4 Reps/Minutes 1 min hold Comments verbal cues Standing Exercises fwd, lat, retro curtsy Standing Exercise Name hands above bars Reps/Minutes X 5 each LE Calf stretches Standing Exercise Name 1. on DANI 2. on stairs Reps/Minutes Gastroc and soleus on DANI and on stairs Comments verbal cues performed with UE use. hip abd Side bilateral Reps/Minutes unable with level 4, good form level 1 band and verbal cues x 15 sit to stands Resistance level one band above knees Reps/Minutes 2 X x10 Comments to chair Neuro Re-Education Treatment Balance Activities Tandem Details rail prn Comments fwd and retro CGA X 2 each PT-OP-T Assessment and Plan Start: 12/19/24 08:13 Freq: Status: Active Protocol: Document 02/01/25 12:59 AB (Rec: 02/01/25 13:49 AB Laptop) Physical Therapy Assessment Goals sit to stand Impairment 5x in 16 sec Manager Database Goal (LTG) Pt will improve 5x sit to stand to no greater than 13 sec to meet age related norms and dec risk for falls. 01/22 - goal met LTG Duration 03/13 6 min walk Short Term Goal (STG) Pt will be able to complete a 6 min walk test 01/22 - stopped at 5:45 d/t fatigue; no c/o pain STG Duration 02/01 Jail Goal (LTG) Pt will be able to amb at least 1000ft in 6 min w/o inc pain greater than 2/10 to show improved activity tolerance. LTG Duration 03/13 DGI Impairment 14 Short Term Goal (STG) Pt will score at least 17 on DGI to show dec risk for falls . 01/22 - scored 15/20 STG Duration 02/01 Manager Database Goal (LTG) Pt will score at least 20 on DGI to show dec risk for falls . LTG Duration 03/13 Assessment Summary Assessment Patient reports she doesn't feel much worse end of session . Patient made aware single leg stance is decreased when wearing her sketchers compared to shoeless. Physical Therapy Plan Frequency and Duration Frequency of Treatment 2x/Week Duration of treatment (weeks) 12 Plan of Care Start Date 12/19/24 Plan of Care End Date 03/13/25 Next Visit Focus/Plan Next Note Type Treatment Note Next Visit Plan review/advance exercises as needed, work on LE strength and balance. cont w standing exercises. SL activities to challenge hip stabilizers
--- NOTE | 2025-02-04 12:55 | PT.OTN ---
Current Diagnoses Other chronic pain (02/04/25) Pain in right knee (02/04/25) Pain in left knee (02/04/25) Sciatica, right side (02/04/25) Sciatica, left side (02/04/25) Difficulty in walking, not elsewhere classified (02/04/25) Other abnormalities of gait and mobility (02/04/25) Physical Therapy Treatment Note PT-OP-A Visit Information Start: 12/19/24 08:13 Freq: Status: Active Protocol: Document 02/04/25 09:07 AB (Rec: 02/04/25 11:13 AB Laptop) Out-Patient Physical Therapy Visit Information Visit Information Visit Type Treatment Note Visit Start Time 09:07 Visit Stop Time 09:48 Visit Number 9 Number of AIR QUALITY ENGINEER Visits 2 PT-OP-B Current Condition Start: 12/19/24 08:13 Freq: Status: Active Protocol: Document 12/19/24 13:00 [facility] (Rec: 12/19/24 15:22 [facility] [id number]) Current Condition History of Current Condition Current Complaints balance, weakness, difficulty in walking History of Current Condition Pt reports she has been tripping and she thinks it is the shoes. She is touching things to help w/balance. She has recently started ozempic for sugar control and wants to go for walks. Dgt says she feels like robel is off balance and has a different style of walking now where she lat leans and is in ext. Dgt thinks there is something going on that is causing her to walk differently. Its been the past year that she has had this decline. Dgt saw her fall 3 times, caught her once before she face planted. She has been falling once a month. They are trips each time d/t catching her to, so always forward. She has a fear of stepping up/down a curb. Has SPC but hasn't used. pt reports B knee pain -up a slight incline hurts. It is sporadic. Got injections in B knees tuesday and that has made a lot of difference. Pt had R buttocks pain and lumbar spine and Dr. Garcia did injections and that helped. Now it occ pulls. The walking change has been the past couple years. Its been 5 years since she went for walks ( stopped d/t pain and SOB). Pt used to have issues w/R ankle hurting out of no where and would look like it wanted to turn then got better and the L felt better after. Treatment Goals Patient/Caregiver Goals go for walks PT-OP-C Subjective Start: 12/19/24 08:13 Freq: Status: Active Protocol: Document 02/04/25 09:07 AB (Rec: 02/04/25 11:13 AB Laptop) OP-PT Subjective Patient Comments Patient Comments Patient reports she is wearing different shoes today/ shoes with laces vs sketchers. Patient reports the shoes are harder. SLS without UE use L 3 sec Right leg less than one sec PT-OP-D Balance Start: 12/19/24 08:13 Freq: Status: Active Protocol: Document 12/19/24 13:00 [facility] (Rec: 12/19/24 15:22 [facility] [id number]) Balance Tests Warren Balance Test Warren Balance Test Score 44 PT-OP-E Functional Tests Start: 12/19/24 18:22 Freq: Status: Active Protocol: Document 01/22/25 11:03 GG (Rec: 01/22/25 11:28 GG Laptop) Functional Tests 6 Minute Walk Test Distance 862ft Comments stopped at 5:45 d/t fatigue; increased toe catching toward end, SBA Dynamic Gait Index (DGI) Score 15/24 Five Times Sit to Stand Test Score 13 sec PT-OP-J Posture/Palpation/Skin Start: 12/19/24 08:13 Freq: Status: Active Protocol: Document 12/19/24 13:00 [facility] (Rec: 12/19/24 18:37 [facility] [id number]) Posture Evaluation Roxie Postural Classification System Roxie Postural Classifications Posterior/Anterior PT-OP-L Special Tests Start: 12/19/24 08:13 Freq: Status: Active Protocol: Document 12/19/24 13:00 [facility] (Rec: 12/19/24 15:22 [facility] [id number]) Special Tests Other Special Tests Special Tests B patellar reflexes WNL; R achilles unable to elicit but pt did not relax, L WNL PT-OP-M Strength Start: 12/19/24 08:13 Freq: Status: Active Protocol: Document 12/19/24 13:00 [facility] (Rec: 12/19/24 15:22 [facility] [id number]) Hip Strength Hip Manual Muscle Testing Right Flexion (L2) 3 Fair Extension (S1) 3- Fair- Abduction 3 Fair External Rotation 3 Fair Internal Rotation 4 Good Left Flexion (L2) 3+ Fair+ Extension (S1) 3 Fair Abduction 3 Fair External Rotation 3 Fair Internal Rotation 4- Good- Knee Strength Knee Manual Muscle Testing Right Flexion (S2) 4- Good- Extension (L3) 4- Good- Left Flexion (S2) 4- Good- Extension (L3) 4- Good- Ankle/Foot Strength Ankle and Foot Manual Muscle Testing Right Dorsiflexion (L4) 4 Good Plantarflexion (S1) 4+ Good+ Comments PF tested seated Left Dorsiflexion (L4) 4 Good Plantarflexion (S1) 4+ Good+ PT-OP-Q Treatments Start: 12/19/24 08:13 Freq: Status: Active Protocol: Document 02/04/25 09:07 AB (Rec: 02/04/25 11:13 AB Laptop) Gym Equipment Shuttle Balance normal AARON Details normal stance, no hands to one hand Comments 3 min Therapeutic Exercises Sitting Exercises hip ER Sitting Exercise Name HEP Side bilateral Equipment Used L4 Reps/Minutes 1 min hold, X 15 without hold Comments verbal cues Standing Exercises fwd, lat, retro curtsy Standing Exercise Name hands above bars Reps/Minutes X 4 each LE Calf stretches Standing Exercise Name 1. on DANI Reps/Minutes Gastroc and soleus on DANI 60 seconds Comments verbal cues performed with UE use. hip ext Side bilateral Resistance level 2 band above knees Reps/Minutes X 15 Comments rail; cue for smaller range hip abd Side bilateral Resistance level 2 band Reps/Minutes level 2 band above knees X 15 sit to stands Resistance level 2 band above knees Reps/Minutes 2 X x10 Comments to chair Neuro Re-Education Treatment Balance Activities hurdles Equipment 6hurdles Reps/Duration 6 laps ea Comments 1. stepping reciprocally CGA SLS Details B trials Reps/Duration CGA Tandem Details rail prn Comments fwd CGA X 6 each PT-OP-T Assessment and Plan Start: 12/19/24 08:13 Freq: Status: Active Protocol: Document 02/04/25 09:07 AB (Rec: 02/04/25 11:13 AB Laptop) Physical Therapy Assessment Goals sit to stand Impairment 5x in 16 sec Group Home Goal (LTG) Pt will improve 5x sit to stand to no greater than 13 sec to meet age related norms and dec risk for falls. 01/22 - goal met LTG Duration 03/13 6 min walk Short Term Goal (STG) Pt will be able to complete a 6 min walk test 01/22 - stopped at 5:45 d/t fatigue; no c/o pain STG Duration 02/01 Group Home Goal (LTG) Pt will be able to amb at least 1000ft in 6 min w/o inc pain greater than 2/10 to show improved activity tolerance. LTG Duration 03/13 DGI Impairment 14 Short Term Goal (STG) Pt will score at least 17 on DGI to show dec risk for falls . 01/22 - scored 15/20 STG Duration 02/01 Group Home Goal (LTG) Pt will score at least 20 on DGI to show dec risk for falls . LTG Duration 03/13 Assessment Summary Assessment Patient reports having no pain end of session progressed to level 2 band for standing exercises for hip ext, abd and sit to stand Physical Therapy Plan Frequency and Duration Frequency of Treatment 2x/Week Duration of treatment (weeks) 12 Plan of Care Start Date 12/19/24 Plan of Care End Date 03/13/25 Next Visit Focus/Plan Next Note Type Treatment Note Next Visit Plan review/advance exercises as needed, work on LE strength and balance. cont w standing exercises. SL activities to challenge hip stabilizers
--- NOTE | 2025-02-04 15:35 | PT-IP ANOTE ---
01/30/25 Pt reported to have a fall at home today prior to therapy - she states due to L foot catching. Pt reports no injury from fall. Assessed gait pattern during ambulation with Sketchers on - pt appear to have hip ext rot with decreased knee flex and a dorsiflex lag. Assessed feet with shoes on with determination that Sketchers shoes provide excessive cushioning which may be allowing these lags. Balance was assessed with and without shoes and determined that balance is decreased while wearing Sketchers. Pt advised to try different footwear and will be reassessed for falls on next visit.
--- NOTE | 2025-02-06 18:32 | PT.OTN ---
Addendum entered and electronically signed by Yasmine Mcghee, PT 02/07/25 09:30: PT direct supervision and direction to student PT Paty David throughout session Original Note: Current Diagnoses Other chronic pain (02/06/25) Pain in right knee (02/06/25) Pain in left knee (02/06/25) Sciatica, right side (02/06/25) Sciatica, left side (02/06/25) Difficulty in walking, not elsewhere classified (02/06/25) Other abnormalities of gait and mobility (02/06/25) Physical Therapy Treatment Note PT-OP-A Visit Information Start: 12/19/24 08:13 Freq: Status: Active Protocol: Document 02/06/25 12:22 GG (Rec: 02/06/25 12:40 GG [id number]) Out-Patient Physical Therapy Visit Information Visit Information Visit Type Treatment Note Visit Start Time 10:48 Visit Stop Time 11:32 Visit Number 10 Number of COMPOUND FILLER Visits 0 PT-OP-B Current Condition Start: 12/19/24 08:13 Freq: Status: Active Protocol: Document 12/19/24 13:00 LR (Rec: 12/19/24 15:22 [facility] [id number]) Current Condition History of Current Condition Current Complaints balance, weakness, difficulty in walking History of Current Pt reports she has been tripping and she thinks it is Condition the shoes. She is touching things to help w/balance. She has recently started ozempic for sugar control and wants to go for walks. Dgt says she feels like robel is off balance and has a different style of walking now where she lat leans and is in ext. Dgt thinks there is something going on that is causing her to walk differently. Its been the past year that she has had this decline. Dgt saw her fall 3 times, caught her once before she face planted. She has been falling once a month. They are trips each time d/t catching her to, so always forward. She has a fear of stepping up/down a curb. Has SPC but hasn't used. pt reports B knee pain - up a slight incline hurts. It is sporadic. Got injections in B knees tuesday and that has made a lot of difference. Pt had R buttocks pain and lumbar spine and Dr. Garcia did injections and that helped. Now it occ pulls. The walking change has been the past couple years. Its been 5 years since she went for walks ( stopped d/t pain and SOB). Pt used to have issues w/R ankle hurting out of no where and would look like it wanted to turn then got better and the L felt better after. Treatment Goals Patient/Caregiver go for walks Goals PT-OP-C Subjective Start: 12/19/24 08:13 Freq: Status: Active Protocol: Document 02/06/25 12:22 GG (Rec: 02/06/25 12:40 GG [id number]) OP-PT Subjective Patient Comments Patient Comments Pt reports that she recovered from fall and notes no pain or difficulty moving as a result from the fall. Comments that she is planning on going to buy new shoes . PT-OP-D Balance Start: 12/19/24 08:13 Freq: Status: Active Protocol: Document 12/19/24 13:00 [facility] (Rec: 12/19/24 15:22 [facility] [id number]) Balance Tests Warren Balance Test Warren Balance Test 44 Score PT-OP-E Functional Tests Start: 12/19/24 18:22 Freq: Status: Active Protocol: Document 01/22/25 11:03 GG (Rec: 01/22/25 11:28 GG Laptop) Functional Tests 6 Minute Walk Test Distance 862ft Comments stopped at 5:45 d/t fatigue; increased toe catching toward end, SBA Dynamic Gait Index (DGI) Score 15/24 Five Times Sit to Stand Test Score 13 sec PT-OP-J Posture/Palpation/Skin Start: 12/19/24 08:13 Freq: Status: Active Protocol: Document 12/19/24 13:00 [facility] (Rec: 12/19/24 18:37 [facility] [id number]) Posture Evaluation Roxie Postural Classification System Roxie Postural Posterior/Anterior Classifications PT-OP-L Special Tests Start: 12/19/24 08:13 Freq: Status: Active Protocol: Document 12/19/24 13:00 [facility] (Rec: 12/19/24 15:22 [facility] [id number]) Special Tests Other Special Tests Special Tests B patellar reflexes WNL; R achilles unable to elicit but pt did not relax, L WNL PT-OP-M Strength Start: 12/19/24 08:13 Freq: Status: Active Protocol: Document 12/19/24 13:00 [facility] (Rec: 12/19/24 15:22 [facility] [id number]) Hip Strength Hip Manual Muscle Testing Right Flexion (L2) 3 Fair Extension (S1) 3- Fair- Abduction 3 Fair External Rotation 3 Fair Internal Rotation 4 Good Left Flexion (L2) 3+ Fair+ Extension (S1) 3 Fair Abduction 3 Fair External Rotation 3 Fair Internal Rotation 4- Good- Knee Strength Knee Manual Muscle Testing Right Flexion (S2) 4- Good- Extension (L3) 4- Good- Left Flexion (S2) 4- Good- Extension (L3) 4- Good- Ankle/Foot Strength Ankle and Foot Manual Muscle Testing Right Dorsiflexion (L4) 4 Good Plantarflexion (S1) 4+ Good+ Comments PF tested seated Left Dorsiflexion (L4) 4 Good Plantarflexion (S1) 4+ Good+ PT-OP-Q Treatments Start: 12/19/24 08:13 Freq: Status: Active Protocol: Document 02/06/25 12:22 GG (Rec: 02/06/25 12:40 GG [id number]) Gym Equipment Shuttle Balance normal AARON Details blue clips fwd and lat Reps/Duration 45s ea Comments 1. WBOS 2. NBOS 3. semi-tandem Therapeutic Exercises Sitting Exercises SLR Side bilateral Reps/Minutes 15x w/ 3s hold at top Standing Exercises step over taps Standing Exercise lift leg over single desi, tap heel, then return Name Side bilateral Reps/Minutes 15x Comments cue for toe lift then leg lift toe raises Side bilateral Reps/Minutes 15x Comments against wall; pt ed to have counter in front/side for UE support Calf stretches Standing Exercise off stairs w/ rail use Name Side bilateral Reps/Minutes 45s Comments reviewed positioning that heels will be in air during stretch steps Standing Exercise step ups 4 Name Side bilateral Reps/Minutes 15x ea; alternating hip abd Side bilateral Resistance L1 Reps/Minutes 10x Comments band at ankles; also updated on HEP Neuro Re-Education Treatment Balance Activities tilt board Details fwd/bkwd Reps/Duration 30 sec Comments progressed to shuttle balance hurdles Equipment 6 hurdles Comments 1. reciprocal walking (2 laps) 2. step-to (4 laps) CGA PT-OP-T Assessment and Plan Start: 12/19/24 08:13 Freq: Status: Active Protocol: Document 02/06/25 12:22 GG (Rec: 02/06/25 12:40 GG [id number]) Physical Therapy Assessment Goals sit to stand Impairment 5x in 16 sec Baker Operator Automatic Goal (LTG) Pt will improve 5x sit to stand to no greater than 13 sec to meet age related norms and dec risk for falls. 01/22 - goal met LTG Duration 03/13 6 min walk Short Term Goal (STG Pt will be able to complete a 6 min walk test ) 01/22 - stopped at 5:45 d/t fatigue; no c/o pain STG Duration 02/01 Alf Goal (LTG) Pt will be able to amb at least 1000ft in 6 min w/o inc pain greater than 2/10 to show improved activity tolerance. LTG Duration 03/13 DGI Impairment 14 Short Term Goal (STG Pt will score at least 17 on DGI to show dec risk for ) falls. 01/22 - scored 15/20 STG Duration 02/01 Baker Operator Automatic Goal (LTG) Pt will score at least 20 on DGI to show dec risk for falls. LTG Duration 03/13 Assessment Summary Assessment Pt performed well w/ shuttle balance demonstrating good static balance. Pt cont to catch toe especially once fatigued so incorporated exercises to work on hip flexion and ankle DF and coordinating the toe lift and leg lift during gait. Physical Therapy Plan Frequency and Duration Frequency of 2x/Week Treatment Duration of 12 treatment (weeks) Plan of Care Start 12/19/24 Date Plan of Care End 03/13/25 Date Therapeutic Interventions Therapeutic Balance Training,Gait Training,Home Exercise Program, Interventions Joint Mobilizations,Manual Therapy,Orthotic/Prosthetic Management,Patient/Caregiver Education,Self-Care/Home Management,Soft Tissue Mobilization,Taping,Therapeutic Activities,Therapeutic Exercises,Vestibular Rehabilitation Modalities Cold Pack/Ice Massage,Electric Stimulation,Hot Packs Next Visit Focus/Plan Next Note Type Treatment Note Next Visit Plan review/advance exercises as needed, work on LE strength and balance. cont w standing exercises. SL activities to challenge hip stabilizers, exercises for hip flexors review HEP and make notes on her copy
--- NOTE | 2025-02-14 17:47 | PT.OTN ---
Current Diagnoses Other chronic pain (02/14/25) Pain in right knee (02/14/25) Pain in left knee (02/14/25) Sciatica, right side (02/14/25) Sciatica, left side (02/14/25) Difficulty in walking, not elsewhere classified (02/14/25) Other abnormalities of gait and mobility (02/14/25) Physical Therapy Treatment Note PT-OP-A Visit Information Start: 12/19/24 08:13 Freq: Status: Active Protocol: Document 02/14/25 13:24 AB (Rec: 02/14/25 15:17 AB Laptop) Out-Patient Physical Therapy Visit Information Visit Information Visit Type Treatment Note Visit Note Visit [email or web address]: [email or web address] Visit Start Time 13:48 Visit Stop Time 14:30 Visit Number 11 ( PN due by 02/21/2025) Number of RIGHT OF WAY AGENT Visits 1 PT-OP-B Current Condition Start: 12/19/24 08:13 Freq: Status: Active Protocol: Document 12/19/24 13:00 [facility] (Rec: 12/19/24 15:22 [facility] [id number]) Current Condition History of Current Condition Current Complaints balance, weakness, difficulty in walking History of Current Pt reports she has been tripping and she thinks it is Condition the shoes. She is touching things to help w/balance. She has recently started ozempic for sugar control and wants to go for walks. Dgt says she feels like robel is off balance and has a different style of walking now where she lat leans and is in ext. Dgt thinks there is something going on that is causing her to walk differently. Its been the past year that she has had this decline. Dgt saw her fall 3 times, caught her once before she face planted. She has been falling once a month. They are trips each time d/t catching her to, so always forward. She has a fear of stepping up/down a curb. Has SPC but hasn't used. pt reports B knee pain - up a slight incline hurts. It is sporadic. Got injections in B knees tuesday and that has made a lot of difference. Pt had R buttocks pain and lumbar spine and Dr. Garcia did injections and that helped. Now it occ pulls. The walking change has been the past couple years. Its been 5 years since she went for walks ( stopped d/t pain and SOB). Pt used to have issues w/R ankle hurting out of no where and would look like it wanted to turn then got better and the L felt better after. Treatment Goals Patient/Caregiver go for walks Goals PT-OP-C Subjective Start: 12/19/24 08:13 Freq: Status: Active Protocol: Document 02/14/25 13:24 AB (Rec: 02/14/25 15:17 AB Laptop) OP-PT Subjective Patient Comments Patient Comments Patient reports R sided sciatica pain started yesterday , 4-5 yesterday, today once. Patient reports having no pain start of session. Patient reports she is wearing firmer shoes this session PT-OP-D Balance Start: 12/19/24 08:13 Freq: Status: Active Protocol: Document 12/19/24 13:00 [facility] (Rec: 12/19/24 15:22 [facility] [id number]) Balance Tests Warren Balance Test Warren Balance Test 44 Score PT-OP-E Functional Tests Start: 12/19/24 18:22 Freq: Status: Active Protocol: Document 01/22/25 11:03 GG (Rec: 01/22/25 11:28 GG Laptop) Functional Tests 6 Minute Walk Test Distance 862ft Comments stopped at 5:45 d/t fatigue; increased toe catching toward end, SBA Dynamic Gait Index (DGI) Score 15/24 Five Times Sit to Stand Test Score 13 sec PT-OP-J Posture/Palpation/Skin Start: 12/19/24 08:13 Freq: Status: Active Protocol: Document 12/19/24 13:00 [facility] (Rec: 12/19/24 18:37 [facility] [id number]) Posture Evaluation Roxie Postural Classification System Roxie Postural Posterior/Anterior Classifications PT-OP-L Special Tests Start: 12/19/24 08:13 Freq: Status: Active Protocol: Document 12/19/24 13:00 [facility] (Rec: 12/19/24 15:22 [facility] [id number]) Special Tests Other Special Tests Special Tests B patellar reflexes WNL; R achilles unable to elicit but pt did not relax, L WNL PT-OP-M Strength Start: 12/19/24 08:13 Freq: Status: Active Protocol: Document 12/19/24 13:00 [facility] (Rec: 12/19/24 15:22 [facility] [id number]) Hip Strength Hip Manual Muscle Testing Right Flexion (L2) 3 Fair Extension (S1) 3- Fair- Abduction 3 Fair External Rotation 3 Fair Internal Rotation 4 Good Left Flexion (L2) 3+ Fair+ Extension (S1) 3 Fair Abduction 3 Fair External Rotation 3 Fair Internal Rotation 4- Good- Knee Strength Knee Manual Muscle Testing Right Flexion (S2) 4- Good- Extension (L3) 4- Good- Left Flexion (S2) 4- Good- Extension (L3) 4- Good- Ankle/Foot Strength Ankle and Foot Manual Muscle Testing Right Dorsiflexion (L4) 4 Good Plantarflexion (S1) 4+ Good+ Comments PF tested seated Left Dorsiflexion (L4) 4 Good Plantarflexion (S1) 4+ Good+ PT-OP-Q Treatments Start: 12/19/24 08:13 Freq: Status: Active Protocol: Document 02/14/25 13:24 AB (Rec: 02/14/25 15:17 AB Laptop) Therapeutic Exercises Sitting Exercises piriformis stretch Side bilateral Reps/Minutes 60 sec each LE X 2 pre and post glute med act due to poss stiffness Comments Verbal and visual cues hip ER Sitting Exercise HEP Name Side bilateral Equipment Used L4 Reps/Minutes 1 min hold, X 15 without hold Comments verbal cues Standing Exercises fwd, lat, retro curtsy Standing Exercise * c/o pain and crunching with correct form R LE, Name Reps/Minutes X 5 each LE Comments Increased effort and UE UE R LE due to patient not flexing knee c/o pain Calf stretches Standing Exercise on DANI Name Side bilateral Reps/Minutes 60 sec knees straight knees bent steps Standing Exercise 4 and 6 inch step Name Reps/Minutes X 3-4 R LE Comments reports no pain Neuro Re-Education Treatment Balance Activities foam Details Romberg and tandem Reps/Duration 4-5 min Comments CGA with head turns, eyes closed mat with obst under Reps/Duration X 6 Comments CGA with very minimal assist, near rail step up taps Reps/Duration X 10 bilateral then X10 on foam CGS Comments step tap on 6 step then standing on foam to 6 inch step hurdles Equipment 6 hurdles Comments 1. reciprocal walking (2 laps) Tandem Details rail prn Comments fwd CGA X 6 each PT-OP-T Assessment and Plan Start: 12/19/24 08:13 Freq: Status: Active Protocol: Document 02/14/25 13:24 AB (Rec: 02/14/25 15:17 AB Laptop) Physical Therapy Assessment Goals sit to stand Impairment 5x in 16 sec Group Home Goal (LTG) Pt will improve 5x sit to stand to no greater than 13 sec to meet age related norms and dec risk for falls. 01/22 - goal met LTG Duration 03/13 6 min walk Short Term Goal (STG Pt will be able to complete a 6 min walk test ) 01/22 - stopped at 5:45 d/t fatigue; no c/o pain STG Duration 02/01 Welt Trimming Machine Operator Goal (LTG) Pt will be able to amb at least 1000ft in 6 min w/o inc pain greater than 2/10 to show improved activity tolerance. LTG Duration 03/13 DGI Impairment 14 Short Term Goal (STG Pt will score at least 17 on DGI to show dec risk for ) falls. 01/22 - scored 15/20 STG Duration 02/01 Welt Trimming Machine Operator Goal (LTG) Pt will score at least 20 on DGI to show dec risk for falls. LTG Duration 03/13 Assessment Summary Assessment Patient reports having to sciatic pain and R LE she can feel it in the knee, but comments it is not pain. Physical Therapy Plan Frequency and Duration Frequency of 2x/Week Treatment Duration of 12 treatment (weeks) Plan of Care Start 12/19/24 Date Plan of Care End 03/13/25 Date Next Visit Focus/Plan Next Note Type Treatment Note Next Visit Plan review/advance exercises as needed, work on LE strength and balance. cont w standing exercises. SL activities to challenge hip stabilizers, exercises for hip flexors review HEP and make notes on her copy
--- NOTE | 2025-02-21 18:05 | PT.OTN ---
Current Diagnoses Other chronic pain (02/21/25) Pain in right knee (02/21/25) Pain in left knee (02/21/25) Sciatica, right side (02/21/25) Sciatica, left side (02/21/25) Difficulty in walking, not elsewhere classified (02/21/25) Other abnormalities of gait and mobility (02/21/25) Physical Therapy Treatment Note PT-OP-A Visit Information Start: 12/19/24 08:13 Freq: Status: Active Protocol: Document 02/21/25 13:40 GG (Rec: 02/21/25 14:33 GG [id number]) Out-Patient Physical Therapy Visit Information Visit Information Visit Type Progress Note Visit Start Time 13:47 Visit Stop Time 14:30 Visit Number 12 Number of ORGANIC CHEMISTRY PROFESSOR Visits 0 PT-OP-B Current Condition Start: 12/19/24 08:13 Freq: Status: Active Protocol: Document 12/19/24 13:00 LR (Rec: 12/19/24 15:22 [facility] [id number]) Current Condition History of Current Condition Current Complaints balance, weakness, difficulty in walking History of Current Pt reports she has been tripping and she thinks it is Condition the shoes. She is touching things to help w/balance. She has recently started ozempic for sugar control and wants to go for walks. Dgt says she feels like robel is off balance and has a different style of walking now where she lat leans and is in ext. Dgt thinks there is something going on that is causing her to walk differently. Its been the past year that she has had this decline. Dgt saw her fall 3 times, caught her once before she face planted. She has been falling once a month. They are trips each time d/t catching her to, so always forward. She has a fear of stepping up/down a curb. Has SPC but hasn't used. pt reports B knee pain - up a slight incline hurts. It is sporadic. Got injections in B knees tuesday and that has made a lot of difference. Pt had R buttocks pain and lumbar spine and Dr. Garcia did injections and that helped. Now it occ pulls. The walking change has been the past couple years. Its been 5 years since she went for walks ( stopped d/t pain and SOB). Pt used to have issues w/R ankle hurting out of no where and would look like it wanted to turn then got better and the L felt better after. Treatment Goals Patient/Caregiver go for walks Goals PT-OP-C Subjective Start: 12/19/24 08:13 Freq: Status: Active Protocol: Document 02/21/25 13:40 GG (Rec: 02/21/25 14:33 GG [id number]) OP-PT Subjective Patient Comments Patient Comments Pt reports that her sciatic symptoms have been more bothersome recently, notes its only when she is walking . PT-OP-D Balance Start: 12/19/24 08:13 Freq: Status: Active Protocol: Document 12/19/24 13:00 [facility] (Rec: 12/19/24 15:22 [facility] [id number]) Balance Tests Warren Balance Test Warren Balance Test 44 Score PT-OP-E Functional Tests Start: 12/19/24 18:22 Freq: Status: Active Protocol: Document 02/21/25 13:40 GG (Rec: 02/21/25 14:33 GG [id number]) Functional Tests 6 Minute Walk Test Distance 889ft Comments 2 standing rest breaks; increased trunk lean w/ fatigue Dynamic Gait Index (DGI) Score 17 Five Times Sit to Stand Test Score 13 sec PT-OP-J Posture/Palpation/Skin Start: 12/19/24 08:13 Freq: Status: Active Protocol: Document 12/19/24 13:00 [facility] (Rec: 12/19/24 18:37 [facility] [id number]) Posture Evaluation Roxie Postural Classification System Roxie Postural Posterior/Anterior Classifications PT-OP-L Special Tests Start: 12/19/24 08:13 Freq: Status: Active Protocol: Document 12/19/24 13:00 [facility] (Rec: 12/19/24 15:22 [facility] [id number]) Special Tests Other Special Tests Special Tests B patellar reflexes WNL; R achilles unable to elicit but pt did not relax, L WNL PT-OP-M Strength Start: 12/19/24 08:13 Freq: Status: Active Protocol: Document 12/19/24 13:00 [facility] (Rec: 12/19/24 15:22 [facility] [id number]) Hip Strength Hip Manual Muscle Testing Right Flexion (L2) 3 Fair Extension (S1) 3- Fair- Abduction 3 Fair External Rotation 3 Fair Internal Rotation 4 Good Left Flexion (L2) 3+ Fair+ Extension (S1) 3 Fair Abduction 3 Fair External Rotation 3 Fair Internal Rotation 4- Good- Knee Strength Knee Manual Muscle Testing Right Flexion (S2) 4- Good- Extension (L3) 4- Good- Left Flexion (S2) 4- Good- Extension (L3) 4- Good- Ankle/Foot Strength Ankle and Foot Manual Muscle Testing Right Dorsiflexion (L4) 4 Good Plantarflexion (S1) 4+ Good+ Comments PF tested seated Left Dorsiflexion (L4) 4 Good Plantarflexion (S1) 4+ Good+ PT-OP-Q Treatments Start: 12/19/24 08:13 Freq: Status: Active Protocol: Document 02/21/25 13:40 GG (Rec: 02/21/25 14:33 GG [id number]) Therapeutic Exercises Sitting Exercises piriformis stretch Side bilateral Reps/Minutes 30s R Comments reviewed HEP Standing Exercises sit to stands Reps/Minutes 5x Comments silver chair Other Exercises testing Other Exercise Name 6MWT Manual Therapy Treatment Consent Patient gave verbal Yes consent for manual treatment Soft Tissue Mobilization piriformis Body Location R buttock Comments sustained pressure w/ active ER Neuro Re-Education Treatment Balance Activities testing Comments DGI Self-Care/Home Management Treatment Education Other Education pt ed regarding senior fitness classes to cont working on endurance and strength and potential insurance coverage for it. encouraged pt to consider. PT-OP-T Assessment and Plan Start: 12/19/24 08:13 Freq: Status: Active Protocol: Document 02/21/25 13:40 GG (Rec: 02/21/25 14:33 GG [id number]) Physical Therapy Assessment Goals sit to stand Impairment 5x in 16 sec Half-Way Goal (LTG) Pt will improve 5x sit to stand to no greater than 13 sec to meet age related norms and dec risk for falls. 01/22 - goal met LTG Duration 02/21 - achieved 6 min walk Short Term Goal (STG Pt will be able to complete a 6 min walk test ) 01/22 - stopped at 5:45 d/t fatigue; no c/o pain STG Duration 02/21 - achieved Returned Case Inspector Goal (LTG) Pt will be able to amb at least 1000ft in 6 min w/o inc pain greater than 2/10 to show improved activity tolerance. 02/21 - 889ft LTG Duration 03/13 DGI Impairment 14 Short Term Goal (STG Pt will score at least 17 on DGI to show dec risk for ) falls. 01/22 - scored 15/20 STG Duration 02/21 - achieved Returned Case Inspector Goal (LTG) Pt will score at least 20 on DGI to show dec risk for falls. LTG Duration 03/13 Assessment Summary Assessment Pt has improved in overall tolerance to exercise as seen by completion of 6MWT and 5x STS. Improved balance as seen by DGI to show some reduced fall risk, but still has some deficits w/ stepping over obstacles. Pt will cont to benefit from PT to build HEP and reduce sciatic symptoms for improve functional ability. Physical Therapy Plan Next Visit Focus/Plan Next Note Type Treatment Note Next Visit Plan review/advance exercises as needed, work on LE strength and balance. cont w standing exercises. SL activities to challenge hip stabilizers, exercises for hip flexors review HEP and make notes on her copy manual for piriformis, assess low back d/t sciatic symptoms plan to progress HEP toward D/C
--- NOTE | 2025-02-27 08:31 | PT.OPDS ---
Current Diagnoses Other chronic pain (02/21/25) Pain in right knee (02/21/25) Pain in left knee (02/21/25) Sciatica, right side (02/21/25) Sciatica, left side (02/21/25) Difficulty in walking, not elsewhere classified (02/21/25) Other abnormalities of gait and mobility (02/21/25) Visit Care Team Role Provider Type Kiara Kennedy DO Attending Provider Physician Family Provider Primary Care Provider Referring Provider Specialty: Family Practice Address: [address] [place] [address], [address], [facility] Email: [email or web address] Visit Number Visit Number 12 Discharge Summary PT-OP-B Current Condition Start: 12/19/24 08:13 Freq: Status: Active Protocol: Document 12/19/24 13:00 [facility] (Rec: 12/19/24 15:22 [facility] [id number]) Current Condition History of Current Condition Current Complaints balance, weakness, difficulty in walking History of Current Pt reports she has been tripping and she thinks it is Condition the shoes. She is touching things to help w/balance. She has recently started ozempic for sugar control and wants to go for walks. Dgt says she feels like robel is off balance and has a different style of walking now where she lat leans and is in ext. Dgt thinks there is something going on that is causing her to walk differently. Its been the past year that she has had this decline. Dgt saw her fall 3 times, caught her once before she face planted. She has been falling once a month. They are trips each time d/t catching her to, so always forward. She has a fear of stepping up/down a curb. Has SPC but hasn't used. pt reports B knee pain - up a slight incline hurts. It is sporadic. Got injections in B knees tuesday and that has made a lot of difference. Pt had R buttocks pain and lumbar spine and Dr. Garcia did injections and that helped. Now it occ pulls. The walking change has been the past couple years. Its been 5 years since she went for walks ( stopped d/t pain and SOB). Pt used to have issues w/R ankle hurting out of no where and would look like it wanted to turn then got better and the L felt better after. Treatment Goals Patient/Caregiver go for walks Goals PT-OP-C Subjective Start: 12/19/24 08:13 Freq: Status: Active Protocol: Document 02/21/25 13:40 GG (Rec: 02/21/25 14:33 GG [id number]) OP-PT Subjective Patient Comments Patient Comments Pt reports that her sciatic symptoms have been more bothersome recently, notes its only when she is walking . PT-OP-D Balance Start: 12/19/24 08:13 Freq: Status: Active Protocol: Document 12/19/24 13:00 [facility] (Rec: 12/19/24 15:22 [facility] [id number]) Balance Tests Warren Balance Test Warren Balance Test 44 Score PT-OP-E Functional Tests Start: 12/19/24 18:22 Freq: Status: Active Protocol: Document 02/21/25 13:40 GG (Rec: 02/21/25 14:33 GG [id number]) Functional Tests 6 Minute Walk Test Distance 889ft Comments 2 standing rest breaks; increased trunk lean w/ fatigue Dynamic Gait Index (DGI) Score 17 Five Times Sit to Stand Test Score 13 sec PT-OP-J Posture/Palpation/Skin Start: 12/19/24 08:13 Freq: Status: Active Protocol: Document 12/19/24 13:00 [facility] (Rec: 12/19/24 18:37 [facility] [id number]) Posture Evaluation Roxie Postural Classification System Roxie Postural Posterior/Anterior Classifications PT-OP-L Special Tests Start: 12/19/24 08:13 Freq: Status: Active Protocol: Document 12/19/24 13:00 [facility] (Rec: 12/19/24 15:22 [facility] [id number]) Special Tests Other Special Tests Special Tests B patellar reflexes WNL; R achilles unable to elicit but pt did not relax, L WNL PT-OP-M Strength Start: 12/19/24 08:13 Freq: Status: Active Protocol: Document 12/19/24 13:00 [facility] (Rec: 12/19/24 15:22 [facility] [id number]) Hip Strength Hip Manual Muscle Testing Right Flexion (L2) 3 Fair Extension (S1) 3- Fair- Abduction 3 Fair External Rotation 3 Fair Internal Rotation 4 Good Left Flexion (L2) 3+ Fair+ Extension (S1) 3 Fair Abduction 3 Fair External Rotation 3 Fair Internal Rotation 4- Good- Knee Strength Knee Manual Muscle Testing Right Flexion (S2) 4- Good- Extension (L3) 4- Good- Left Flexion (S2) 4- Good- Extension (L3) 4- Good- Ankle/Foot Strength Ankle and Foot Manual Muscle Testing Right Dorsiflexion (L4) 4 Good Plantarflexion (S1) 4+ Good+ Comments PF tested seated Left Dorsiflexion (L4) 4 Good Plantarflexion (S1) 4+ Good+ PT-OP-T Assessment and Plan Start: 12/19/24 08:13 Freq: Status: Active Protocol: Document 02/27/25 08:27 [facility] (Rec: 02/27/25 08:31 [facility] [id number]) Physical Therapy Assessment Goals sit to stand Impairment 5x in 16 sec Infectious Diseases Physician Goal (LTG) Pt will improve 5x sit to stand to no greater than 13 sec to meet age related norms and dec risk for falls. 01/22 - goal met LTG Duration 02/21 - achieved 6 min walk Short Term Goal (STG Pt will be able to complete a 6 min walk test ) 01/22 - stopped at 5:45 d/t fatigue; no c/o pain STG Duration 02/21 - achieved Senior Living Goal (LTG) Pt will be able to amb at least 1000ft in 6 min w/o inc pain greater than 2/10 to show improved activity tolerance. 02/21 - 889ft LTG Duration 03/13 DGI Impairment 14 Short Term Goal (STG Pt will score at least 17 on DGI to show dec risk for ) falls. 01/22 - scored 15/20 STG Duration 02/21 - achieved Senior Living Goal (LTG) Pt will score at least 20 on DGI to show dec risk for falls. LTG Duration 03/13 Assessment Summary Assessment Pt called d/t cancellation of last 2 appointments. Pt feels ready for DC and started looking at community balance programs to cont her progress. She made good progress w/dec fall risk with improvements in 6 min walk, sit to stand and DGI testing. DC Pt to [facility] and community balance programs. Physical Therapy Plan Discharge Physical Therapy Discharge Reasons Patient Request
== END 2025-02-28 09:37 | disposition home or self-care (01) ==
LOC: PHYS 13:45
PROVIDERS: Family Provider Family Medicine; PCP Family Medicine; Referring Provider Family Medicine; Visit Provider Family Medicine
DX: M54.31 Sciatica, right side (principal); M54.32 Sciatica, left side; M25.561 Pain in right knee; M25.562 Pain in left knee; G89.29 Other chronic pain; R26.2 Difficulty in walking, not elsewhere classified; R26.89 Other abnormalities of gait and mobility
CPT/HCPCS: 97110; 97112; 97116; 97140; 97162; 97535

== ENCOUNTER → 2025-02-26 11:36 | Outpatient (CLI) | payer MEDICARE, SELFPAY ==
[2025-02-26 13:01] LABS: Add Manual Diff / Slide Review NO; Basophils Absolute Auto 0 /uL (0-100); Basophils Percent Auto 0.4 % (0-2); Eosinophils Absolute Auto 200 /uL (0-450); Eosinophils Percent Auto 3.1 % (2-4); Hematocrit 36.6 % (36-46); Hemoglobin 12.5 g/dL (12.0-16.0); Lymphocytes Absolute Auto 2900 /uL (1100-4500); Lymphocytes Percent Auto 37.6 % (25-40); Mean Corpuscular HGB Conc 34.2 % (30-36); Mean Corpuscular Volume 87.5 fL (80-100); Monocytes Absolute Auto 500 /uL (0-900); Monocytes Percent Auto 6.7 % (3-14); Neutrophils Absolute Auto 4100 /uL (1500-7000); Neutrophils Percent Auto 52.2 % (50-75); Platelet Count 325 X10^3/uL (150-400); Red Blood Cell Count 4.18 X10^6/uL (4.0-5.2); Red Cell Distribution Width 14.7 % (11.6-14.8); White Blood Cell Count 7.8 X10^3/uL (4.5-11.0)
[2025-02-26 13:20] LABS: HEMOLYSIS < 15 (0-50); Iron 62 ug/dL (37-170)
[2025-02-26 13:35] LABS: Percent Iron Saturation 22 % (15-50); Total Iron Binding Capacity 285 ug/dL (265-497); Transferrin 244 mg/dL (206-381)
== END ==
LOC: LAB 11:38
PROVIDERS: Family Provider Family Medicine; PCP Family Medicine; Referring Provider Family Medicine; Visit Provider Family Medicine
DX: D69.9 Hemorrhagic condition, unspecified (principal); R23.3 Spontaneous ecchymoses; D63.8 Anemia in other chronic diseases classified elsewhere
CPT/HCPCS: 36415; 83540; 83550; 85025

== ENCOUNTER → 2025-03-11 09:22 | Outpatient (CLI) | payer MEDICARE, SELFPAY ==
--- NOTE | 2025-03-11 09:23 | DI.RAD.S_ITS ---
PROCEDURE: XR LUMBAR SPINE MIN 4V INDICATIONS: BACK PAIN TECHNIQUE: 5 views of the lumbar spine were acquired, including bilateral oblique views. COMPARISON: [facility], , XR LUMBAR SPINE MIN 4V, 12/29/2022, 13:39. FINDINGS: Bones: 5 nonrib-bearing vertebrae are present. Dextroconvex scoliosis. Grade 1 anterolisthesis of L4 on L5. Multilevel diffuse disc space narrowing, endplate sclerosis and osteophytosis, mildly progressed since prior radiograph in December 2022. Inferior lumbar facet arthropathy. No vertebral body compression fractures. No suspicious bony lesions. Soft tissues: Overlying bowel gas pattern is normal. No suspicious soft tissue calcifications. Oblique images: No pars defects. IMPRESSION: No acute bony abnormality. Compared to prior radiograph on 12/29/2022, minimally progressed degenerative disc disease and arthropathy. Stable L4-L5 grade 1 anterolisthesis Approved by: Wendy Reich M.D.,Ph.D. on 03/11/2025 at 11:05
== END ==
PROVIDERS: Family Provider Family Medicine; PCP Family Medicine; Referring Provider Physical Medicine & Rehabilitation; Visit Provider Physical Medicine & Rehabilitation
DX: M43.16 Spondylolisthesis, lumbar region (principal); M54.32 Sciatica, left side; M41.9 Scoliosis, unspecified; M25.78 Osteophyte, vertebrae; E11.22 Type 2 diabetes mellitus with diabetic chronic kidney disease; M47.896 Other spondylosis, lumbar region; M25.561 Pain in right knee; M25.562 Pain in left knee; G89.29 Other chronic pain
CPT/HCPCS: 72110; 99214

== ENCOUNTER 2025-04-09 12:22 | Outpatient (CLI) | payer MEDICARE, SELFPAY ==
[2025-04-09] VITALS (7 sets, daily range): BP systolic 123–152; BP diastolic 57–78; PULSE 78–83; RESP 15–19; TEMP 36; O2SAT 95–98
[2025-04-09] MEDS: MIDAZOLAM 2 MG/2 ML VIAL IV (13:19)
[2025-04-09] MEDS: BUPIVACAINE 0.25% (PF) VIAL 2 ML INJ (13:27)
[2025-04-09] MEDS: DEXAMETHASONE 10 MG/ML VIAL INJ (13:27)
[2025-04-09] MEDS: BETAMETHASONE 30 MG/5 ML MDV 12 MG INJ (13:29)
[2025-04-09] MEDS: DEXAMETHASONE 10 MG/ML VIAL IV (13:30)
--- NOTE | 2025-04-09 13:35 | P.PCN_ITS ---
Date/Time/Diagnoses Date of procedure: 04/09/25 Time of procedure: 13:35 Pre-procedure diagnosis: 1. HNP WITH RADICULAR FEATURES, 2. MULTILEVEL CENTRAL STENOSIS, Post-procedure diagnosis: same Procedure Notes Procedure: 1. FLUOROSCOPICALLY GUIDED CONTRAST CONTROLLED INTERLAMINAR EPIDURAL STEROID INJECTION - L3/4 Indications: [place] is referred by Dr. Kennedy for treatment of Bilateral Foraminal Stenosis L>R LE symptoms. Physician: Haseeb Flaherty Total Fluoroscopy time (seconds): 8 Total sedation minutes: 12 Complications: none Procedure in detail & Post-procedure care: FINDINGS Multilevel Central Spinal Stenosis with Nerve Root Compression DESCRIPTION OF PROCEDURE Fluoroscopically guided, contrast-controlled L3/4 translaminar epidural steroid injection. Following review of allergy and review of potential side effects and complications, including, but not necessarily limited to, infection, allergic reaction, local tissue breakdown, temporary as well as permanent nerve injury, paralysis, stroke and possible , the patient indicated that the patient understood and agreed to proceed. An informed consent document was signed by the patient, witnessed by a nurse, and placed in the patient's chart. Additionally, other treatment options including modalities, medications, and physical therapy were reviewed with the patient. After review of previous anaesthesic history and IV conscious sedation the patient was deemed safe to proceed with today?s procedure with IV conscious sedation as ASA class II designation. Safety time-out was performed to confirm patient ID, procedure to be performed and site of procedure. IV sedation was accomplished with a combination of 2mg of Versed was administered by the RN after DO order, titrated to patient comfort during the course of the procedure while the patient remained responsive to all verbal commands. In the prone position, following sterile prep and drape of the lumbar region, the L3/4 translaminar space was identified fluoroscopically. The skin was anesthetized via a 25-gauge, 1.5-inch needle with 1% lidocaine solution. At this point, a 22-gauge short bevel spinal needle was atraumatically introduced and advanced under fluoroscopic guidance into the region of the L3/4 translaminar space. Depth was confirmed on lateral view. Radiological data, including multiple fluoroscopic views of the lumbar spine, reveal a spinal needle at the L3/4 translaminar space. Lateral views then show placement of the needle in the epidural space. Subsequent views show contrast material flowing superiorly and inferiorly in the epidural space. No vascular or intrathecal uptake is observed. At this point, using loss of resistance technique with saline and air, the epidural space was entered. This was confirmed following negative aspiration with injection of approximately 1.5 cc of Isovue 200, showing excellent epidural flow without vascular or intrathecal uptake. At this point, 1cc of 0.25% mar karine solution combined with 3cc or 10mg of dexamethasone and 12mg of betamethasone was injected without incident. The patient tolerated the procedure well without signs or symptoms of complications prior to transfer to the recovery area continued monitoring without incident. The patient was then transferred to the recovery area where they were observed for an appropriate period of time after the injection. The patient reported a VAS score of 6 prior to the procedure and a post- procedure VAS of 0. POST OP INSTRUCTIONS The patient was provided a Pain Log to continue to record their response to the target-specific procedure prior to follow-up visit with their referring physician. Additionally, specific post-injection care instructions and a contact number to our office were provided if concerns arise regarding possible complications associated with the procedure are suspected.
== END 2025-04-09 13:49 | disposition home or self-care (01) ==
PROVIDERS: Family Provider Family Medicine; PCP Family Medicine; Referring Provider Family Medicine; Visit Provider Physical Medicine & Rehabilitation
DX: M48.061 Spinal stenosis, lumbar region without neurogenic claudication (principal); M51.16 Intervertebral disc disorders with radiculopathy, lumbar region
CPT/HCPCS: 62323; 99152; J0702; J1100; J2250

== ENCOUNTER → 2025-08-15 11:43 | Outpatient (CLI) | payer MEDICARE, SELFPAY ==
[2025-08-15 12:17] LABS: Hematocrit 38.1 % (36-46); Hemoglobin 13.0 g/dL (12.0-16.0)
[2025-08-15 12:31] LABS: Blood Urea Nitrogen 21 mg/dL (7-17); Calcium 9.9 mg/dL (8.4-10.2); Carbon Dioxide 27 mmol/L (22-32); Chloride 96 mmol/L (98-107); Estimated Glomerular Filt Rate 57 mL/min (>60); Glucose 109 mg/dL (70-99); HEMOLYSIS < 15 (0-50); Potassium 3.8 mmol/L (3.4-5.1); Sodium 134 mmol/L (137-145)
[2025-08-15 12:50] LABS: Protein (Total) Urine Random 11 mg/dL (0-12); Protein Creatinine Ratio Urine 0.03 GRAM/24H
== END ==
PROVIDERS: Family Provider Family Medicine; PCP Family Medicine; Referring Provider Student in an Organized Health Care Education/Training Program; Visit Provider Student in an Organized Health Care Education/Training Program
DX: D70.9 Neutropenia, unspecified (principal); D63.1 Anemia in chronic kidney disease; N25.81 Secondary hyperparathyroidism of renal origin; N05.9 Unspecified nephritic syndrome with unspecified morphologic changes; R80.9 Proteinuria, unspecified
CPT/HCPCS: 36415; 80048; 82570; 83970; 84156; 85014; 85018